=== PATIENT | female | born 1960 | race Caucasian/White ===

== ENCOUNTER 2018-03-21 19:49 | Emergency (ER) | payer MEDICAID ==
--- NOTE | 2018-03-21 20:24 | ER Document Report ---
ED Medical Screen (RME) - General Chief Complaint: Closed Head Injury Stated Complaint: HEAD INJURY Notes: Patient is a 57-year-old female who presents to the emergency department after being accidentally struck by a door yesterday at 1500. She states she has been a little "off" and has not been able to do ordinary things properly, such as fold laundry, cook, and other ADLs. She has complaints of photophobia and phonophobia. She states she has left-sided facial numbness. TRAVEL OUTSIDE OF THE [place] IN LAST 30 DAYS: No Review of Systems - Review of Systems Notes: EENT: Photophobia and phonophobia NEUROLOGICAL: Positive for weakness and dizziness. Denies altered mental status or loss of consciousness. Physical Exam - Vital signs Vitals: Temp Pulse Resp BP Pulse Ox 98.5 F 99 20 121/65 98 03/21/18 19:59 03/21/18 19:59 03/21/18 19:59 03/21/18 19:59 03/21/18 19:59 - Neurological Orientation: AAOx4 Bess Coma Scale Eye Opening: Spontaneous Bess Coma Scale Verbal: Oriented [place] Coma Scale Motor: Obeys Commands [place] Coma Scale Total: 15 Speech: Normal Course - Vital Signs Vital signs: Temp Pulse Resp BP Pulse Ox 98.5 F 99 20 121/65 98 03/21/18 19:59 03/21/18 19:59 03/21/18 19:59 03/21/18 19:59 03/21/18 19:59
[2018-03-21] MEDS ORDERED: ACETAMINOPHEN 325 MG TABLET PO ONE (20:27)
--- NOTE | 2018-03-21 21:52 | RADIOLOGY REPORT (SQ) ---
CT HEAD WITHOUT IV CONTRAST HISTORY: Head trauma. COMPARISON: None. TECHNIQUE: CT scan of the brain without contrast. This exam was performed according to our departmental dose-optimization program, which includes automated exposure control, adjustment of the mA and/or kV according to patient size and/or use of iterative reconstruction technique. FINDINGS: 3.9 x 3.9 x 3.0 cm well-circumscribed hypodense mass centered within the right parietal region near the aguilar-white junction, with surrounding hypodensity which may represent vasogenic edema. There is mass effect on the surrounding parenchyma with 9 mm right to left midline shift. There is also uncal herniation. There is a small focus of hyperdensity abutting the posterior aspect of the mass (axial image 18/34). No air-fluid levels in the paranasal sinuses. Calvarium is intact. IMPRESSION: 3.9 cm parenchymal mass centered at the right parietal region with surrounding edema. Findings may represent primary or secondary malignancy versus abscess. Contrast-enhanced MRI is recommended for complete evaluation. 9 mm right to left midline shift and right-sided uncal herniation is also present. Small focus of hyperdensity abutting the posterior aspect of the mass. Differential includes tiny focus of hemorrhage, calcification, or soft tissue.
[2018-03-21] MEDS ORDERED: DEXAMETHASONE SOD PHOS INJ 10 MG/1 ML VIAL IV ONE (22:07)
--- NOTE | 2018-03-21 22:34 | ER Document Report ---
ED General - General Chief Complaint: Closed Head Injury Stated Complaint: HEAD INJURY Time Seen by Provider: 03/21/18 20:47 Notes: Patient is a 57-year-old female with a past medical history of COPD, hypertension, hyperlipidemia, coronary artery disease, who presents with head trauma that occurred yesterday. She states that a door hit her head approximately 24 hours ago and since that time she has felt somewhat more confused. She does however relate that over the past 1-2 weeks she has noticed that she has a far worse dexterity on her left hand versus her right preventing her from performing activities of daily living such as folding closed. She also reports that the left side of her face is numb. States that she does feel somewhat weak on her left side. This is been ongoing and progressively worsening over the last 1 week. She denies a history of similar symptoms in the past. Nothing improves or worsens her symptoms. She denies associated chest pain or shortness of breath. No fever or constitutional symptoms. She does note that she intimately has a dull, throbbing, global headache. Nothing improves or worsens the headache. She has not seen her general doctor regarding these concerns. TRAVEL OUTSIDE OF THE [place] IN LAST 30 DAYS: No - Related Data Allergies/Adverse Reactions: No Known Allergies Allergy (Unverified 03/21/18 22:39) Past Medical History - General Information source: Patient - Social History Smoking Status: Current Every Day Smoker Chew tobacco use (# tins/day): No Frequency of alcohol use: None Drug Abuse: None Lives with: Spouse/Significant other Family History: Reviewed & Not Pertinent Patient has suicidal ideation: No Patient has homicidal ideation: No - Past Medical History Cardiac Medical History: Reports: Hx Hypertension Pulmonary Medical History: Reports: Hx Asthma, Hx COPD Endocrine Medical History: Reports: Hx Diabetes Mellitus Type 2 Renal/ Medical History: Denies: Hx Peritoneal Dialysis Musculoskeletal Medical History: Reports Hx Arthritis Past Surgical History: Reports: Hx Cardiac Catheterization - 7 stents, Hx Cholecystectomy, Hx Orthopedic Surgery Review of Systems - Review of Systems Notes: Constitutional: Negative for fever. HENT: Negative for sore throat. Eyes: Negative for visual changes. Cardiovascular: Negative for chest pain. Respiratory: Negative for shortness of breath. Gastrointestinal: Negative for abdominal pain, vomiting or diarrhea. Genitourinary: Negative for dysuria. Musculoskeletal: Negative for back pain. Skin: Negative for rash. Neurological: Positive for headache, left facial numbness, left-sided dexterity loss 10 point ROS negative except as marked above and in HPI. Physical Exam - Vital signs Vitals: Temp Pulse Resp BP Pulse Ox 98.5 F 99 20 121/65 98 03/21/18 19:59 03/21/18 19:59 03/21/18 19:59 03/21/18 19:59 03/21/18 19:59 Notes: PHYSICAL EXAMINATION: GENERAL: Well-appearing, well-nourished and in no acute distress. HEAD: Atraumatic, normocephalic. EYES: Pupils equal round and reactive to light, extraocular movements intact, sclera anicteric, conjunctiva are normal. ENT: nares patent, oropharynx clear without exudates. Moist mucous membranes. NECK: Normal range of motion, supple without lymphadenopathy LUNGS: Breath sounds clear to auscultation bilaterally and equal. No wheezes rales or rhonchi. HEART: Regular rate and rhythm without murmurs ABDOMEN: Soft, nontender, normoactive bowel sounds. No guarding, no rebound. No masses appreciated. EXTREMITIES: Normal range of motion, no pitting or edema. No cyanosis. NEUROLOGICAL: Face symmetric. Tongue protrudes midline. Extraocular motions intact. Pupils are 2 mm and equally reactive. Facial sensation diminished on the left. Normal speech, normal gait. Moderate dysdiadochokinesia on the right hand. 4+ out of 5 strength in the biceps and triceps on left as well as 4 + out of 5 on the distal and proximal strength on the left. 5 out of 5 biceps and triceps right upper extremity and right lower extremity PSYCH: Normal mood, normal affect. SKIN: Warm, Dry, normal turgor, no rashes or lesions noted. Course - Re-evaluation Re-evalutation: 03/21/18 22:28 Patient presents with complaints of 1 week of left facial numbness, lack of dexterity of the left hand and was apparently struck in the head by door yesterday. The head trauma component itself is not worrisome and I do not suspect that there is any effect of her nerve symptoms related to the head trauma yesterday. Particularly the patient reports that the lack of activity in the left hand as well as left-sided numbness has been ongoing for at least 1 week. For this reason a CT scan of the head was obtained and unfortunately does show a 4 cm mass in the right parietal lobe with a 9 mm leftward shift with associated vasogenic edema and uncal herniation on the right side. Patient was given 10 mg of dexamethasone IV. She looks remarkably well given her CT report. I did discuss with neurosurgery on-call at [facility] Dr. Dhillon who has accepted the patient in transfer. 03/22/18 02:04 Patient remains well in appearance, no change in neurologic assessment or exam. Continues to be alert and talking with family. Awaiting transport to [facility]. - Vital Signs Vital signs: Temp Pulse Resp BP Pulse Ox 98.5 F 99 20 121/65 98 03/21/18 19:59 03/21/18 19:59 03/21/18 19:59 03/21/18 19:59 03/21/18 19:59 - Laboratory Result Diagrams: 03/21/18 22:35 03/21/18 22:35 Laboratory results interpreted by me: 03/21/18 03/21/18 22:35 22:35 MCH 33.5 H Plt Count 139 L Glucose 166 H - Diagnostic Test Radiology reviewed: Image reviewed, Reports reviewed Radiology results interpreted by me: 03/22/18 02:04 CT head: Large mass in the right parietal lobe Discharge - Discharge Clinical Impression: Right parietal lobe mass, Uncal herniation Condition: Fair Disposition: [place]
[2018-03-21] MEDS ORDERED: NICOTINE 21 MG/24 HR PATCH.TD24 TD ONE (22:38)
[2018-03-21 22:51] LABS: ABSOLUTE BASOPHILS # (AUTO) 0.1 10^3/uL (0.0-0.2); ABSOLUTE LYMPHOCYTES (AUTO) 2.7 10^3/uL (0.5-4.7); ABSOLUTE MONOCYTES (AUTO) 0.6 10^3/uL (0.1-1.4); ABSOLUTE NEUT (AUTO) 3.1 10^3/uL (1.7-8.2); BASOPHILS % (AUTO) 0.9 % (0-2); EOSINOPHILS % (AUTO) 0.7 % (0-6); HEMATOCRIT 39.9 % (36.0-47.0); HEMOGLOBIN 14.1 g/dL (12.0-15.5); MEAN CORPUSCULAR HEMOGLOBIN 33.5 pg (27.0-33.4); MEAN CORPUSCULAR HGB CONC 35.3 g/dL (32.0-36.0); MEAN CORPUSCULAR VOLUME 95 fl (80-97); MONOCYTES % (AUTO) 9.4 % (3-13); PLATELET COUNT 139 10^3/uL (150-450); TOTAL CELLS COUNTED % (AUTO) 100 %; WHITE BLOOD COUNT 6.5 10^3/uL (4.0-10.5)
[2018-03-21 23:11] LABS: ALANINE AMINOTRANSFERASE 33 U/L (9-52); ALBUMIN 4.1 g/dL (3.5-5.0); ALKALINE PHOSPHATASE 92 U/L (38-126); ANION GAP 13 (5-19); ASPARTATE AMINO TRANSFERASE 29 U/L (14-36); BILIRUBIN,DIRECT 0.2 mg/dL (0.0-0.4); BILIRUBIN,TOTAL 0.5 mg/dL (0.2-1.3); BLOOD UREA NITROGEN 12 mg/dL (7-20); CALCIUM 9.5 mg/dL (8.4-10.2); CARBON DIOXIDE 27 mmol/L (22-30); CHLORIDE 103 mmol/L (98-107); GLUCOSE 166 mg/dL (75-110); POTASSIUM 4.5 mmol/L (3.6-5.0); SODIUM 143.3 mmol/L (137-145)
[2018-03-22] MEDS ORDERED: ALBUTEROL SULFATE 0.083% NEB 2.5 MG/3 ML AMPUL NEB SCH (06:00)
[2018-03-22 07:47] VITALS: BP 113/65
--- NOTE | 2018-03-22 07:47 | ER Document Report ---
Doctor's Note Notes: 03/22/18 07:46 Transport is here to take the patient to [place]. Vital signs are stable. Patient appears comfortable. Patient is stable for transport.
== END 2018-03-22 08:00 | disposition short-term general hospital (02) ==
LOC: ER 19:49
DX: G93.89 Other specified disorders of brain (principal); G93.5 Compression of brain; G93.6 Cerebral edema; R41.0 Disorientation, unspecified; R20.0 Anesthesia of skin; R27.8 Other lack of coordination; S09.90XA Unspecified injury of head, initial encounter; W22.8XXA Striking against or struck by other objects, initial encounter; R51 Headache; J44.9 Chronic obstructive pulmonary disease, unspecified; I10 Essential (primary) hypertension; I25.10 Atherosclerotic heart disease of native coronary artery without angina pectoris; F17.200 Nicotine dependence, unspecified, uncomplicated; E11.9 Type 2 diabetes mellitus without complications; Z95.5 Presence of coronary angioplasty implant and graft
CPT/HCPCS: 94640; 99285; 96374; 36415; 85025; 80053; 70450; J1100

== ENCOUNTER 2018-06-30 20:31 | Emergency (ER) | payer MEDICAID, OTHER ==
[2018-06-30] MEDS ORDERED: NORMAL SALINE 1000 ML 1,000 ML IV ONE (22:30)
[2018-06-30] MEDS ORDERED: MAG HYDROX/AL HYDROX/SIMETH SUSP 30 ML UDCUP PO ONE (22:32)
[2018-06-30] MEDS ORDERED: ONDANSETRON HCL INJ/PF 4 MG/2 ML SDV IV ONE (22:32)
[2018-06-30] MEDS ORDERED: LIDOCAINE 2% VISCOUS SOLN 20 ML UDCUP PO ONE (22:32)
[2018-06-30] MEDS ORDERED: METOCLOPRAMIDE HCL ORAL SOLN 10 MG/10 ML UDCUP PO ONE (22:32)
--- NOTE | 2018-06-30 22:36 | ER Document Report ---
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 Patient states that she is currently on chemo. This is her third cycle. She gets that for 3 days every 18. Her last chemo was 6 days ago. She is following up with Dr. Hester, oncology in [place]. Patient's not undergoing any radiation. She states that her last radiation treatment was in March and that was for the metastasis to the brain. Patient denies any fever, chills, shortness of breath. Patient does have a history of hypertension, hyperlipidemia, diabetes, coronary artery disease. TRAVEL OUTSIDE OF THE [place] IN LAST 30 DAYS: No - HPI Onset: Other - 2 days Quality of pain: Throbbing Severity: Moderate Associated symptoms: Diarrhea, Nausea, Vomiting Exacerbated by: Movement, Coughing, Deep breathing Relieved by: Denies Similar symptoms previously: No Recently seen / treated by doctor: Yes - Related Data Allergies/Adverse Reactions: No Known Allergies Allergy (Unverified 03/21/18 22:39) Past Medical History - General Information source: Patient - Social History Smoking Status: Current Some Day Smoker Frequency of alcohol use: None Drug Abuse: None Family History: Reviewed & Not Pertinent Patient has suicidal ideation: No Patient has homicidal ideation: No - Past Medical History Cardiac Medical History: Reports: Hx Hypertension Pulmonary Medical History: Reports: Hx Asthma, Hx COPD Endocrine Medical History: Reports: Hx Diabetes Mellitus Type 2 Renal/ Medical History: Denies: Hx Peritoneal Dialysis Musculoskeletal Medical History: Reports Hx Arthritis Past Surgical History: Reports: Hx Cardiac Catheterization - 7 stents, Hx Cholecystectomy, Hx Neurologic Surgery - brain tumor removed 02/2018, Hx Orthopedic Surgery Review of Systems - Review of Systems Constitutional: No symptoms reported EENT: No symptoms reported Cardiovascular: No symptoms reported Respiratory: No symptoms reported Gastrointestinal: Diarrhea, Nausea, Vomiting Genitourinary: No symptoms reported Female Genitourinary: No symptoms reported Musculoskeletal: See HPI Skin: No symptoms reported Hematologic/Lymphatic: No symptoms reported Neurological/Psychological: No symptoms reported -: Yes All other systems reviewed and negative Physical Exam - Vital signs Vitals: Temp Pulse Resp BP Pulse Ox 98.8 F 114 H 16 120/68 100 06/30/18 20:42 06/30/18 20:42 06/30/18 20:42 06/30/18 20:42 06/30/18 20:42 - Notes Notes: PHYSICAL EXAMINATION: GENERAL: Well-appearing, well-nourished and in no acute distress. HEAD: Atraumatic, normocephalic. EYES: Pupils equal round and reactive to light, extraocular movements intact, conjunctiva are normal. ENT: Nares patent, oropharynx clear without exudates. Moist mucous membranes. NECK: Normal range of motion, supple without lymphadenopathy LUNGS: Breath sounds clear to auscultation bilaterally and equal. No wheezes rales or rhonchi. HEART: Regular rate and rhythm without murmurs. Sternal tenderness to palpation. ABDOMEN: Soft, nontender, nondistended abdomen. No guarding, no rebound. No masses appreciated. Female : deferred Musculoskeletal: Normal range of motion, no pitting or edema. No cyanosis. NEUROLOGICAL: Cranial nerves grossly intact. Normal speech, normal gait. Normal sensory, motor exams PSYCH: Normal mood, normal affect. SKIN: Warm, Dry, normal turgor, no rashes or lesions noted. Course - Re-evaluation Re-evalutation: 06/30/18 23:06 EKG: Ventricular rate 99, MO interval 132, QRS duration 82, QTc 468, normal sinus rhythm, no ST segment elevation. 07/01/18 01:23 Pancytopenia appreciated on lab work. Patient denies any hematemesis, melena, hematochezia. Patient's magnesium is low. Magnesium sulfate ordered. Patient given a liter of fluids. Patient was given fentanyl, GI cocktail. Patient st ates that the GI cocktail helped minimally with her symptoms. She states that the fentanyl did improve the sternal pain. Chest x-ray did not show an acute process. Sternal x-ray does not show any fracture. Patient continues to have pain with palpation. Troponin is within normal limits. EKG did not show an ST segment elevation. I contacted [facility] for transfer. Transfer was accepted. Patient currently stable. - Vital Signs Vital signs: Temp Pulse Resp BP Pulse Ox 98.8 F 114 H 16 120/68 100 06/30/18 20:42 06/30/18 20:42 06/30/18 20:42 06/30/18 20:42 06/30/18 20:42 - Laboratory Result Diagrams: 06/30/18 23:23 06/30/18 23:23 Laboratory results interpreted by me: 06/30/18 06/30/18 06/30/18 22:55 23:23 23:23 WBC 0.5 L* RBC 2.12 L Hgb 7.3 L Hct 20.3 L MCH 34.5 H Plt Count 68 L Sodium 133.9 L Creatinine 0.48 L Glucose 200 H Magnesium 1.5 L AST 12 L Total Protein 5.5 L Albumin 3.3 L Urine Protein 30 H Urine Glucose (UA) 50 H Urine Ketones TRACE H Urine Blood SMALL H Urine Urobilinogen 2.0 H Discharge - Discharge Clinical Impression: Pancytopenia due to chemotherapy, Hypomagnesemia, Dehydration Nausea & vomiting Qualifiers: Vomiting type: unspecified Vomiting Intractability: non-intractable Qualified Code(s): R11.2 - Nausea with vomiting, unspecified Condition: Stable Disposition: [facility]
--- NOTE | 2018-06-30 23:03 | RADIOLOGY REPORT (SQ) ---
EXAM DESCRIPTION: XR CHEST 2 VIEWS COMPLETED DATE/TME: 06/30/2018 22:31 CLINICAL HISTORY: 57 years, Female, sternal pain COMPARISON: None. NUMBER OF VIEWS: 2 TECHNIQUE: Frontal and lateral views of the chest LIMITATIONS: None. FINDINGS: Heart size is normal. [id number] catheter in place. Lungs are clear. No pneumothorax IMPRESSION: No acute cardiopulmonary process copyright 2010 [employer]- All Rights Reserved
--- NOTE | 2018-06-30 23:05 | RADIOLOGY REPORT (SQ) ---
EXAM DESCRIPTION: XR STERNUM 2 OR MORE VIEWS COMPLETED DATE/TME: 06/30/2018 00:00 CLINICAL HISTORY: 57 years, Female, STERNAL PAIN COMPARISON: None. NUMBER OF VIEWS: 2 TECHNIQUE: 2 views of the sternum LIMITATIONS: None. FINDINGS: Overlying [id number] catheter. Chronic changes to the sternum with no radiographic evidence for sternal fracture or cortical disruption. IMPRESSION: No acute osseous abnormality copyright 2010 [employer]- All Rights Reserved
[2018-06-30 23:16] LABS: AMORPHOUS SEDIMENT,URINE TRACE /HPF; APPEARANCE,URINE SLIGHTLY-CLOUDY; BILIRUBIN,URINE NEGATIVE (NEGATIVE); GLUCOSE, URINE 50 mg/dL (NEGATIVE); KETONES,URINE TRACE mg/dL (NEGATIVE); LEUKOCYTE ESTERASE,URINE NEGATIVE (NEGATIVE); NITRITE,URINE NEGATIVE (NEGATIVE); PROTEIN,URINE 30 mg/dL (NEGATIVE); URINE SPECIFIC GRAVITY 1.017
[2018-06-30 23:17] LABS: COLOR,URINE YELLOW
[2018-06-30] MEDS ORDERED: FENTANYL CITRATE INJ/PF 100 MCG/2 ML AMPUL IV ONE (23:40)
[2018-06-30 23:52] LABS: HEMATOCRIT 20.3 % (36.0-47.0); MEAN CORPUSCULAR HEMOGLOBIN 34.5 pg (27.0-33.4); MEAN CORPUSCULAR VOLUME 96 fl (80-97); RED BLOOD COUNT 2.12 10^6/uL (3.72-5.28); RED CELL DISTRIBUTION WIDTH 13.1 % (11.5-14.0)
[2018-06-30 23:54] LABS: ALANINE AMINOTRANSFERASE 32 U/L (9-52); ALBUMIN 3.3 g/dL (3.5-5.0); ALKALINE PHOSPHATASE 72 U/L (38-126); ANION GAP 8 (5-19); ASPARTATE AMINO TRANSFERASE 12 U/L (14-36); BILIRUBIN,DIRECT 0.1 mg/dL (0.0-0.4); BILIRUBIN,TOTAL 0.9 mg/dL (0.2-1.3); BLOOD UREA NITROGEN 14 mg/dL (7-20); CALCIUM 8.5 mg/dL (8.4-10.2); CARBON DIOXIDE 24 mmol/L (22-30); CHLORIDE 102 mmol/L (98-107); GLUCOSE 200 mg/dL (75-110); POTASSIUM 3.6 mmol/L (3.6-5.0); SODIUM 133.9 mmol/L (137-145); TOTAL PROTEIN 5.5 g/dL (6.3-8.2)
[2018-07-01 00:18] LABS: PLATELET COMMENT DECREASED; TOXIC GRANULATION SLIGHT
[2018-07-01 00:19] LABS: PLATELET COUNT 68 10^3/uL (150-450)
[2018-07-01 00:24] LABS: HEMOGLOBIN 7.3 g/dL (12.0-15.5); WHITE BLOOD COUNT 0.5 10^3/uL (4.0-10.5)
[2018-07-01] MEDS: MAGNESIUM SULFATE/D5W 1 GM/100 ML RTUPB IV SCH ×2 (01:23→02:33)
[2018-07-01 02:05] VITALS: BP 99/56
[2018-07-01 12:52] LABS: PATH REVIEW PATHOLOGIST REVIEWED
--- NOTE | 2018-07-01 21:11 | EKG REPORT ---
SEVERITY:- ABNORMAL ECG - SINUS RHYTHM CONSIDER POSTERIOR INFARCT BORDERLINE T WAVE ABNORMALITIES : Confirmed by: Rachel Dennis 01-Jul-2018 21:10:43
== END 2018-07-01 03:03 | disposition short-term general hospital (02) ==
LOC: ER 20:31
DX: D61.810 Antineoplastic chemotherapy induced pancytopenia (principal); T45.1X5A Adverse effect of antineoplastic and immunosuppressive drugs, initial encounter; C34.90 Malignant neoplasm of unspecified part of unspecified bronchus or lung; C79.31 Secondary malignant neoplasm of brain; R11.2 Nausea with vomiting, unspecified; R19.7 Diarrhea, unspecified; E83.42 Hypomagnesemia; E86.0 Dehydration; M89.8X8 Other specified disorders of bone, other site; Z92.3 Personal history of irradiation; I10 Essential (primary) hypertension; I25.10 Atherosclerotic heart disease of native coronary artery without angina pectoris; E11.9 Type 2 diabetes mellitus without complications; F17.200 Nicotine dependence, unspecified, uncomplicated; Z95.5 Presence of coronary angioplasty implant and graft; J44.9 Chronic obstructive pulmonary disease, unspecified
CPT/HCPCS: 93005; 99284; 96361; 96375; 96365; 96366; 36415; 87086; 83735; 85025; 80053; 81001; 84484; 71046; 71120; 93010; J3010; J3490 ×3; J3475; J2405; J7030

== ENCOUNTER 2018-08-09 05:07 | Inpatient (IN) | payer MEDICAID ==
--- NOTE | 2018-08-09 05:20 | ER Document Report ---
ED Medical Screen (RME) - General Stated Complaint: FALL/HEAD INJURY Time Seen by Provider: 08/09/18 05:17 Notes: 57-year-old female who comes by EMS after a fall, it is unclear whether patient had a syncopal episode or seizure, she does have a history of seizures and has 1 about once a month she reports. EMS reports seeing her stop responding briefly and rolled her eyes back into her head, however this resolved after a few seconds. Patient cannot tell me what happened before the fall and does not remember falling. Past medical history includes brain cancer, status post brain surgery, she is on Effient as well. She cannot tell me where she follows neurosurgery or oncology. She is currently on chemotherapy. TRAVEL OUTSIDE OF THE [place] IN LAST 30 DAYS: No - Related Data Allergies/Adverse Reactions: No Known Allergies Allergy (Unverified 03/21/18 22:39) Past Medical History - Past Medical History Cardiac Medical History: Reports: Hx Hypertension Pulmonary Medical History: Reports: Hx Asthma, Hx COPD Endocrine Medical History: Reports: Hx Diabetes Mellitus Type 2 Renal/ Medical History: Denies: Hx Peritoneal Dialysis Musculoskeltal Medical History: Reports Hx Arthritis Past Surgical History: Reports: Hx Cardiac Catheterization - 7 stents, Hx Cholecystectomy, Hx Neurologic Surgery - brain tumor removed 02/2018, Hx Orthopedic Surgery Physical Exam - Neurological Orientation: Disoriented to place, Disoriented to time, Disoriented to events Bess Coma Scale Eye Opening: Spontaneous [place] Coma Scale Verbal: Confused Bess Coma Scale Motor: Obeys Commands [place] Coma Scale Total: 14 Course - Re-evaluation Re-evalutation: Patient is confused to events but she is cooperative and follows all directions without difficulty. She is slightly sluggish, possibly postictal. Workup pending. I have greeted and performed a rapid initial assessment of this patient. A comprehensive ED assessment and evaluation of the patient, analysis of test resu lts and completion of the medical decision making process will be conducted by additional ED providers.
[2018-08-09] MEDS ORDERED: NORMAL SALINE 1000 ML 1,000 ML IV ONE ×2 (05:37→06:54)
[2018-08-09 05:51] LABS: HEMATOCRIT 31.8 % (36.0-47.0); HEMOGLOBIN 11.1 g/dL (12.0-15.5); MEAN CORPUSCULAR HEMOGLOBIN 32.5 pg (27.0-33.4); MEAN CORPUSCULAR HGB CONC 34.9 g/dL (32.0-36.0); MEAN CORPUSCULAR VOLUME 93 fl (80-97); PLATELET COUNT 133 10^3/uL (150-450); RED BLOOD COUNT 3.41 10^6/uL (3.72-5.28); RED CELL DISTRIBUTION WIDTH 17.6 % (11.5-14.0); WHITE BLOOD COUNT 29.8 10^3/uL (4.0-10.5)
[2018-08-09 06:02] LABS: ALANINE AMINOTRANSFERASE 49 U/L (9-52); ALBUMIN 3.3 g/dL (3.5-5.0); ALKALINE PHOSPHATASE 97 U/L (38-126); ANION GAP 7 (5-19); ASPARTATE AMINO TRANSFERASE 39 U/L (14-36); BILIRUBIN,DIRECT 0.1 mg/dL (0.0-0.4); BILIRUBIN,TOTAL 0.7 mg/dL (0.2-1.3); BLOOD UREA NITROGEN 20 mg/dL (7-20); CALCIUM 8.6 mg/dL (8.4-10.2); CARBON DIOXIDE 21 mmol/L (22-30); CHLORIDE 111 mmol/L (98-107); GLUCOSE 109 mg/dL (75-110); POTASSIUM 3.4 mmol/L (3.6-5.0); SODIUM 138.7 mmol/L (137-145); TOTAL PROTEIN 5.7 g/dL (6.3-8.2)
[2018-08-09 06:03] LABS: ALCOHOL < 10 mg/dL (NONE DETECTED)
[2018-08-09 06:17] LABS: ABSOLUTE LYMPHOCYTES# (MANUAL) 0.9 10^3/uL (0.5-4.7); ABSOLUTE MONOCYTES # (MANUAL) 0.3 10^3/uL (0.1-1.4); ABSOLUTE NEUTROPHILS# (MANUAL) 28.6 10^3/uL (1.7-8.2); BASOPHILS % (MANUAL) 0 % (0-2); EOSINOPHILS % (MANUAL) 0 % (0-6); LYMPHOCYTES % (MANUAL) 3 % (13-45); MONOCYTES % (MANUAL) 1 % (3-13); SEGMENTED NEUTROPHILS % (MAN) 96 % (42-78); TOTAL CELLS COUNTED 100
[2018-08-09 06:19] LABS: TOXIC GRANULATION 1+; TOXIC VACUOLATION PRESENT
[2018-08-09 06:20] LABS: ANISOCYTOSIS 1+; HELMET CELLS SLIGHT; OVALOCYTES SLIGHT; PLATELET COMMENT ADEQUATE; POIKILOCYTOSIS 1+; TEAR DROP CELLS 1+
--- NOTE | 2018-08-09 06:36 | RADIOLOGY REPORT (SQ) ---
EXAM DESCRIPTION: CT HEAD WITHOUT IV CONTRAST COMPLETED DATE/TME: 08/09/2018 05:17 CLINICAL HISTORY: 57 years Female, head injury, on effient COMPARISON: 03/21/18 TECHNIQUE: No contrast. Coronal and sagittal reformat. This exam was performed according to our departmental dose-optimization program, which includes automated exposure control, adjustment of the mA and/or kV according to patient size and/or use of iterative reconstruction technique. FINDINGS: Encephalomalacia/gliosis and small high attenuation surgical material of the right parietal lobe with overlying craniotomy site. No hemorrhage. No mass, mass effect, or midline shift. Atherosclerosis. Brain and extra-axial structures appear otherwise intact. IMPRESSION: No acute findings.
--- NOTE | 2018-08-09 06:38 | RADIOLOGY REPORT (SQ) ---
EXAM DESCRIPTION: CT CERVICAL SPINE WITHOUT IV CONTRAST COMPLETED DATE/TME: 08/09/2018 05:17 CLINICAL HISTORY: 57 years Female, head injury, neck pain Comparison: None. Technique: No contrast. Coronal and sagittal reformat. This exam was performed according to our departmental dose-optimization program, which includes automated exposure control, adjustment of the mA and/or kV according to patient size and/or use of iterative reconstruction technique.[facility]: Dose Right [facility]: CareDose [facility]: Dose Right [facility]: Teradose 4D [facility]: [email or web address] LIMITATIONS: None Findings: Normal alignment. Normal curvature. No fracture. Mild spondylosis left more than right. Normal vertebral heights. Partially imaged nuchal soft tissues, inferior cranium, and upper thorax appear otherwise grossly intact. Adequate appearing right jugular central line, partially obscured. IMPRESSION: No acute findings.
--- NOTE | 2018-08-09 06:40 | RADIOLOGY REPORT (SQ) ---
EXAM DESCRIPTION: XR CHEST 1 VIEW COMPLETED DATE/TME: 08/09/2018 05:17 CLINICAL HISTORY: 57 years Female, altered mental status COMPARISON: None. NUMBER OF VIEWS/TECHNIQUE: 1/AP FINDINGS: Adequate lung volume, clear parenchyma, normal cardiac silhouette, and intact bony thorax. Adequate appearing right jugular central line. IMPRESSION: No acute cardiopulmonary findings.
--- NOTE | 2018-08-09 06:44 | RADIOLOGY REPORT (SQ) ---
EXAM DESCRIPTION: XR HIP BILATERAL COMPLETED DATE/TME: 08/09/2018 05:17 CLINICAL HISTORY: 57 years Female, fall, pain COMPARISON: None. Findings: Bones, joints, and soft tissues of the BILATERAL XR HIP 3 VIEW BILATERAL appear intact. IMPRESSION: No acute findings.
[2018-08-09] MEDS ORDERED: MAGNESIUM SULFATE/D5W 1 GM/100 ML RTUPB IV ONE (06:54)
[2018-08-09] MEDS ORDERED: POTASSIUM CHLORIDE 20 MEQ/15 ML UDCUP PO ONE (06:54)
--- NOTE | 2018-08-09 07:13 | ER Document Report ---
ED General - General Chief Complaint: Fainting Stated Complaint: FALL/HEAD INJURY Time Seen by Provider: 08/09/18 05:17 TRAVEL OUTSIDE OF THE [place] IN LAST 30 DAYS: No - HPI Notes: Patient is a 57-year-old female presents the emergency department for evaluation. Evidently she got up to go to the bathroom. She experienced either a syncopal episode or seizure. Her heard her fall. She has no memory of the event. She did wake up on the floor. She is complaining of pain to me in bilateral shoulders. Patient has had craniotomy for a right parietal mass. This was resected and she is currently on chemotherapy. Per the her chemotherapeutic agent was changed on Friday. She has had some nausea but only one episode of emesis so far this morning since her treatment. She also notes that she has had some dysuria, but is unsure as to when this started. - Related Data Allergies/Adverse Reactions: No Known Allergies Allergy (Unverified 03/21/18 22:39) Past Medical History - General Information source: Patient - Social History Smoking Status: Former Smoker Drug Abuse: None Family History: Reviewed & Not Pertinent - Past Medical History Cardiac Medical History: Reports: Hx Hypertension Pulmonary Medical History: Reports: Hx Asthma, Hx COPD Endocrine Medical History: Reports: Hx Diabetes Mellitus Type 2 Renal/ Medical History: Denies: Hx Peritoneal Dialysis Malignancy Medical History: Reports: Hx Lung Cancer - Small cell, stage IV leandro wongy Musculoskeletal Medical History: Reports Hx Arthritis Past Surgical History: Reports: Hx Cardiac Catheterization - 7 stents, Hx Cholecystectomy, Hx Neurologic Surgery - brain tumor removed 02/2018, Hx Orthopedic Surgery Review of Systems - Review of Systems Constitutional: Malaise, Weakness EENT: No symptoms reported Cardiovascular: Syncope Respiratory: No symptoms reported Gastrointestinal: See HPI Genitourinary: See HPI Musculoskeletal: See HPI Skin: No symptoms reported Neurological/Psychological: See HPI Physical Exam - Vital signs Vitals: Temp Pulse Resp BP Pulse Ox 97.3 F 67 16 99/61 L 100 08/09/18 05:07 08/09/18 05:07 08/09/18 05:07 08/09/18 05:07 08/09/18 05:07 Notes: Afebrile. Blood pressure in the 90s and 100 systolic. Respiratory 16 and unlabored. SPO2 100% on room air. - Notes Notes: Frail-appearing 57-year-old female, appears older than her stated age in no acute distress. Is normocephalic and appears atraumatic. No tenderness. C- collar in place. Oral mucous is moist. Heart is regular rate and rhythm, lungs are clear to auscultation bilaterally. Full active and passive range of motion of bilateral shoulders, neurovascularly intact in bilateral upper extremities. Chest wall is nontender. Abdomen soft, nontender, normoactive bowel sounds. Mild tenderness to palpation over the greater trochanter on the right. No significant tenderness with passive range of motion of the hips. Neurovascularly intact. Patient is awake and alert, oriented x3. No focal neurological deficits. Course - Re-evaluation Re-evalutation: 08/09/18 07:15 Patient presents emergency department for evaluation. Initial orders were placed by proceeding provider. I did go and evaluate the patient. At the time of my evaluation blood pressures are in the 80s. IV fluids placed on a pump. My suspicion is that this patient did become orthostatic. Imaging failed to reveal any acute abnormality. She did have mildly low magnesium and potassium, this was replaced. Because of her immunocompromised state, I did order blood cultures. Urinalysis is pending at this time. We will continue to follow. 08/09/18 11:23 Patient had 2 L of fluid, as well as magnesium and potassium. Despite these interventions, her blood pressure dropped into the 60s with standing. Urinalysis did reveal large leukocyte esterase, given her symptoms we will treat. Her white blood cell count is markedly high but I suspect is secondary to Neupogen treatment. Patient resting comfortably, current blood pressure 109/62. I spoke with Dr. Kasper, patient will be admitted to [facility]. - Vital Signs Vital signs: Temp Pulse Resp BP Pulse Ox 98.2 F 69 20 130/67 H 100 08/12/18 11:15 08/12/18 11:15 08/12/18 11:05 08/12/18 11:15 08/12/18 11:15 - Laboratory Result Diagrams: 08/12/18 05:00 08/12/18 05:00 Laboratory results interpreted by me: 08/09/18 08/09/18 08/09/18 05:34 05:34 08:20 WBC 29.8 H RBC 3.41 L Hgb 11.1 L Hct 31.8 L RDW 17.6 H Plt Count 133 L Seg Neuts % (Manual) 96 H Lymphocytes % (Manual) 3 L Monocytes % (Manual) 1 L Abs Neuts (Manual) 28.6 H Potassium 3.4 L Chloride 111 H Carbon Dioxide 21 L Magnesium 1.5 L AST 39 H Total Protein 5.7 L Albumin 3.3 L Urine Blood SMALL H Ur Leukocyte Esterase MODERATE H - Diagnostic Test Radiology reviewed: Reports reviewed - EKG Interpretation by Me Additional EKG results interpreted by me: 08/09/18 11:23 Normal sinus mechanism with a rate of 71 bpm. First-degree AV block. Nonspecific ST changes, no acute changes concerning for ischemia or infarction. Discharge - Discharge Clinical Impression: Orthostatic hypotension, Hypokalemia, Hypomagnesemia UTI (urinary tract infection) Qualifiers: Urinary tract infection type: acute cystitis Hematuria presence: without hematuria Qualified Code(s): N30.00 - Acute cystitis without hematuria Condition: Stable Disposition: ADMITTED INPATIENT Admitting Provider: Jhony Walter Unit Admitted: [facility]
--- NOTE | 2018-08-09 08:30 | EKG REPORT ---
SEVERITY:- DEFECTIVE ECG - SINUS RHYTHM NONSPECIFIC T ABNORMALITIES, INFERIOR LEADS PRECORDIAL LEAD PLACEMENT ERROR!! : Confirmed by: Adriel Johnson MD 09-Aug-2018 08:29:55
[2018-08-09 08:54] LABS: APPEARANCE,URINE CLOUDY; BILIRUBIN,URINE NEGATIVE (NEGATIVE); COLOR,URINE YELLOW; GLUCOSE, URINE NEGATIVE (NEGATIVE); KETONES,URINE NEGATIVE (NEGATIVE); LEUKOCYTE ESTERASE,URINE MODERATE (NEGATIVE); NITRITE,URINE NEGATIVE (NEGATIVE); PROTEIN,URINE NEGATIVE (NEGATIVE); URINE SPECIFIC GRAVITY 1.011; UROBILINOGEN,URINE NEGATIVE mg/dL (<2.0)
[2018-08-09] MEDS ORDERED: CEFTRIAXONE 1 GM/D5W RTU 1 GM/50 ML RTUPB IV ONE (09:18)
[2018-08-09] MEDS ORDERED: IPRATROPIUM/ALBUTEROL 0.5-2.5 MG/3 ML AMPUL NEB PRN (11:46)
[2018-08-09] MEDS ORDERED: VANCOMYCIN HCL 1,000 MG in DEXTROSE 5%-WATER 250 ML IV ONE (13:00)
[2018-08-09] MEDS: ENOXAPARIN SODIUM INJ 40 MG/0.4 ML DISP.SYRIN SUBCUT SCH (13:40)
[2018-08-09] MEDS: NORMAL SALINE 1000 ML 1,000 ML IV PRN ×2 (15:10→22:10)
[2018-08-09] MEDS ORDERED: ACETAMINOPHEN 325 MG TABLET ONE (16:05)
[2018-08-09] MEDS: ACETAMINOPHEN 325 MG TABLET PO PRN (16:11)
[2018-08-09] MEDS ORDERED: DEXTROSE 50%-WATER SYRINGE 12.5 GM/25 ML DOSE IV PRN (16:30)
[2018-08-09] MEDS ORDERED: DEXTROSE 50%-WATER SYRINGE 25 GM/50 ML DOSE IV PRN (16:30)
[2018-08-09] MEDS ORDERED: DEXTROSE 40% GEL 15 GM TUBE X 2 PO PRN (16:30)
[2018-08-09] MEDS ORDERED: GLUCAGON,HUMAN RECOMB 1 MG INJ IM PRN (16:30)
[2018-08-09] MEDS ORDERED: DEXTROSE 40% GEL 15 GM TUBE PO PRN (16:30)
--- NOTE | 2018-08-09 19:58 | HISTORY AND PHYSICAL E ---
History and Physical NAME: DIEUDONNE FONSECA : 1960 AGE: 57Y ADMITTED: 08/09/2018 ROOM: 305 CHIEF COMPLAINT: Fall. HISTORY OF THE PRESENT ILLNESS: The patient is a 57-year-old female who has a past medical history of hypertension and arthritis, coronary artery disease status post stent placement. The patient was diagnosed, last year, with lung cancer metastatic to the brain. She had a craniotomy. The patient also had a seizure, she is antiseizure. She was brought to the emergency room because she was falling at home and in the emergency room was found to be dehydrated, hypotensive. She denied any fever or chills. The patient was orthostatic also. She received 2 liters of normal saline and she is feeling better. When I saw her blood pressure is 110/58. Denies any nausea, vomiting, or diarrhea. No fever, no chills. She has a mild cough. No night sweats or chills. The patient had recent chemotherapy last week. She has a poor appetite but she denies any nausea, vomiting, or diarrhea. REVIEW OF SYSTEMS: GENERAL: There is no fever or chills. She had generalized fatigue. HEAD: No headache, but she had lightheadedness. EYES: No diplopia. EARS: No discharge from the ears. NECK: No pain. CARDIOVASCULAR: No chest pain or paroxysmal nocturnal dyspnea or orthopnea. RESPIRATORY: Diagnosed with a lung cancer recently. GASTROINTESTINAL: No nausea, vomiting, or diarrhea but has decreased appetite. ENDOCRINE: No polyuria, polyphagia, or polydipsia. HEMATOLOGIC/LYMPHOCYTIC: No anemia, no easy bruising. SKIN: No rash. PAST MEDICAL HISTORY: 1. Lung cancer, diagnosed recently, which is metastatic to the brain. 2. Coronary artery disease, which is post cardiac cath and 7 stent placements. 3. Hypertension, controlled. 4. Arthritis. PAST SURGICAL HISTORY: 1. Coronary artery disease, stent placement. 2. Cholecystectomy. 3. Craniotomy for metastatic brain tumor. FAMILY HISTORY: Unremarkable. SOCIAL HISTORY: , lives with her . She used to smoke in the past, since she was 15. CURRENT MEDICATIONS: 1. Albuterol. 2. Cefepime. 3. Vancomycin. PHYSICAL EXAMINATION: GENERAL: The patient is lying in bed comfortable, not in distress. VITAL SIGNS: Blood pressure 110/50, heart rate 82, saturation 100% on room air. HEENT: Head is normocephalic, atraumatic. Pupils are round and reactive to light and accommodation bilaterally. Extraocular movements are intact. Ears: Tympanic membranes are intact bilaterally. No discharge from the ears. No discharge from the nose. NECK: Supple. No increased JVD, no thyromegaly, and no lymphadenopathy. CARDIOVASCULAR: Normal S1, S2. Regular rate and rhythm. No murmur and no gallop. RESPIRATORY: Bilateral crackles. ABDOMEN: Soft and nontender. MUSCULOSKELETAL: No edema. NEUROLOGIC: Awake, alert. SKIN: No rash. LABORATORY DATA: White blood count is 29, hemoglobin is 11. Sodium is 138, potassium is 3.1. IMAGING STUDIES: Chest x-ray; no acute pulmonary process. ASSESSMENT: 1. SYNCOPE, PROBABLY SECONDARY TO DEHYDRATION, DECREASED APPETITE. 2. SEPSIS, SEPTIC SHOCK. Improved with IV fluids. 3. LUNG CANCER. 4. DEHYDRATION. 5. MILD HYPOKALEMIA PLAN: 1. Admit the patient to MICU. 2. IV fluids, aggressive hydration with normal saline. She received 2 liters. We will put her on NS 150 mL/hr. 3. We will start her on antibiotics, cefepime and vancomycin. 4. Blood cultures. 5. Urine culture. 6. DVT prophylaxis. 7. GI prophylaxis. CODE STATUS: Full code. DICTATING PHYSICIAN: NED MAYO M.D. [id number] PHY#: [id number] ID: [id number] JOB#: [id number] ACCT: [id number] cc:CHRIS SAHA M.D. >
[2018-08-09] MEDS: INSULIN LISPRO 100 UNIT/ML 3 ML VIAL SUBCUT SCH (21:39)
[2018-08-09] MEDS ORDERED: CEFEPIME HCL 2 GM in DEXTROSE 5%-WATER 50 ML IV SCH (22:00)
[2018-08-09] MEDS ORDERED: CEFEPIME 2 GM/D5W RTU 2 GM/50 ML RTUPB IV ONE (22:03)
[2018-08-09] MEDS: CEFEPIME 2 GM/D5W RTU 2 GM/50 ML RTUPB IV SCH (22:10)
[2018-08-10 04:58] LABS: HEMATOCRIT 24.9 % (36.0-47.0); MEAN CORPUSCULAR HEMOGLOBIN 32.2 pg (27.0-33.4); MEAN CORPUSCULAR HGB CONC 35.1 g/dL (32.0-36.0); MEAN CORPUSCULAR VOLUME 92 fl (80-97); RED BLOOD COUNT 2.71 10^6/uL (3.72-5.28); RED CELL DISTRIBUTION WIDTH 16.2 % (11.5-14.0); WHITE BLOOD COUNT 18.9 10^3/uL (4.0-10.5)
[2018-08-10 05:09] LABS: HEMOGLOBIN 8.7 g/dL (12.0-15.5); PLATELET COUNT 87 10^3/uL (150-450)
[2018-08-10 05:11] LABS: ANION GAP 9 (5-19); BLOOD UREA NITROGEN 14 mg/dL (7-20); CALCIUM 8.1 mg/dL (8.4-10.2); CARBON DIOXIDE 18 mmol/L (22-30); CHLORIDE 113 mmol/L (98-107); GLUCOSE 159 mg/dL (75-110); POTASSIUM 3.2 mmol/L (3.6-5.0); SODIUM 139.7 mmol/L (137-145)
[2018-08-10 05:23] LABS: ABSOLUTE LYMPHOCYTES# (MANUAL) 0.8 10^3/uL (0.5-4.7); ABSOLUTE NEUTROPHILS# (MANUAL) 18.1 10^3/uL (1.7-8.2); BAND NEUTROPHILS % (MANUAL) 1 % (3-5); BASOPHILS % (MANUAL) 0 % (0-2); EOSINOPHILS % (MANUAL) 0 % (0-6); LYMPHOCYTES % (MANUAL) 4 % (13-45); MONOCYTES % (MANUAL) 0 % (3-13); SEGMENTED NEUTROPHILS % (MAN) 95 % (42-78); TOTAL CELLS COUNTED 100
[2018-08-10 05:24] LABS: ANISOCYTOSIS 1+; PLATELET COMMENT DECREASED; TEAR DROP CELLS 1+; TOXIC VACUOLATION PRESENT
[2018-08-10] MEDS: NORMAL SALINE 1000 ML 1,000 ML IV PRN ×3 (07:30→23:18)
[2018-08-10] MEDS: INSULIN LISPRO 100 UNIT/ML 3 ML VIAL SUBCUT SCH ×6 (08:01→23:19)
[2018-08-10] MEDS: ACETAMINOPHEN 325 MG TABLET PO PRN (09:00)
[2018-08-10] MEDS: ENOXAPARIN SODIUM INJ 40 MG/0.4 ML DISP.SYRIN SUBCUT SCH (09:01)
[2018-08-10] MEDS: CEFEPIME 2 GM/D5W RTU 2 GM/50 ML RTUPB IV SCH ×2 (10:12→23:20)
[2018-08-10] MEDS ORDERED: MELATONIN 3 MG TABLET PO PRN (10:45)
[2018-08-10] MEDS ORDERED: APREPITANT IV SCH (10:45)
[2018-08-10] MEDS ORDERED: CALCIUM CARBONATE 500 MG TAB.CHEW PO PRN (10:45)
[2018-08-10] MEDS ORDERED: PROCHLORPERAZINE MALEATE 10 MG TABLET PO PRN (10:45)
--- NOTE | 2018-08-10 11:10 | PDOC PROGRESS REPORT ---
Subjective Progress Note for:: 08/10/18 Subjective:: 57-year-old female with history of lung cancer on chemotherapy last dose is on Friday she has also history of craniotomy for metastatic brain disease came in after history of fall CT head was negative for acute changes complaining of headaches she said Tylenol is not working I am going to put her on Percocet 2 tablets every 4 as needed for pain. Denies any other complaints. No acute events in the last [address] Orr was requested. Reason For Visit: SERIOUS HYPOTENSION,SYNCOPE Physical Exam Vital Signs: Temp Pulse Resp BP Pulse Ox 97.6 F 86 13 125/64 100 08/10/18 07:51 08/10/18 07:51 08/10/18 07:51 08/10/18 07:51 08/10/18 07:51 Intake & Output 08/09/18 08/10/18 08/11/18 06:59 06:59 06:59 Intake Total 3500 1000 Output Total 300 Balance 3200 1000 Weight 78.9 kg 77.9 kg General appearance: PRESENT: no acute distress Head exam: PRESENT: atraumatic Eye exam: PRESENT: PERRLA Neck exam: ABSENT: carotid bruit, JVD, lymphadenopathy, thyromegaly Respiratory exam: PRESENT: clear to auscultation lorna. ABSENT: rales, rhonchi, wheezes Cardiovascular exam: PRESENT: RRR. ABSENT: diastolic murmur, rubs, systolic murmur GI/Abdominal exam: PRESENT: normal bowel sounds, soft. ABSENT: distended, guarding, mass, organolmegaly, rebound, tenderness Extremities exam: PRESENT: full ROM. ABSENT: calf tenderness, clubbing, pedal edema Neurological exam: PRESENT: alert, awake, oriented to person, oriented to place, oriented to time, oriented to situation, CN II-XII grossly intact. ABSENT: motor sensory deficit Psychiatric exam: PRESENT: appropriate affect, normal mood. ABSENT: homicidal ideation, suicidal ideation Results Laboratory Results: 08/10/18 04:05 08/10/18 04:05 08/10/18 08/10/18 04:05 04:05 WBC 18.9 H RBC 2.71 L Hgb 8.7 L D Hct 24.9 L MCV 92 MCH 32.2 MCHC 35.1 RDW 16.2 H Plt Count 87 L Seg Neutrophils % Not Reportable Lymphocytes % Not Reportable Monocytes % Not Reportable Eosinophils % Not Reportable Basophils % Not Reportable Absolute Neutrophils Not Reportable Absolute Lymphocytes Not Reportable Absolute Monocytes Not Reportable Absolute Eosinophils Not Reportable Absolute Basophils Not Reportable Sodium 139.7 Potassium 3.2 L Chloride 113 H Carbon Dioxide 18 L Anion Gap 9 BUN 14 Creatinine 0.58 Est GFR ( Amer) > 60 Est GFR (Non-Af Amer) > 60 Glucose 159 H Calcium 8.1 L 08/09/18 05:34 Troponin I < 0.012 Impressions: Cervical Spine CT 08/09/18 05:17 IMPRESSION: No acute findings. Chest X-Ray 08/09/18 05:17 IMPRESSION: No acute cardiopulmonary findings. Head CT 08/09/18 05:17 IMPRESSION: No acute findings. Hip X-Ray 08/09/18 05:17 IMPRESSION: No acute findings. Assessment & Plan - Diagnosis (1) Syncope Is this a current diagnosis for this admission?: Yes Plan: 08/10/2018 patient was admitted with syncope most likely secondary to severe hypotension. CT head was negative for acute changes. Fall precautions are requested. Physical therapy consult was requested. Pressure is improved to 125/64. Presently she is an IV normal saline at 75 cc/h. (2) UTI (urinary tract infection) Is this a current diagnosis for this admission?: Yes Plan: 08/10/2018 urine culture came back positive for gram-negative rods patient is presently on IV vancomycin and cefepime. Plan is to continue the present management. Sepsis may be secondary to urinary tract infection. (3) Septic shock Is this a current diagnosis for this admission?: Yes Plan: 08/10/2018 patient came in with UTI and severe hypotension hypotension is improved with IV fluids. Lactic acid level was requested today. Urine culture is positive for gram-negative rods presently on IV cefepime and IV vancomycin will continue the present management. (4) Hypokalemia Is this a current diagnosis for this admission?: Yes Plan: 08/10/2018 patient potassium level is 3.2 started on potassium 20 mg p.o. twice daily. Plan is to continue the present management check the labs tomorrow. (5) Lung cancer Is this a current diagnosis for this admission?: Yes Plan: 08/10/2018-patient has history of lung cancer with metastasis to the brain she has craniotomy done CT head was negative for metastasis and patient received chemotherapy last Friday. Consultation with Dr. Orr was requested. - Time Time Spent with patient: 15-24 minutes Medications reviewed and adjusted accordingly: Yes Anticipated discharge: Home
[2018-08-10] MEDS: OXYCODONE-ACETAMINOPHEN 5-325 MG TABLET PO PRN (11:52)
[2018-08-10] MEDS: MAGNESIUM SULFATE/D5W 1 GM/100 ML RTUPB IV SCH ×2 (11:53→14:39)
[2018-08-10] MEDS: GABAPENTIN 300 MG CAPSULE PO SCH ×2 (13:14→23:19)
[2018-08-10] MEDS: ONDANSETRON 4 MG TAB.RAPDIS PO PRN (13:14)
[2018-08-10] MEDS ORDERED: (PENDING PHARMACY ID) (Buspirone Hcl [Buspar 5 Mg Tablet] 5 MG) PO SCH (14:00)
[2018-08-10] MEDS ORDERED: DEXAMETHASONE 2 MG PO SCH (22:00)
[2018-08-10] MEDS ORDERED: (PENDING PHARMACY ID) (Levetiracetam [Keppra] 750 MG) PO SCH (22:00)
[2018-08-10] MEDS: BUSPIRONE HCL 10 MG TABLET PO SCH (23:18)
[2018-08-10] MEDS: POTASSIUM CHLORIDE 10 MEQ CAPSULE.ER PO SCH (23:19)
[2018-08-10] MEDS: INSULIN GLARGINE,HUM.REC.ANLOG 300 UNIT/3 ML INSULN.PEN SUBCUT SCH (23:19)
[2018-08-10] MEDS: LEVETIRACETAM ORAL SOLN 500 MG/5 ML UDCUP PO SCH (23:20)
[2018-08-10] MEDS: DEXAMETHASONE 4 MG TABLET PO SCH (23:21)
[2018-08-11] MEDS: BUSPIRONE HCL 10 MG TABLET PO SCH ×3 (05:06→22:34)
[2018-08-11] MEDS: GABAPENTIN 300 MG CAPSULE PO SCH ×3 (05:06→22:35)
[2018-08-11] MEDS: OXYCODONE-ACETAMINOPHEN 5-325 MG TABLET PO PRN ×2 (05:13→20:02)
[2018-08-11 05:28] LABS: HEMATOCRIT 23.6 % (36.0-47.0); HEMOGLOBIN 8.2 g/dL (12.0-15.5); MEAN CORPUSCULAR HEMOGLOBIN 32.3 pg (27.0-33.4); MEAN CORPUSCULAR VOLUME 92 fl (80-97); RED BLOOD COUNT 2.55 10^6/uL (3.72-5.28); RED CELL DISTRIBUTION WIDTH 16.6 % (11.5-14.0); WHITE BLOOD COUNT 7.8 10^3/uL (4.0-10.5)
[2018-08-11 05:32] LABS: PLATELET COUNT 68 10^3/uL (150-450)
[2018-08-11 05:57] LABS: ALANINE AMINOTRANSFERASE 44 U/L (9-52); ALBUMIN 2.8 g/dL (3.5-5.0); ALKALINE PHOSPHATASE 86 U/L (38-126); ANION GAP 5 (5-19); ASPARTATE AMINO TRANSFERASE 21 U/L (14-36); BILIRUBIN,DIRECT 0.1 mg/dL (0.0-0.4); BILIRUBIN,TOTAL 0.4 mg/dL (0.2-1.3); BLOOD UREA NITROGEN 14 mg/dL (7-20); CALCIUM 8.2 mg/dL (8.4-10.2); CARBON DIOXIDE 21 mmol/L (22-30); CHLORIDE 113 mmol/L (98-107); GLUCOSE 272 mg/dL (75-110); POTASSIUM 4.1 mmol/L (3.6-5.0); SODIUM 138.5 mmol/L (137-145); TOTAL PROTEIN 5.1 g/dL (6.3-8.2)
[2018-08-11 06:13] LABS: ABSOLUTE LYMPHOCYTES# (MANUAL) 0.9 10^3/uL (0.5-4.7); ABSOLUTE NEUTROPHILS# (MANUAL) 6.9 10^3/uL (1.7-8.2); BASOPHILS % (MANUAL) 0 % (0-2); EOSINOPHILS % (MANUAL) 0 % (0-6); LYMPHOCYTES % (MANUAL) 10 % (13-45); MONOCYTES % (MANUAL) 0 % (3-13); SEGMENTED NEUTROPHILS % (MAN) 89 % (42-78); TOTAL CELLS COUNTED 100
[2018-08-11 06:18] LABS: TOXIC GRANULATION SLIGHT; TOXIC VACUOLATION PRESENT
[2018-08-11 06:20] LABS: ANISOCYTOSIS 1+; OVALOCYTES 1+; PLATELET COMMENT DECREASED; POIKILOCYTOSIS 2+; TEAR DROP CELLS 1+
[2018-08-11] MEDS: INSULIN LISPRO 100 UNIT/ML 3 ML VIAL SUBCUT SCH ×7 (09:13→22:36)
--- NOTE | 2018-08-11 09:23 | PDOC CONSULTATION ---
Consultation Consult Date: 08/11/18 Consult reason:: Hematology/Oncology consultation was requested for patient with known lung cancer on active chemotherapy. History of Present Illness Admission Date/PCP: 08/09/18 11:32 History of Present Illness: DIEUDONNE FONSECA is a 57 year old female who is followed by Dr. Hester in [place] for small cell lung cancer. She was diagnosed several months ago, when she was found to have brain metastases. She underwent craniotomy as well as whole brain radiation therapy which completed in Apr. She just received her 4th cycle of carboplatin/etoposide beginning 08/05/2018. She also received neulasta following the chemo. According to Dr. Hester, she was having some headaches prior to this cycle. However, recent scans did not show any progression in her brain. Patient states that she got up to use the bathroom and then does not remember anything else. She was brought to the ED after falling and hitting her head. CT without contrast in the ED did not show any new pathology. This morning, patient states that her head hurts and pain meds help some, but she is still very sore. She is feeling a little stronger. She is asking for her breakfast. Past Medical History Cardiac Medical History: Reports: Hypertension Pulmonary Medical History: Reports: Asthma, Chronic Obstructive Pulmonary Disease (COPD) Endocrine Medical History: Reports: Diabetes Mellitus Type 2 Malignancy Medical History: Reports: Brain Cancer, Lung Cancer - Small cell, stage IV likely Musculoskeltal Medical History: Reports: Arthritis Psychiatric Medical History: Reports: Depression Past Surgical History Past Surgical History: Reports: Cardiac Catheterization - 7 stents, Cholecystectomy, Orthopedic Surgery, Other - Craniotomy for brain mets. Social History Lives with: Family Smoking Status: Current Every Day Smoker Cigarettes Packs Per Day: 0.5 Frequency of Alcohol Use: None Hx Recreational Drug Use: No Drugs: None Past Social History Note: She has 3 older children, and a 2 year old adopted child. Family History Parental Family History Reviewed: Yes - Father of liver cirrhosis Children Family History Reviewed: No Sibling(s) Family History Reviewed.: Yes - Brother of pancreatic cancer Medication/Allergy Home Medications: Acetaminophen [Non-Aspirin Pain Relief] 500 mg PO Q4HP PRN 08/09/18 Aprepitant [Cinvanti] 18 ml IV [id number] 08/09/18 Buspirone HCl [Buspar 5 mg Tablet] 5 mg PO Q8 08/09/18 Calcium Carbonate [Tums Chewable 500 mg Tab.chew] 500 mg PO TIDP PRN 08/09/18 Dexamethasone 2 mg PO Q12 08/09/18 Famotidine [Acid Controller] 20 mg PO Q12 08/09/18 Gabapentin [Neurontin 300 mg Capsule] 300 mg PO Q8 08/09/18 Insulin Glargine,Hum.rec.anlog [Lantus Insulin 100 Unit/mL] 38 unit SQ QHS 08/09/18 Insulin Lispro [Humalog Insulin (Lispro) 100 unit/mL] 30 unit SQ AC 08/09/18 Levetiracetam [Keppra] 750 mg PO Q12 08/09/18 Magnesium Oxide [Mag-Ox 400 mg Tablet] 400 mg PO DAILY 08/09/18 Melatonin [Melatonin 3 mg Tablet] 3 mg PO HSP PRN 08/09/18 Metformin HCl 500 mg PO Q12 08/09/18 Ondansetron [Zofran Odt 4 mg Tablet] 8 mg PO Q8HP PRN 08/09/18 Pantoprazole Sodium [Protonix [address] Tablet] 40 mg PO Q12 08/09/18 Paroxetine HCl [Paxil] 40 mg PO DAILY 08/09/18 Polyethylene Glycol 3350 [Miralax Powder 17 gm/Packet] 17 gm PO DAILY 08/09/18 Prasugrel HCl [Effient 10 mg Tablet] 10 mg PO DAILY 08/09/18 Prochlorperazine Maleate [Compazine 10 mg Tablet] 10 mg PO Q6HP PRN 08/09/18 Allergies/Adverse Reactions: No Known Allergies Allergy (Unverified 03/21/18 22:39) Review of Systems Constitutional: PRESENT: headache(s) Eyes: ABSENT: visual disturbances Ears: ABSENT: hearing changes Nose, Mouth, and Throat: ABSENT: sore throat Cardiovascular: ABSENT: chest pain Respiratory: ABSENT: dyspnea Gastrointestinal: PRESENT: constipation Genitourinary: ABSENT: dysuria Integumentary: ABSENT: pruritus Neurological: PRESENT: syncope, weakness Physical Exam Vital Signs: Temp Pulse Resp BP Pulse Ox 98.1 F 73 16 100/52 L 100 08/11/18 03:21 08/11/18 07:00 08/11/18 03:21 08/11/18 03:21 08/11/18 03:21 Intake & Output 08/10/18 08/11/18 08/12/18 06:59 06:59 06:59 Intake Total 3500 2173 Output Total 300 Balance 3200 2173 Weight 77.9 kg 79.6 kg General appearance: PRESENT: well-developed, well-nourished Head exam: PRESENT: normocephalic Mouth exam: PRESENT: tongue midline, other - White tongue. Neck exam: ABSENT: lymphadenopathy, tenderness Respiratory exam: PRESENT: clear to auscultation lorna, unlabored Cardiovascular exam: PRESENT: RRR. ABSENT: systolic murmur GI/Abdominal exam: PRESENT: soft. ABSENT: organolmegaly, tenderness Extremities exam: ABSENT: pedal edema Musculoskeletal exam: PRESENT: normal inspection Neurological exam: PRESENT: alert, awake Psychiatric exam: PRESENT: appropriate affect Focused psych exam: ABSENT: restlessness Skin exam: PRESENT: normal color Results Laboratory Results: 08/11/18 05:00 08/11/18 05:00 08/10/18 08/11/18 08/11/18 14:30 05:00 05:00 WBC 7.8 RBC 2.55 L Hgb 8.2 L Hct 23.6 L MCV 92 MCH 32.3 MCHC 35.0 RDW 16.6 H Plt Count 68 L Seg Neutrophils % Not Reportable Lymphocytes % Not Reportable Monocytes % Not Reportable Eosinophils % Not Reportable Basophils % Not Reportable Absolute Neutrophils Not Reportable Absolute Lymphocytes Not Reportable Absolute Monocytes Not Reportable Absolute Eosinophils Not Reportable Absolute Basophils Not Reportable Sodium 138.5 Potassium 4.1 Chloride 113 H Carbon Dioxide 21 L Anion Gap 5 BUN 14 Creatinine 0.55 Est GFR ( Amer) > 60 Est GFR (Non-Af Amer) > 60 Glucose 272 H Lactic Acid 0.8 Calcium 8.2 L Magnesium 1.8 Total Bilirubin 0.4 AST 21 ALT 44 Alkaline Phosphatase 86 Total Protein 5.1 L Albumin 2.8 L 08/09/18 08:20 Clean Catch Midstream Urine Culture - Final Escherichia Coli 08/09/18 05:34 Troponin I < 0.012 Impressions: Cervical Spine CT 08/09/18 05:17 IMPRESSION: No acute findings. Chest X-Ray 08/09/18 05:17 IMPRESSION: No acute cardiopulmonary findings. Head CT 08/09/18 05:17 IMPRESSION: No acute findings. Hip X-Ray 08/09/18 05:17 IMPRESSION: No acute findings. Status: Image reviewed by me Assessment & Plan - Diagnosis (1) Lung cancer Is this a current diagnosis for this admission?: Yes Plan: Today is Day 6 of cycle #4 Carboplatin/etoposide. No further treatment is planned at present. She will return to Dr. Hester ([place]) for further follow-up and repeat scans after hospitalization. (2) Syncope Is this a current diagnosis for this admission?: Yes Plan: with head trauma. Patient was complaining of some headache prior to the fall. CT scans in ED did not show any new pathology. She is receiving percocet for this. Consider increasing this dose a bit, as she appears to be tolerating it. However, with the falls, this is also a concern. I see no indication to increase her steroids. I would continue Dexamethasone 2 mg BID for now. (3) Leukocytosis Is this a current diagnosis for this admission?: Yes Plan: This is due to the neulasta injection she had after chemo. Her WBC, as expected, are now decreasing after chemo. Will watch closely for evidence of neutropenia. (4) Thrombocytopenia Is this a current diagnosis for this admission?: Yes Plan: Due to chemotherapy. This should resolve within the next 5-7 days. Would hold any anticoagulation if PLT <50, otherwise, just watch for bleeding. - Plan Summary Plan Summary: Patient was discussed with Dr. Hester in [place] ([phone]). Please call me with any questions or concerns.
[2018-08-11] MEDS: DEXAMETHASONE 4 MG TABLET PO SCH ×2 (10:03→22:36)
[2018-08-11] MEDS: POTASSIUM CHLORIDE 10 MEQ CAPSULE.ER PO SCH ×2 (10:04→22:34)
[2018-08-11] MEDS: PAROXETINE HCL 20 MG TABLET PO SCH (10:04)
[2018-08-11] MEDS: LEVETIRACETAM ORAL SOLN 500 MG/5 ML UDCUP PO SCH ×2 (10:05→22:35)
[2018-08-11] MEDS: MAGNESIUM OXIDE 400 MG TABLET PO SCH (10:05)
[2018-08-11] MEDS: ENOXAPARIN SODIUM INJ 40 MG/0.4 ML DISP.SYRIN SUBCUT SCH (10:05)
[2018-08-11] MEDS: CIPROFLOXACIN 400 MG/D5W RTU 400 MG/200 ML RTUPB IV SCH ×2 (10:06→22:36)
[2018-08-11] MEDS: PRASUGREL HCL 10 MG TABLET PO SCH (10:07)
[2018-08-11] MEDS: POLYETHYLENE GLYCOL 3350 POWDER 17 GM/1 PACKET PO SCH (10:07)
[2018-08-11] MEDS: NORMAL SALINE 1000 ML 1,000 ML IV PRN (13:20)
--- NOTE | 2018-08-11 21:24 | PDOC PROGRESS REPORT ---
Subjective Progress Note for:: 08/11/18 Subjective:: 57-year-old female with history of lung cancer, on chemotherapy (last dose Monday 08/07). History of craniotomy for metastatic brain disease. Presented to [facility] after history of falls, CT head was negative for acute changes. Urinalysis (+) positive for UTI. C&S resulted today, urine growing e.coli. Patient was seen this morning on rounds. She is resting comfortably in bed. She has no complaints at this time, denies urinary urgency/frequency. Nursing staff has no concerns. Plan to downgrade antibiotics from cefepime to ciprofloxacin. If patient is able to tolerate, can likely d/c home tomorrow. Reason For Visit: HYPOTENSION,SYNCOPE Physical Exam Vital Signs: Temp Pulse Resp BP Pulse Ox 97.6 F 86 16 120/59 L 100 08/11/18 20:17 08/11/18 20:17 08/11/18 20:17 08/11/18 20:17 08/11/18 20:17 Intake & Output 08/10/18 08/11/18 08/12/18 06:59 06:59 06:59 Intake Total 3500 2173 2225 Output Total 300 Balance 3200 2173 2225 Weight 77.9 kg 79.6 kg General appearance: PRESENT: morbidly obese Eye exam: PRESENT: conjunctiva pink, PERRLA Mouth exam: PRESENT: moist, tongue midline Teeth exam: PRESENT: poor dentation Neck exam: PRESENT: full ROM Respiratory exam: PRESENT: clear to auscultation lorna, symmetrical, unlabored Cardiovascular exam: PRESENT: RRR Pulses: PRESENT: normal radial pulses, normal dorsalis pedis pul Vascular exam: PRESENT: pallor GI/Abdominal exam: PRESENT: soft. ABSENT: distended, tenderness Rectal exam: PRESENT: deferred Extremities exam: PRESENT: full ROM Musculoskeletal exam: PRESENT: ambulatory, full ROM, normal inspection Neurological exam: PRESENT: alert, awake, oriented to person, oriented to place, oriented to time, oriented to situation Psychiatric exam: PRESENT: appropriate affect Skin exam: PRESENT: dry, intact, pallor Results Laboratory Results: 08/11/18 05:00 08/11/18 05:00 08/11/18 08/11/18 05:00 05:00 WBC 7.8 RBC 2.55 L Hgb 8.2 L Hct 23.6 L MCV 92 MCH 32.3 MCHC 35.0 RDW 16.6 H Plt Count 68 L Seg Neutrophils % Not Reportable Lymphocytes % Not Reportable Monocytes % Not Reportable Eosinophils % Not Reportable Basophils % Not Reportable Absolute Neutrophils Not Reportable Absolute Lymphocytes Not Reportable Absolute Monocytes Not Reportable Absolute Eosinophils Not Reportable Absolute Basophils Not Reportable Sodium 138.5 Potassium 4.1 Chloride 113 H Carbon Dioxide 21 L Anion Gap 5 BUN 14 Creatinine 0.55 Est GFR ( Amer) > 60 Est GFR (Non-Af Amer) > 60 Glucose 272 H Calcium 8.2 L Magnesium 1.8 Total Bilirubin 0.4 AST 21 ALT 44 Alkaline Phosphatase 86 Total Protein 5.1 L Albumin 2.8 L 08/09/18 08:20 Clean Catch Midstream Urine Culture - Final Escherichia Coli 08/09/18 05:34 Troponin I < 0.012 Impressions: Cervical Spine CT 08/09/18 05:17 IMPRESSION: No acute findings. Chest X-Ray 08/09/18 05:17 IMPRESSION: No acute cardiopulmonary findings. Head CT 08/09/18 05:17 IMPRESSION: No acute findings. Hip X-Ray 08/09/18 05:17 IMPRESSION: No acute findings. Status: Imported from PACS Assessment and Plan - Diagnosis (1) Septic shock Is this a current diagnosis for this admission?: Yes Plan: Resolved (2) Lung cancer Is this a current diagnosis for this admission?: Yes Plan: Management per Dr. Au (3) Hypokalemia Is this a current diagnosis for this admission?: Yes Plan: Resolved (4) Syncope Is this a current diagnosis for this admission?: Yes Plan: Patient was admitted with syncope most likely secondary to severe hypotension. CT head was negative for acute changes. Fall precautions are requested. PT/OT consult - will likely need home PT and bedside commode dehydration treated with IVF, hypotension has since resolved (5) UTI (urinary tract infection) Is this a current diagnosis for this admission?: Yes Plan: UA (+) for UTI Urine culture (+) e.coli able to downgrade antibiotics today d/c cefepime initiate ciprofloxacin - Time Time Spent with patient: 15-24 minutes Medications reviewed and adjusted accordingly: Yes Anticipated discharge: Home Within: within 24 hours - Inpatient Certification Based on my medical assessment, after consideration of the patient's comorbidities, presenting symptoms, or acuity I expect that the services needed warrant INPATIENT care.: Yes I certify that my determination is in accordance with my understanding of Medicare's requirements for reasonable and necessary INPATIENT services [42 CFR 412.3e].: Yes Medical Necessity: Need for IV Antibiotics
[2018-08-11] MEDS: INSULIN GLARGINE,HUM.REC.ANLOG 300 UNIT/3 ML INSULN.PEN SUBCUT SCH (22:37)
[2018-08-12] MEDS: NORMAL SALINE 1000 ML 1,000 ML IV PRN (05:04)
[2018-08-12] MEDS: GABAPENTIN 300 MG CAPSULE PO SCH ×2 (05:05→15:09)
[2018-08-12] MEDS: BUSPIRONE HCL 10 MG TABLET PO SCH ×2 (05:05→15:10)
[2018-08-12 05:43] LABS: HEMATOCRIT 22.4 % (36.0-47.0); MEAN CORPUSCULAR HEMOGLOBIN 31.9 pg (27.0-33.4); MEAN CORPUSCULAR HGB CONC 34.4 g/dL (32.0-36.0); MEAN CORPUSCULAR VOLUME 93 fl (80-97); RED BLOOD COUNT 2.42 10^6/uL (3.72-5.28); RED CELL DISTRIBUTION WIDTH 17.8 % (11.5-14.0)
[2018-08-12 05:54] LABS: ALANINE AMINOTRANSFERASE 35 U/L (9-52); ALBUMIN 3.2 g/dL (3.5-5.0); ALKALINE PHOSPHATASE 81 U/L (38-126); ANION GAP 7 (5-19); ASPARTATE AMINO TRANSFERASE 18 U/L (14-36); BILIRUBIN,DIRECT 0.2 mg/dL (0.0-0.4); BILIRUBIN,TOTAL 0.6 mg/dL (0.2-1.3); BLOOD UREA NITROGEN 18 mg/dL (7-20); CARBON DIOXIDE 26 mmol/L (22-30); CHLORIDE 106 mmol/L (98-107); GLUCOSE 288 mg/dL (75-110); POTASSIUM 4.2 mmol/L (3.6-5.0); SODIUM 138.8 mmol/L (137-145); TOTAL PROTEIN 5.5 g/dL (6.3-8.2)
[2018-08-12 06:20] LABS: HEMOGLOBIN 7.7 g/dL (12.0-15.5); WHITE BLOOD COUNT 2.4 10^3/uL (4.0-10.5)
[2018-08-12 06:34] LABS: PLATELET COUNT 48 10^3/uL (150-450)
[2018-08-12] MEDS: INSULIN LISPRO 100 UNIT/ML 3 ML VIAL SUBCUT SCH ×6 (08:03→16:43)
--- NOTE | 2018-08-12 08:26 | PDOC PROGRESS REPORT ---
Subjective Progress Note for:: 08/12/18 Subjective:: Patient seems better today Reason For Visit: HYPOTENSION,SYNCOPE Physical Exam Vital Signs: Temp Pulse Resp BP Pulse Ox 97.3 F 80 16 135/82 H 99 08/12/18 03:56 08/12/18 07:00 08/12/18 03:56 08/12/18 03:56 08/12/18 03:56 Intake & Output 08/11/18 08/12/18 08/13/18 06:59 06:59 06:59 Intake Total 2173 3905 Balance 2173 3905 Weight 79.6 kg 79.6 kg General appearance: PRESENT: no acute distress, well-developed, well-nourished Head exam: PRESENT: atraumatic, normocephalic Eye exam: PRESENT: conjunctiva pink, EOMI, PERRLA. ABSENT: scleral icterus Ear exam: PRESENT: normal external ear exam Mouth exam: PRESENT: moist, tongue midline Neck exam: ABSENT: carotid bruit, JVD, lymphadenopathy, thyromegaly Respiratory exam: PRESENT: clear to auscultation lorna. ABSENT: rales, rhonchi, wheezes Cardiovascular exam: PRESENT: RRR. ABSENT: diastolic murmur, rubs, systolic murmur Pulses: PRESENT: normal dorsalis pedis pul Vascular exam: PRESENT: normal capillary refill GI/Abdominal exam: PRESENT: normal bowel sounds, soft. ABSENT: distended, guarding, mass, organolmegaly, rebound, tenderness Rectal exam: PRESENT: deferred Extremities exam: PRESENT: full ROM. ABSENT: calf tenderness, clubbing, pedal edema Neurological exam: PRESENT: alert, awake, oriented to person, oriented to place, oriented to time, oriented to situation, CN II-XII grossly intact. ABSENT: motor sensory deficit Psychiatric exam: PRESENT: appropriate affect, normal mood. ABSENT: homicidal ideation, suicidal ideation Skin exam: PRESENT: dry, intact, warm. ABSENT: cyanosis, rash Results Laboratory Results: 08/12/18 05:00 08/12/18 05:00 08/12/18 08/12/18 08/12/18 05:00 05:00 06:50 WBC 2.4 L D RBC 2.42 L Hgb 7.7 L Hct 22.4 L MCV 93 MCH 31.9 MCHC 34.4 RDW 17.8 H Plt Count 48 L Sodium 138.8 Potassium 4.2 Chloride 106 Carbon Dioxide 26 Anion Gap 7 BUN 18 Creatinine 0.62 Est GFR ( Amer) > 60 Est GFR (Non-Af Amer) > 60 Glucose 288 H Calcium 9.0 Magnesium 1.5 L Total Bilirubin 0.6 AST 18 ALT 35 Alkaline Phosphatase 81 Total Protein 5.5 L Albumin 3.2 L Blood Type A POSITIVE Antibody Screen NEGATIVE 08/09/18 08:20 Clean Catch Midstream Urine Culture - Final Escherichia Coli 08/09/18 05:34 Troponin I < 0.012 Impressions: Cervical Spine CT 08/09/18 05:17 IMPRESSION: No acute findings. Chest X-Ray 08/09/18 05:17 IMPRESSION: No acute cardiopulmonary findings. Head CT 08/09/18 05:17 IMPRESSION: No acute findings. Hip X-Ray 08/09/18 05:17 IMPRESSION: No acute findings. Assessment & Plan - Diagnosis (1) UTI (urinary tract infection) Qualifiers: Urinary tract infection type: acute cystitis Hematuria presence: without hematuria Qualified Code(s): N30.00 - Acute cystitis without hematuria Is this a current diagnosis for this admission?: Yes Plan: E. coli UTI, on appropriate antibiotic, will follow (2) Lung cancer Qualifiers: Laterality: right Lung location: middle lobe of lung Qualified Code(s): C34.2 - Malignant neoplasm of middle lobe, bronchus or lung Is this a current diagnosis for this admission?: Yes Plan: Small cell lung cancer being followed by Dr. Hester in [facility]. We did offer our services here as well. Sounds like she got possibly her fourth cycle of chemotherapy. She probably will have restaging imaging after the cycle through her oncologist. (3) Anemia associated with chemotherapy Is this a current diagnosis for this admission?: Yes Plan: Chemotherapy-induced anemia, agree with transfusion - Time Time Spent with patient: 35 or more minutes - Inpatient Certification Based on my medical assessment, after consideration of the patient's comorbidities, presenting symptoms, or acuity I expect that the services needed warrant INPATIENT care.: Yes I certify that my determination is in accordance with my understanding of Medicare's requirements for reasonable and necessary INPATIENT services [42 CFR 412.3e].: Yes Medical Necessity: Need for IV Antibiotics, Risk of Complication if Not Cared For in Hospital
[2018-08-12] MEDS: ONDANSETRON 4 MG TAB.RAPDIS PO PRN (09:46)
[2018-08-12] MEDS: POTASSIUM CHLORIDE 10 MEQ CAPSULE.ER PO SCH (09:47)
[2018-08-12] MEDS: MAGNESIUM OXIDE 400 MG TABLET PO SCH (09:48)
[2018-08-12] MEDS: PAROXETINE HCL 20 MG TABLET PO SCH (09:48)
[2018-08-12] MEDS: DEXAMETHASONE 4 MG TABLET PO SCH (09:48)
[2018-08-12] MEDS: LEVETIRACETAM ORAL SOLN 500 MG/5 ML UDCUP PO SCH (09:49)
[2018-08-12] MEDS: PRASUGREL HCL 10 MG TABLET PO SCH (09:49)
[2018-08-12] MEDS: ENOXAPARIN SODIUM INJ 40 MG/0.4 ML DISP.SYRIN SUBCUT SCH (09:50)
[2018-08-12] MEDS: POLYETHYLENE GLYCOL 3350 POWDER 17 GM/1 PACKET PO SCH (09:50)
[2018-08-12] MEDS ORDERED: CIPROFLOXACIN 400 MG/D5W RTU 400 MG/200 ML RTUPB IV SCH (12:00)
[2018-08-12 15:23] LABS: HEMATOCRIT 27.3 % (36.0-47.0); HEMOGLOBIN 9.6 g/dL (12.0-15.5); MEAN CORPUSCULAR HEMOGLOBIN 32.2 pg (27.0-33.4); MEAN CORPUSCULAR HGB CONC 35.3 g/dL (32.0-36.0); MEAN CORPUSCULAR VOLUME 91 fl (80-97); RED CELL DISTRIBUTION WIDTH 15.8 % (11.5-14.0)
[2018-08-12 15:33] LABS: ALANINE AMINOTRANSFERASE 30 U/L (9-52); ALBUMIN 2.8 g/dL (3.5-5.0); ALKALINE PHOSPHATASE 65 U/L (38-126); ANION GAP 8 (5-19); ASPARTATE AMINO TRANSFERASE 16 U/L (14-36); BILIRUBIN,DIRECT 0.3 mg/dL (0.0-0.4); BILIRUBIN,TOTAL 1.1 mg/dL (0.2-1.3); BLOOD UREA NITROGEN 15 mg/dL (7-20); CALCIUM 8.1 mg/dL (8.4-10.2); CARBON DIOXIDE 20 mmol/L (22-30); CHLORIDE 111 mmol/L (98-107); GLUCOSE 169 mg/dL (75-110); POTASSIUM 3.9 mmol/L (3.6-5.0); SODIUM 138.6 mmol/L (137-145); TOTAL PROTEIN 5.1 g/dL (6.3-8.2)
[2018-08-12 15:45] LABS: PLATELET COUNT 48 10^3/uL (150-450); WHITE BLOOD COUNT 1.8 10^3/uL (4.0-10.5)
[2018-08-12 15:48] LABS: ABSOLUTE LYMPHOCYTES# (MANUAL) 0.4 10^3/uL (0.5-4.7); ABSOLUTE NEUTROPHILS# (MANUAL) 1.4 10^3/uL (1.7-8.2); BASOPHILS % (MANUAL) 0 % (0-2); EOSINOPHILS % (MANUAL) 0 % (0-6); LYMPHOCYTES % (MANUAL) 20 % (13-45); MONOCYTES % (MANUAL) 0 % (3-13); SEGMENTED NEUTROPHILS % (MAN) 78 % (42-78); TOTAL CELLS COUNTED 50
[2018-08-12 15:50] LABS: ANISOCYTOSIS SLIGHT; BURR CELLS SLIGHT; OVALOCYTES SLIGHT; PLATELET COMMENT DECREASED; POIKILOCYTOSIS SLIGHT
[2018-08-12 17:39] VITALS: BP 145/60
--- NOTE | 2018-08-24 10:03 | PDOC DISCHARGE SUMMARY ---
General - Admit/Disc Date/PCP Admission Date/Primary Care Provider: 08/09/18 11:32 Discharge Date: 08/12/18 - Discharge Diagnosis (1) Septic shock Is this a current diagnosis for this admission?: Yes (2) Lung cancer Is this a current diagnosis for this admission?: Yes (3) Hypokalemia Is this a current diagnosis for this admission?: Yes (4) Syncope Is this a current diagnosis for this admission?: Yes (5) UTI (urinary tract infection) Is this a current diagnosis for this admission?: Yes - Additional Information Discharge Diet: As Tolerated Discharge Activity: Activity As Tolerated Prescriptions: Ciprofloxacin HCl [Cipro 500 mg Tablet] 500 mg PO DAILY #3 tablet Home Medications: Acetaminophen [Non-Aspirin Pain Relief] 500 mg PO Q4HP PRN 08/09/18 Aprepitant [Cinvanti] 18 ml IV [id number] 08/09/18 Buspirone HCl [Buspar 5 mg Tablet] 5 mg PO Q8 08/09/18 Calcium Carbonate [Tums Chewable 500 mg Tab.chew] 500 mg PO TIDP PRN 08/09/18 Dexamethasone 2 mg PO Q12 08/09/18 Famotidine [Acid Controller] 20 mg PO Q12 08/09/18 Gabapentin [Neurontin 300 mg Capsule] 300 mg PO Q8 08/09/18 Insulin Glargine,Hum.rec.anlog [Lantus Insulin 100 Unit/mL] 38 unit SQ QHS 08/09/18 Insulin Lispro [Humalog Insulin (Lispro) 100 unit/mL] 30 unit SQ AC 08/09/18 Levetiracetam [Keppra] 750 mg PO Q12 08/09/18 Magnesium Oxide [Mag-Ox 400 mg Tablet] 400 mg PO DAILY 08/09/18 Melatonin [Melatonin 3 mg Tablet] 3 mg PO HSP PRN 08/09/18 Metformin HCl 500 mg PO Q12 08/09/18 Ondansetron [Zofran Odt 4 mg Tablet] 8 mg PO Q8HP PRN 08/09/18 Pantoprazole Sodium [Protonix [address] Tablet] 40 mg PO Q12 08/09/18 Paroxetine HCl [Paxil] 40 mg PO DAILY 08/09/18 Polyethylene Glycol 3350 [Miralax Powder 17 gm/Packet] 17 gm PO DAILY 08/09/18 Prasugrel HCl [Effient 10 mg Tablet] 10 mg PO DAILY 08/09/18 Prochlorperazine Maleate [Compazine 10 mg Tablet] 10 mg PO Q6HP PRN 08/09/18 Ciprofloxacin HCl [Cipro 500 mg Tablet] 500 mg PO DAILY #3 tablet 08/12/18 History of Present Illness History of Present Illness: See H&P dictation from 08/09/2018 Hospital Course Hospital Course: 57-year-old female with history of lung cancer, on chemotherapy (last dose 08/07). History of craniotomy for metastatic brain disease. Presented to [facility] after history of falls, CT head was negative for acute changes. Syncope most likely secondary to hypotension stemming from dehydration and/or narcotic use. Dehydration was treated with IVF. Urinalysis (+) positive for UTI. The patient was started on cefepime. C&S resulted, urine growing e.coli, sensitive to ciprofloxacin. Antibiotics were downgraded. While inpatient, the patient was seen by PT/OT, who recommended homehealth with PT and a bedside commode. On hospital day #3 the patient was deemed safe for discharge. She was sent home with a prescription for ciprofloxacin to complete antibiotic treatment of her [place] I. Physical Exam Vital Signs: Temp Pulse Resp BP Pulse Ox 97.5 F 72 20 145/60 H 100 08/12/18 16:00 08/12/18 16:00 08/12/18 16:00 08/12/18 16:00 08/12/18 16:00 Results Laboratory Results: 08/12/18 15:00 08/12/18 15:00 08/09/18 05:34 Troponin I < 0.012 Impressions: Cervical Spine CT 08/09/18 05:17 IMPRESSION: No acute findings. Chest X-Ray 08/09/18 05:17 IMPRESSION: No acute cardiopulmonary findings. Head CT 08/09/18 05:17 IMPRESSION: No acute findings. Hip X-Ray 08/09/18 05:17 IMPRESSION: No acute findings. Qualifiers - * PATIENT BEING DISCHARGED WITH ANY OF THE FOLLOWING DIAGNOSIS: No
== END 2018-08-12 17:20 | disposition home health service (06) | DRG 871 ==
LOC: ER 05:07 → EH 11:32 → 3N 13:58
PROVIDERS: ADMIT Internal Medicine; ATTEND Internal Medicine
PROC: 3E0F73Z Introduction of Anti-inflammatory into Respiratory Tract, Via Natural or Artificial Opening (ICD-10-PCS; 2018-08-09)
PROC: 30233N1 Transfusion of Nonautologous Red Blood Cells into Peripheral Vein, Percutaneous Approach (ICD-10-PCS; principal; 2018-08-12)
DX: A41.9 Sepsis, unspecified organism (principal); R65.21 Severe sepsis with septic shock; C79.31 Secondary malignant neoplasm of brain; N30.00 Acute cystitis without hematuria; C34.2 Malignant neoplasm of middle lobe, bronchus or lung; N39.0 Urinary tract infection, site not specified; B96.20 Unspecified Escherichia coli [E. coli] as the cause of diseases classified elsewhere; I10 Essential (primary) hypertension; J44.9 Chronic obstructive pulmonary disease, unspecified; E11.9 Type 2 diabetes mellitus without complications; M19.90 Unspecified osteoarthritis, unspecified site; F32.9 Major depressive disorder, single episode, unspecified; K59.00 Constipation, unspecified; D69.6 Thrombocytopenia, unspecified; I25.10 Atherosclerotic heart disease of native coronary artery without angina pectoris; E86.0 Dehydration; E87.6 Hypokalemia; E66.01 Morbid (severe) obesity due to excess calories; D64.81 Anemia due to antineoplastic chemotherapy; W19.XXXA Unspecified fall, initial encounter; E83.42 Hypomagnesemia; I95.1 Orthostatic hypotension; I44.0 Atrioventricular block, first degree; Z92.3 Personal history of irradiation; Z95.5 Presence of coronary angioplasty implant and graft; Z90.49 Acquired absence of other specified parts of digestive tract; Z79.82 Long term (current) use of aspirin; Z79.4 Long term (current) use of insulin; Z87.891 Personal history of nicotine dependence; Z84.89 Family history of other specified conditions; Z80.0 Family history of malignant neoplasm of digestive organs; Z79.899 Other long term (current) drug therapy
CPT/HCPCS: 36415; 36430; 70450; 71045; 72125; 73522; 80048; 80053; 80307; 81001; 82962; 83605; 83735; 84484; 85025; 85027; 86850; 86900; 86901; 86920; 87040; 87086; 87088; 87186; 93005; 93010; 96361; 96365; 96367; 99285; J0692; J0696; J0744; J1642; J1650; J1815; J3370; J3475; J3490; J7030; J7060; J7620; L0172; P9016; S0119

== ENCOUNTER 2018-08-18 19:28 | Emergency (ER) | payer MEDICAID ==
--- NOTE | 2018-08-18 19:49 | RADIOLOGY REPORT (SQ) ---
EXAM DESCRIPTION: CT HEAD WITHOUT COMPLETED DATE/TIME: 08/18/2018 7:37 pm REASON FOR STUDY: dizziness last normal 1545 COMPARISON: 08/09/2018 TECHNIQUE: Axial images acquired through the brain without intravenous contrast. Images reviewed wi th bone, brain and subdural windows. Additional sagittal and coronal reconstructions were generated. Images stored on PACS. All CT scanners at this facility use dose modulation, iterative reconstruction, and/or weight based d osing when appropriate to reduce radiation dose to as low as reasonably achievable (ALARA). [facility]: Dose Right [facility]: CareDose [facility]: Dose Right [facility]: Teradose 4D [facility]: [employer] RADIATION DOSE: mGy. LIMITATIONS: None. FINDINGS: VENTRICLES: Normal size and contour. CEREBRUM: There is a stable area of encephalomalacia in the right parietal lobe that contains some ma terial of increased echogenicity. Craniotomy changes are present at this point. There is no hemorrh age. There is no midline shift. Normal aguilar/white matter differentiation. No areas of low density in the white matter. CEREBELLUM: No masses. No hemorrhage. No alteration of density. No evidence for acute infarction. EXTRAAXIAL SPACES: No fluid collections. No masses. ORBITS AND GLOBE: No intra- or extraconal masses. Normal contour of globe without masses. CALVARIUM: No fracture. PARANASAL SINUSES: No fluid or mucosal thickening. SOFT TISSUES: No mass or hematoma. OTHER: No other significant finding. IMPRESSION: Stable surgical changes in the right parietal lobe. EVIDENCE OF ACUTE STROKE: NO. COMMENT: Quality ID # [id number]: Final reports with documentation of one or more dose reduction techniques (e.g., Automated exposure control, adjustment of the mA and/or kV according to patient size, use of iterative reconstruction technique) TECHNICAL DOCUMENTATION: JOB ID: [id number] [employer]- All Rights Reserved Reading location - IP/workstation name: [email or web address]
--- NOTE | 2018-08-18 19:59 | RADIOLOGY REPORT (SQ) ---
EXAM DESCRIPTION: CHEST SINGLE VIEW COMPLETED DATE/TIME: 08/18/2018 7:45 pm REASON FOR STUDY: dizziness last normal 1545 COMPARISON: 08/09/2017 and earlier EXAM PARAMETERS: NUMBER OF VIEWS: One view. TECHNIQUE: Single frontal radiographic view of the chest acquired. RADIATION DOSE: NA LIMITATIONS: None. FINDINGS: LUNGS AND PLEURA: No opacities, masses or pneumothorax. No pleural effusion. MEDIASTINUM AND HILAR STRUCTURES: No masses. Contour normal. HEART AND VASCULAR STRUCTURES: Heart normal in size. Normal vasculature. BONES: No acute findings. HARDWARE: Unchanged positioning of the right-sided chest port. OTHER: No other significant finding. IMPRESSION: NO ACUTE RADIOGRAPHIC FINDING IN THE CHEST. TECHNICAL DOCUMENTATION: JOB ID: [id number] [employer]- All Rights Reserved Reading location - IP/workstation name: [email or web address]
[2018-08-18 20:15] LABS: INTERNATIONAL RATION (INR) 1.03; PARTIAL THROMBOPLASTIN TIME 25.1 SEC (23.5-35.8)
[2018-08-18 20:18] LABS: HEMOGLOBIN 8.7 g/dL (12.0-15.5); MEAN CORPUSCULAR HEMOGLOBIN 32.5 pg (27.0-33.4); MEAN CORPUSCULAR HGB CONC 36.3 g/dL (32.0-36.0); MEAN CORPUSCULAR VOLUME 90 fl (80-97); RED BLOOD COUNT 2.69 10^6/uL (3.72-5.28); RED CELL DISTRIBUTION WIDTH 15.9 % (11.5-14.0); WHITE BLOOD COUNT 7.6 10^3/uL (4.0-10.5)
[2018-08-18 20:27] LABS: ALANINE AMINOTRANSFERASE 38 U/L (9-52); ALBUMIN 3.5 g/dL (3.5-5.0); ALKALINE PHOSPHATASE 93 U/L (38-126); ANION GAP 7 (5-19); ASPARTATE AMINO TRANSFERASE 16 U/L (14-36); BILIRUBIN,DIRECT 0.3 mg/dL (0.0-0.4); BILIRUBIN,TOTAL 0.4 mg/dL (0.2-1.3); BLOOD UREA NITROGEN 18 mg/dL (7-20); CALCIUM 9.2 mg/dL (8.4-10.2); CARBON DIOXIDE 27 mmol/L (22-30); CHLORIDE 100 mmol/L (98-107); GLUCOSE 224 mg/dL (75-110); SODIUM 133.8 mmol/L (137-145); TOTAL PROTEIN 5.8 g/dL (6.3-8.2)
[2018-08-18 20:33] LABS: CREATINE KINASE < 20 U/L (30-135)
[2018-08-18 20:41] LABS: CREATINE KINASE MB < 0.22 ng/mL (<4.55); TROPONIN I < 0.012 ng/mL
[2018-08-18 20:45] LABS: PLATELET COUNT 7 10^3/uL (150-450)
[2018-08-18 20:47] LABS: ABSOLUTE LYMPHOCYTES# (MANUAL) 0.8 10^3/uL (0.5-4.7); ABSOLUTE MONOCYTES # (MANUAL) 0.6 10^3/uL (0.1-1.4); ABSOLUTE NEUTROPHILS# (MANUAL) 6.2 10^3/uL (1.7-8.2); ANISOCYTOSIS SLIGHT; BASOPHILS % (MANUAL) 0 % (0-2); EOSINOPHILS % (MANUAL) 0 % (0-6); HYPOCHROMASIA SLIGHT; LYMPHOCYTES % (MANUAL) 10 % (13-45); MONOCYTES % (MANUAL) 8 % (3-13); PLATELET COMMENT DECREASED; POIKILOCYTOSIS SLIGHT; ROULEAUX SLIGHT; SEGMENTED NEUTROPHILS % (MAN) 65 % (42-78); TEAR DROP CELLS 1+; TOTAL CELLS COUNTED 100; TOXIC GRANULATION 2+
[2018-08-18 20:48] LABS: BAND NEUTROPHILS % (MANUAL) 15 % (3-5); METAMYELOCYTES % (MANUAL) 2 % (0)
--- NOTE | 2018-08-18 21:49 | EKG REPORT ---
SEVERITY:- BORDERLINE ECG - SINUS RHYTHM SHORT DE INTERVAL, ACCELERATED AV CONDUCTION TALL R WAVE IN V2, CONSIDER RVH OR PMI : Confirmed by: Zakia Razo MD 18-Aug-2018 21:49:15
[2018-08-18 22:21] LABS: APPEARANCE,URINE CLEAR; BILIRUBIN,URINE NEGATIVE (NEGATIVE); COLOR,URINE YELLOW; GLUCOSE, URINE 50 mg/dL (NEGATIVE); KETONES,URINE NEGATIVE (NEGATIVE); LEUKOCYTE ESTERASE,URINE NEGATIVE (NEGATIVE); NITRITE,URINE NEGATIVE (NEGATIVE); PROTEIN,URINE NEGATIVE (NEGATIVE); URINE SPECIFIC GRAVITY 1.006; UROBILINOGEN,URINE NEGATIVE mg/dL (<2.0)
[2018-08-18] MEDS ORDERED: NORMAL SALINE 250 ML IV PRN (23:14)
[2018-08-18] MEDS ORDERED: ACETAMINOPHEN 325 MG TABLET PO ONE (23:16)
[2018-08-18] MEDS ORDERED: DIPHENHYDRAMINE HCL 50 MG/ML VIAL IV ONE (23:16)
--- NOTE | 2018-08-18 23:32 | ER Document Report ---
ED General - General Chief Complaint: S/S of Possible Stroke Stated Complaint: POSSIBLE STROKE Time Seen by Provider: 08/18/18 19:34 Primary Care Provider: SHAUNA RÍOS NP [Primary Care Provider] - Follow up as needed TRAVEL OUTSIDE OF THE [place] IN LAST 30 DAYS: No - HPI Notes: Patient is a 57-year-old female presents to the emergency department for evaluation. Evidently she was at home. She seemed confused. She told her son she could not remember how to make a salad. She stated she was unsure how to make arrest, she had already made it. According to the son she appeared to have a facial droop. She was sent here for further evaluation. The patient does have known lung adenocarcinoma with metastatic brain lesions. She is status post craniotomy. She is currently receiving chemotherapy with carboplatin and etoposide. She has been known to have thrombocytopenia, platelets were actually for earlier this week. She denies any head injuries. She does have a headache, this is been stable for the last several weeks. - Related Data Allergies/Adverse Reactions: No Known Allergies Allergy (Unverified 03/21/18 22:39) Past Medical History - General Information source: Patient, Relative, Emergency Med Personnel - Social History Smoking Status: Former Smoker Family History: Reviewed & Not Pertinent Patient has suicidal ideation: No Patient has homicidal ideation: No - Past Medical History Cardiac Medical History: Reports: Hx Hypertension Pulmonary Medical History: Reports: Hx Asthma, Hx COPD Endocrine Medical History: Reports: Hx Diabetes Mellitus Type 2 Renal/ Medical History: Denies: Hx Peritoneal Dialysis Malignancy Medical History: Reports: Hx Brain Cancer, Hx Lung Cancer - Small c ell, 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 Review of Systems - Review of Systems Constitutional: Weakness EENT: No symptoms reported Cardiovascular: No symptoms reported Respiratory: No symptoms reported Gastrointestinal: No symptoms reported Genitourinary: No symptoms reported Musculoskeletal: No symptoms reported Skin: No symptoms reported Neurological/Psychological: See HPI Physical Exam - Vital signs Vitals: Pulse Resp BP Pulse Ox 84 23 H 116/58 L 100 08/18/18 19:30 08/18/18 19:30 08/18/18 19:30 08/18/18 19:30 Notes: Temperature 98.0 - Notes Notes: Frail-appearing 57-year-old female, appears her stated age in no acute distress. Right-sided craniotomy scar is well-healing, mild tenderness but no erythema, induration, fluctuance noted. Pupils equal, round, reactive to light. Oral mucosa is moist. Uvula is midline. Heart regular rate and rhythm, lungs are clear to auscultation bilaterally. Abdomen soft, nontender, normoactive bowel sounds. Patient is slow to answer questions but answers them appropriately. She is awake, alert, oriented x3. Cranial nerves II through XII are grossly intact without focal neurological deficits. Drinks is plus 4 out of 5 bilateral upper and lower extremities. Reflexes are symmetrical. Intact [id number], rapid alternating movements, heel to barnett. No pronator drift. Course - Re-evaluation Re-evalutation: 08/18/18 23:33 Patient presents emergency department for evaluation. There is reports of altered mental status and transient left facial droop. She has no facial droop at the time of my evaluation. Repeated neurological exams are stable and unchanged. The patient has no complaints other than a headache which is been stable for some time. Laboratory investigations did reveal marked thrombocytopenia with a platelet count of 7. Patient does have a history of seizures. To me it seems likely that the patient had mild seizure activity, leading to a mild postictal state. She is no focal neurological deficits here. She is stable. Her noncontrast CT scan is unremarkable. I did speak with Dr. Hester, her oncologist at [facility]. He states he had already planned on seeing the patient in follow-up for her low platelet count. She was actually supposed to be seen tomorrow morning first thing. He asked that the patient be transfused with platelets here. He asked that she be medicated with Benadryl and Tylenol, this was done prior to transfusion. The patient was amenable to this plan. She remained stable throughout the course of her stay as far, will continue to follow. 08/18/18 23:58 Patient remained stable, will transfuse the platelets and discharge after transfusion is done. She is to report to Dr. Hester's office tomorrow. - Vital Signs Vital signs: Temp Pulse Resp BP Pulse Ox 98.0 F 76 18 118/64 99 08/18/18 23:33 08/18/18 19:33 08/18/18 20:01 08/18/18 20:01 08/18/18 20:01 - Laboratory Result Diagrams: 08/18/18 20:00 08/18/18 20:00 Laboratory results interpreted by me: 08/18/18 08/18/18 08/18/18 20:00 20:00 22:06 RBC 2.69 L Hgb 8.7 L Hct 24.0 L MCHC 36.3 H RDW 15.9 H Plt Count 7 L* Band Neutrophils % 15 H Lymphocytes % (Manual) 10 L Metamyelocytes % 2 H Sodium 133.8 L Glucose 224 H Creatine Kinase < 20 L Total Protein 5.8 L Urine Glucose (UA) 50 H - Diagnostic Test Radiology reviewed: Reports reviewed - Reports reviewed, no acute process noted on head CT or chest x-ray - EKG Interpretation by Me Additional EKG results interpreted by me: 08/18/18 23:32 Sinus mechanism with a rate of 73 bpm. Short DC interval. No acute ST changes concerning for ischemia or infarction. No significant change compared to prior. Discharge - Discharge Clinical Impression: Altered mental status, Thrombocytopenia Condition: Stable Disposition: HOME, SELF-CARE Instructions: Altered Mental Status ([facility]), Thrombocytopenia ([facility]) Additional Instructions: Report to Dr. Hester's office as previously scheduled tomorrow morning. Return to the emergency department with worsening or new concerning symptoms. Referrals: SHAUNA RÍOS NP [Primary Care Provider] - Follow up as needed
[2018-08-19 02:16] VITALS: BP 124/71
[2018-08-19 11:26] LABS: PATH REVIEW PATHOLOGIST REVIEWED
== END 2018-08-19 02:29 | disposition home or self-care (01) ==
LOC: ER 19:28
DX: D69.6 Thrombocytopenia, unspecified (principal); R41.82 Altered mental status, unspecified; C34.90 Malignant neoplasm of unspecified part of unspecified bronchus or lung; C79.31 Secondary malignant neoplasm of brain; I10 Essential (primary) hypertension; J45.909 Unspecified asthma, uncomplicated; J44.9 Chronic obstructive pulmonary disease, unspecified; E11.9 Type 2 diabetes mellitus without complications; Z90.49 Acquired absence of other specified parts of digestive tract; Z79.899 Other long term (current) drug therapy
CPT/HCPCS: 93005; 36591; 99285; 96374; 86900; 86901; 36415; 82553; 36430; 82962; 82550; 85025; 85610; 85730; 80053; 81001; 84484; 71045; 70450; 93010; P9035; J3490; J1200

== ENCOUNTER 2019-06-13 20:50 | Inpatient (IN) | payer MEDICAID ==
--- NOTE | 2019-06-13 21:43 | RADIOLOGY REPORT (SQ) ---
EXAM DESCRIPTION: XR CHEST 1 VIEW COMPLETED DATE/TME: 06/13/2019 00:00 CLINICAL HISTORY: 58 years, Female, SOB; low O2 COMPARISON: August 18, 2018 NUMBER OF VIEWS: Single portable AP TECHNIQUE: LIMITATIONS: None. FINDINGS: Paramediastinal slight is prominent. Interstitial prominence of peribronchial cuffing. No focal airspace consolidation. Right IJ port catheter tip projects over the superior vena cava. No effusion or pneumothorax IMPRESSION: Interstitial prominence. Peribronchial cuffing. Lungs otherwise grossly clear. No adverse change from prior copyright 2010 [employer]- All Rights Reserved
--- NOTE | 2019-06-13 22:08 | ER Document Report ---
ED Neuro Symptoms/Deficit - General TRAVEL OUTSIDE OF THE [place] IN LAST 30 DAYS: No - Related Data Home Medications: has meds here <THIEN GRIDER - Last Filed: 06/14/19 03:47> <HERI PADILLA JR - Last Filed: 06/14/19 05:09> - General Chief Complaint: Breathing Difficulty Stated Complaint: POSSIBLE SEIZURE Time Seen by Provider: 06/13/19 21:48 Primary Care Provider: SHAUNA RÍOS NP [Primary Care Provider] - Follow up as needed Notes: 58-year-old woman presents to the emergency department with a history of an unwitnessed episode at home where she appeared to be somewhat different and staring off. Apparently, this occurred at approximately 4 PM this afternoon. The patient was transported to the emergency department by EMS noted to be tachycardic and alert and oriented. She has no prior history of CVA. She has a history of hypertension, everyday smoker, COPD/asthma in the past. The patient d oes have known lung adenocarcinoma with metastatic brain lesions. This information was obtained from a previous hospital record. (THIEN GRIDER) - Related Data Allergies/Adverse Reactions: No Known Allergies Allergy (Unverified 03/21/18 22:39) Past Medical History - Social History Smoking Status: Current Every Day Smoker Chew tobacco use (# tins/day): No Frequency of alcohol use: None Drug Abuse: None Family History: Reviewed & Not Pertinent Patient has suicidal ideation: No Patient has homicidal ideation: No - Past Medical History Cardiac Medical History: Reports: Hx Hypertension Pulmonary Medical History: Reports: Hx Asthma, Hx COPD Endocrine Medical History: Reports: Hx Diabetes Mellitus Type 2 Renal/ Medical History: Denies: Hx Peritoneal Dialysis Malignancy Medical History: Reports: Hx Brain Cancer, Hx Lung Cancer - Small cell, 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 <THIEN GRIDER - Last Filed: 06/14/19 03:47> Review of Systems <THIEN GRIDER - Last Filed: 06/14/19 03:47> - Review of Systems Notes: Constitutional: Negative for fever. HENT: Negative for sore throat. Eyes: + Left [place] gaze Cardiovascular: Negative for chest pain. Respiratory: Negative for shortness of breath. Gastrointestinal: Negative for abdominal pain, vomiting or diarrhea. Genitourinary: Negative for dysuria. Musculoskeletal: Negative for back pain. Skin: Negative for rash. Neurological: + Left upper extremity and left lower extremity weakness 10 point ROS negative except as marked above and in HPI. (THIEN GRIDER) Physical Exam <THIEN GRIDER - Last Filed: 06/14/19 03:47> - Vital signs Vitals: Pulse Ox 93 06/13/19 20:57 - Notes Notes: PHYSICAL EXAMINATION: Physical Exam: General: Well-nourished well-developed in no acute distress HEENT: NC/AT, + leftward gaze, MM moist,nares clear, Neck: supple, no adenopathy, no masses. Lungs: clear, no wheezing, no rales no rhonchi CVS: Regular rate and rhythm no murmur gallop or rub Abdomen: Soft active nontender, no masses, no hepatosplenomegaly Ext: No edema clubbing or cyanosis. Neuro: Alert and responsive, 2/5 weakness in the left upper extremity, 5/5 on the right side. Skin: Intact no open lesions, no rash PSYCH: Normal mood, normal affect. (THIEN GRIDER) Course - Laboratory Result Diagrams: 06/13/19 22:35 06/13/19 22:35 <THIEN GRIDER - Last Filed: 06/14/19 03:47> - Laboratory Result Diagrams: 06/13/19 22:35 06/13/19 22:35 <HERI PADILLA JR - Last Filed: 06/14/19 05:09> - Re-evaluation Re-evalutation: 06/13/19 22:25 patient appears to have focal neurologic findings with weakness on the left side and leftward gaze. May represent post seizure episode however given the lack of information and her risk factors acute CT scan and CTA of the head and neck were performed to rule out large vessel occlusion in the brain. Upon returning from CT scan patient was then noted to have tonic-clonic seizure activity involving the left side greater than right. She was given Lorazepam 1 mg IV. Labs were collected as well as close monitoring in the postictal phase. 06/14/19 03:28 Patient noted to be sleeping and a ABG revealed a pH of 7.23, PCO2 47, PO2 of 65 with a bicarb of 19 and a CO2 20. Patient has adenocarcinoma of the lung as well as a component of COPD and smokes daily. She uses oxygen at night according to her . . 06/14/19 03:40 Patient was awakened and was able to answer questions and follow directions. 06/14/19 03:49 I have given her bicarb, insulin for an elevated blood sugar, and nebulizer treatment. I had explained to the family that once she has returned to close to baseline we would be able to discharge her back to the home. They are in agreement with that plan. 06/14/19 03:51 06/14/19 03:58 I discussed the patient with Dr. Padilla, patient has improved significantly, may be called later today for disposition home when she returns to normal. (THIEN GRIDER) 06/14/19 05:06 I discussed this case with Dr. James hospitalist and he advises talking with the patient's [place] at [phone] and he advised that the patient has been on Keppra for 1 year and before that was on Dilantin. Patient has not run out of her medicines. I also spoke with Dr. Orr oncology and she advises observation for post ictal state and hyperglycemia. Dr. James was again called at 0 504 admission and he advises IMCU and also the advises the patient is a DO NOT RESUSCITATE but there is no paperwork and we did sign a DNR order on this date. He received insulin 4 units per nursing staff. Also Rocephin and Zithromax IV because of a lesion seen on the neck CTA left upper lobe. (HERI PADILLA JR) - Vital Signs Vital signs: Temp Pulse Resp BP Pulse Ox 97.9 F 111 H 19 114/62 93 06/14/19 04:21 06/14/19 04:26 06/14/19 04:26 06/14/19 04:26 06/14/19 04:26 - Laboratory Laboratory results interpreted by me: 06/13/19 06/13/19 06/13/19 22:35 22:35 22:35 WBC 12.0 H RBC 3.44 L MCV 105 H MCH 35.2 H RDW 14.2 H Lymph % (Auto) 11.2 L Absolute Neuts (auto) 10.0 H Seg Neutrophils % 83.0 H Carbonic Acid ABG pH ABG pCO2 ABG pO2 ABG HCO3 ABG Total CO2 ABG O2 Saturation VBG pH VBG pCO2 Sodium 134.5 L Carbon Dioxide 21 L Glucose 326 H POC Glucose Magnesium 1.4 L Urine Glucose (UA) >=500 H 06/13/19 06/13/19 06/14/19 22:36 23:10 02:46 WBC RBC MCV MCH RDW Lymph % (Auto) Absolute Neuts (auto) Seg Neutrophils % Carbonic Acid 1.42 H ABG pH 7.23 L ABG pCO2 47.3 H ABG pO2 65.0 L ABG HCO3 19.2 L ABG Total CO2 20.7 L ABG O2 Saturation 88.7 L VBG pH 7.12 L* VBG pCO2 73.7 H* Sodium Carbon Dioxide Glucose POC Glucose 363 H Magnesium Urine Glucose (UA) 06/14/19 06/14/19 03:41 04:33 WBC RBC MCV MCH RDW Lymph % (Auto) Absolute Neuts (auto) Seg Neutrophils % Carbonic Acid ABG pH ABG pCO2 ABG pO2 ABG HCO3 ABG Total CO2 ABG O2 Saturation VBG pH VBG pCO2 Sodium Carbon Dioxide Glucose POC Glucose 408 H* 366 H Magnesium Urine Glucose (UA) Discharge <THIEN GRIDER - Last Filed: 06/14/19 03:47> - Discharge Admitting Provider: Jacob (Hospitalist) <HERI PADILLA JR - Last Filed: 06/14/19 05:09> - Discharge Clinical Impression: Seizure, Post-ictal state, Poorly controlled diabetes mellitus, On home O2, Adenocarcinoma of left lung, Hypomagnesemia Disposition: ADMITTED OBSERVATION Referrals: SHAUNA RÍOS NP [Primary Care Provider] - Follow up as needed
[2019-06-13] MEDS ORDERED: NORMAL SALINE 1000 ML 500 ML IV ONE (22:25)
[2019-06-13] MEDS ORDERED: LORAZEPAM INJ 2 MG/1 ML VIAL IV ONE (22:27)
[2019-06-13 22:57] LABS: ABSOLUTE LYMPHOCYTES (AUTO) 1.3 10^3/uL (0.5-4.7); ABSOLUTE MONOCYTES (AUTO) 0.6 10^3/uL (0.1-1.4); BASOPHILS % (AUTO) 0.3 % (0-2); EOSINOPHILS % (AUTO) 0.2 % (0-6); HEMATOCRIT 36.1 % (36.0-47.0); HEMOGLOBIN 12.1 g/dL (12.0-15.5); LYMPHOCYTES % (AUTO) 11.2 % (13-45); MEAN CORPUSCULAR HEMOGLOBIN 35.2 pg (27.0-33.4); MEAN CORPUSCULAR HGB CONC 33.6 g/dL (32.0-36.0); MEAN CORPUSCULAR VOLUME 105 fl (80-97); MONOCYTES % (AUTO) 5.3 % (3-13); PLATELET COUNT 156 10^3/uL (150-450); RED BLOOD COUNT 3.44 10^6/uL (3.72-5.28); RED CELL DISTRIBUTION WIDTH 14.2 % (11.5-14.0); TOTAL CELLS COUNTED % (AUTO) 100 %
[2019-06-13 22:59] LABS: INTERNATIONAL RATION (INR) 1.09; PROTHROMBIN TIME 14.1 SEC (11.4-15.4)
[2019-06-13 23:00] LABS: PARTIAL THROMBOPLASTIN TIME 34.2 SEC (23.5-35.8)
[2019-06-13 23:01] LABS: APPEARANCE,URINE CLEAR; BILIRUBIN,URINE NEGATIVE (NEGATIVE); COLOR,URINE YELLOW; GLUCOSE, URINE >=500 mg/dL (NEGATIVE); KETONES,URINE NEGATIVE (NEGATIVE); LEUKOCYTE ESTERASE,URINE NEGATIVE (NEGATIVE); NITRITE,URINE NEGATIVE (NEGATIVE); PROTEIN,URINE NEGATIVE (NEGATIVE); URINE SPECIFIC GRAVITY 1.008; UROBILINOGEN,URINE NEGATIVE mg/dL (<2.0)
--- NOTE | 2019-06-13 23:08 | RADIOLOGY REPORT (SQ) ---
EXAM DESCRIPTION: [facility]Lex: CT HEAD WITHOUT IV CONTRAST CLINICAL HISTORY: 58 years Female; STROKE SYMPTOMS; TECHNIQUE: Noncontrast CT head. All CT scans at this facility use dose modulation, iterative reconstruction, and/or weight based dosing when appropriate to reduce radiation dose to as low as reasonably achievable. COMPARISON: CT 08/18/2018 FINDINGS: Changes of previous right parietal craniotomy are again noted. There are hypodense changes in the right parietal lobe deep to the craniotomy site. No acute hemorrhage. Ventricles and cisterns are preserved. Visualized portions of paranasal sinuses and mastoids are clear. Visualized portions of the calvarium are within normal limits. IMPRESSION: 1. No acute hemorrhage or mass effect 2. Previous right parietal craniotomy with underlying right parietal changes. Please correlate with clinical history; cannot exclude recurrent/residual tumor on this exam.
[2019-06-13 23:10] LABS: ALBUMIN 3.9 g/dL (3.5-5.0); ALKALINE PHOSPHATASE 100 U/L (38-126); ANION GAP 14 (5-19); ASPARTATE AMINO TRANSFERASE 21 U/L (14-36); BILIRUBIN,TOTAL 0.3 mg/dL (0.2-1.3); BLOOD UREA NITROGEN 9 mg/dL (7-20); CALCIUM 9.3 mg/dL (8.4-10.2); CARBON DIOXIDE 21 mmol/L (22-30); CHLORIDE 100 mmol/L (98-107); CREATINE KINASE 32 U/L (30-135); GLUCOSE 326 mg/dL (75-110); POTASSIUM 3.6 mmol/L (3.6-5.0); TOTAL PROTEIN 6.8 g/dL (6.3-8.2)
--- NOTE | 2019-06-13 23:10 | RADIOLOGY REPORT (SQ) ---
EXAM DESCRIPTION: CT HEAD ANGIOGRAPHY WITHOUT THEN WITH IV CONTRAST, CT NECK ANGIOGRAPHY WITHOUT THEN WITH IV CONTRAST COMPLETED DATE/TME: 06/13/2019 22:05 CLINICAL HISTORY: 58 years, Female, Stroke symptoms COMPARISON: Prior CT head from earlier the same day as well as 08/18/2018 TECHNIQUE: Contrast enhanced CTA of the head and neck were acquired after the uneventful administration of 70 mL of Omnipaque 350 intravenous contrast. Images stored on PACS. MIPS were created. All CT scanners at this facility use dose modulation, iterative reconstruction, and/or weight based dosing when appropriate to reduce radiation dose to as low as reasonably achievable (ALARA). [facility]: Dose Right [facility]: CareDose [facility]: Dose Right [facility]: Teradose 4D [facility]: [employer] LIMITATIONS: None. FINDINGS: Limited evaluation of the chest reveals bands of opacity about the superior segments of both lower lobes, indicating areas of atelectasis and/or scar. In addition, there is patchy ground glass opacity located within the left upper lobe anterior segment with a few well-circumscribed nodules located within the right upper lobe. For example, there is a 0.5 cm solid nodule within the right upper lobe posterior segment on image 23 of series 4. An additional 0.5 cm solid nodule is noted within the right upper lobe on image 48 of series 4. An additional 0.4 cm solid nodule is noted within the right upper lobe anterior segment on the same image. An additional irregular shaped nodular opacity is noted within the left upper lobe measuring 1.0 x 1.1 cm in size in image 48 of series 4. A few additional subcentimeter nodules are noted elsewhere. Thyroid gland appears enhance symmetrically. The hypopharynx, oropharynx, and nasopharynx show no suspicious abnormality. Bilateral parotid and submandibular glands appear normal. No suspicious deep cervical lymphadenopathy is appreciated. Globes and orbits show no suspicious finding. Paranasal sinuses and mastoid air cells are overall clear. Additional intraparenchymal findings are reported separately. Calcifications are evident about the coronary vessels. The thoracic aortic arch appears opacify with contrast normally. Only mild peripheral calcifications are noted about the origins of the great vessels. Right side: Right common and internal carotid arteries opacify with contrast normally. There is medial deviation of the mid internal carotid artery. Intracranial portions of the right ICA demonstrate mild peripheral calcified atherosclerotic plaque about the carotid cavernous segment. The right MCA and NAVARRO appear to opacify with contrast normally. Left side: The left common carotid artery opacifies with contrast normally, as does the left ICA. The left ICA does demonstrate a medially deviated course about its midportion. The intracranial portions of the left ICA demonstrates mild peripheral calcified atherosclerotic plaque about the cavernous segment. The left MCA and NAVARRO opacify with contrast normally. Posterior circulation: Bilateral vertebral arteries appear to opacify with contrast normally. The basilar artery and both posterior cerebral arteries also appear to opacify with contrast normally. Major dural venous sinuses opacify with contrast normally as well. Limited imaging of the cervical spine reveals mild multilevel cervical spondylosis. IMPRESSION: No evidence of flow significant stenosis/major arterial vessel occlusion, aneurysm, or dissection within the head or neck. Multiple pulmonary nodules. Most severe: 10.5 mm solid suspicious pulmonary nodule within the upper lobe detected on incomplete chest CT. Recommend immediate non-contrast Chest CT for further evaluation. These guidelines do not apply to immunocompromised patients and patients with cancer. Follow up in patients with significant comorbidities as clinically warranted. For lung cancer screening, adhere to Lung-RADS guidelines. Reference: Radiology. 2017; 284(1):228-43. Patchy groundglass opacity within the left upper lobe anterior segment, presumably infectious/inflammatory in etiology. TECHNICAL DOCUMENTATION: Quality ID # 436: Final reports with documentation of one or more dose reduction techniques (e.g., Automated exposure control, adjustment of the mA and/or kV according to patient size, use of iterative reconstruction technique) copyright 2011 [employer]- All Rights Reserved
[2019-06-13 23:11] LABS: ALCOHOL < 10 mg/dL (NONE DETECTED)
[2019-06-13 23:16] LABS: URINE AMPHETAMINES SCREEN NEGATIVE; URINE BARBITURATES SCREEN NEGATIVE; URINE BENZODIAZEPINES SCREEN NEGATIVE; URINE COCAINE SCREEN NEGATIVE; URINE MARIJUANA (THC) SCREEN NEGATIVE; URINE METHADONE SCREEN NEGATIVE; URINE PHENCYCLIDINE SCREEN NEGATIVE
[2019-06-13 23:25] LABS: CREATINE KINASE MB 0.34 ng/mL (<4.55); TROPONIN I < 0.012 ng/mL
[2019-06-13] MEDS ORDERED: LEVETIRACETAM 1000 MG/NACL-ISO 1,000 MG/100 ML RTUPB IV ONE (23:37)
--- NOTE | 2019-06-14 00:53 | EKG REPORT ---
SEVERITY:- ABNORMAL ECG - SINUS TACHYCARDIA REPOL ABNRM SUGGESTS ISCHEMIA, DIFFUSE LEADS : Confirmed by: Zakia Razo MD 14-Jun-2019 00:52:44
[2019-06-14 01:24] LABS: VENOUS BLOOD BASE EXCESS -7.6 mmol/L; VENOUS BLOOD HCO3 23.2 mmol/L (20-32)
[2019-06-14 01:28] LABS: VENOUS BLOOD PCO2 73.7 mmHg (35-63); VENOUS BLOOD PH 7.12 (7.30-7.42)
[2019-06-14 03:26] LABS: ARTERIAL BLOOD H2CO3 1.42 mmol/L (1.05-1.35); ARTERIAL BLOOD HCO3 19.2 mmol/L (20-24); ARTERIAL BLOOD O2 SATURATION 88.7 % (94-98); ARTERIAL BLOOD PCO2 47.3 mmHg (35-45); ARTERIAL BLOOD PH 7.23 (7.35-7.45); ARTERIAL BLOOD TOTAL CO2 20.7 mmol/L (21-25)
[2019-06-14 03:30] LABS: ARTERIAL BLOOD FIO2 3L
[2019-06-14] MEDS ORDERED: SODIUM BICARBONATE 8.4% INJ 50 MEQ/50 ML DISP.SYRIN IV ONE (03:33)
[2019-06-14] MEDS ORDERED: INSULIN REG, HUMAN 100 UNIT/ML 3 ML VIAL (PYX) IV ONE ×2 (03:34→04:59)
[2019-06-14] MEDS ORDERED: IPRATROPIUM/ALBUTEROL 0.5-2.5 MG/3 ML AMPUL NEB ONE (03:35)
[2019-06-14] MEDS ORDERED: AZITHROMYCIN 250 MG TABLET PO ONE (04:41)
[2019-06-14] MEDS ORDERED: CEFTRIAXONE INJ 1000 MG VIAL IV ONE (04:41)
[2019-06-14] MEDS ORDERED: AZITHROMYCIN INJ 500 MG VIAL IV ONE (04:42)
[2019-06-14] MEDS ORDERED: DEXTROSE 50%-WATER 25 GM/50 ML DISP.SYRIN IV PRN ×2 (05:22)
[2019-06-14] MEDS ORDERED: GLUCAGON,HUMAN RECOMB 1 MG INJ IM PRN (05:22)
[2019-06-14] MEDS ORDERED: MAG HYDROX/AL HYDROX/SIMETH SUSP 30 ML UDCUP PO PRN (05:22)
[2019-06-14] MEDS ORDERED: DEXTROSE 40% GEL 15 GM TUBE PO PRN ×2 (05:22)
[2019-06-14] MEDS ORDERED: MAGNESIUM HYDROXIDE SUSP 30 ML UDCUP PO PRN (05:22)
[2019-06-14] MEDS ORDERED: IPRATROPIUM/ALBUTEROL 0.5-2.5 MG/3 ML AMPUL NEB PRN ×2 (05:22→12:30)
[2019-06-14] MEDS ORDERED: ACETAMINOPHEN 325 MG TABLET PO PRN (05:22)
--- NOTE | 2019-06-14 05:37 | PDOC H&P ---
History of Present Illness Admission Date/PCP: 06/14/19 05:23 SHAUNA RÍOS NP Patient complains of: Seizure History of Present Illness: DIEUDONNE FONSECA is a 58 year old female with a past medical history of coronary artery disease, diabetes, small cell lung cancer with mets to brain and subsequent seizures. She presents from home after a witnessed episode of staring off and unresponsiveness. In the emergency department she has a grand mal seizure, found to have metabolic acidosis and hyperglycemia. She is a poor historian but from records is under the treatment of Dr. Hester in [place]. CODE STATUS is verified by emergency room provider to be DNR. Patient is arousable by voice and able to state her name but otherwise confused. She is not thought to have a recent change in medications, imaging is unremarkable. She received Keppra loading dose and Keppra level is pending. She is referred to the hospitalist for observation Past Medical History Cardiac Medical History: Reports: Hypertension Pulmonary Medical History: Reports: Asthma, Chronic Obstructive Pulmonary Disease (COPD) Endocrine Medical History: Reports: Diabetes Mellitus Type 2 Malignancy Medical History: Reports: Brain Cancer, Lung Cancer - Small cell, stage IV likely Musculoskeltal Medical History: Reports: Arthritis Psychiatric Medical History: Reports: Depression Past Surgical History Past Surgical History: Reports: Cardiac Catheterization - 7 stents, Cholecystect arnoldo, Orthopedic Surgery, Other - Craniotomy for brain mets. Social History Information Source: Patient Smoking Status: Current Every Day Smoker Electronic Cigarette use?: No Frequency of Alcohol Use: None Hx Recreational Drug Use: No Drugs: None - Advance Directive Resuscitation Status: Full Code Family History Family History: Other - Unobtainable Parental Family History Reviewed: No - Unobtainable Children Family History Reviewed: No - Unobtainable Sibling(s) Family History Reviewed.: No - Unobtainable Medication/Allergy Home Medications: Acetaminophen [Non-Aspirin Pain Relief] 500 mg PO Q4HP PRN 08/09/18 Aprepitant [Cinvanti] 18 ml IV [id number] 08/09/18 Buspirone HCl [Buspar 5 mg Tablet] 5 mg PO Q8 08/09/18 Calcium Carbonate [Tums Chewable 500 mg Tab.chew] 500 mg PO TIDP PRN 08/09/18 Dexamethasone 2 mg PO Q12 08/09/18 Famotidine [Acid Controller] 20 mg PO Q12 08/09/18 Gabapentin [Neurontin 300 mg Capsule] 300 mg PO Q8 08/09/18 Insulin Glargine,Hum.rec.anlog [Lantus Insulin 100 Unit/mL Insulin Pen] 38 unit SQ QHS 08/09/18 Insulin Lispro [Humalog Insulin (Lispro) 100 unit/mL] 30 unit SQ AC 08/09/18 Levetiracetam [Keppra] 750 mg PO Q12 08/09/18 Magnesium Oxide [Mag-Ox 400 mg Tablet] 400 mg PO DAILY 08/09/18 Melatonin [Melatonin 3 mg Tablet] 3 mg PO HSP PRN 08/09/18 Metformin HCl 500 mg PO Q12 08/09/18 Ondansetron [Zofran Odt 4 mg Tablet] 8 mg PO Q8HP PRN 08/09/18 Pantoprazole Sodium [Protonix [address] Tablet] 40 mg PO Q12 08/09/18 Paroxetine HCl [Paxil] 40 mg PO DAILY 08/09/18 Polyethylene Glycol 3350 [Miralax Powder 17 gm/Packet] 17 gm PO DAILY 08/09/18 Prasugrel HCl [Effient 10 mg Tablet] 10 mg PO DAILY 08/09/18 Prochlorperazine Maleate [Compazine 10 mg Tablet] 10 mg PO Q6HP PRN 08/09/18 Ciprofloxacin HCl [Cipro 500 mg Tablet] 500 mg PO DAILY #3 tablet 08/12/18 Allergies/Adverse Reactions: No Known Allergies Allergy (Unverified 03/21/18 22:39) Review of Systems ROS unobtainable: Due to mental status Physical Exam Vital Signs: Temp Pulse Resp BP Pulse Ox 97.9 F 111 H 19 114/62 93 06/14/19 04:21 06/14/19 04:26 06/14/19 04:26 06/14/19 04:26 06/14/19 04:26 Intake & Output 06/12/19 06/13/19 06/14/19 11:59 11:59 11:59 Intake Total 100 Balance 100 Weight 79 kg General appearance: PRESENT: cooperative, mild distress, obese, well-developed, well-nourished, other - Pale, chronically ill-appearing with temporal wasting Head exam: PRESENT: atraumatic, normocephalic Eye exam: PRESENT: conjunctiva pink, EOMI, PERRLA. ABSENT: scleral icterus Ear exam: PRESENT: normal external ear exam Mouth exam: PRESENT: moist, tongue midline Neck exam: ABSENT: carotid bruit, JVD, lymphadenopathy, thyromegaly Respiratory exam: PRESENT: clear to auscultation lorna. ABSENT: rales, rhonchi, wheezes Cardiovascular exam: PRESENT: RRR. ABSENT: diastolic murmur, rubs, systolic murmur Pulses: PRESENT: normal dorsalis pedis pul Vascular exam: PRESENT: normal capillary refill GI/Abdominal exam: PRESENT: normal bowel sounds, soft. ABSENT: distended, guarding, mass, organolmegaly, rebound, tenderness Rectal exam: PRESENT: deferred Extremities exam: PRESENT: full ROM. ABSENT: calf tenderness, clubbing, pedal edema Neurological exam: PRESENT: altered, oriented to person, CN II-XII grossly intact. ABSENT: motor sensory deficit Psychiatric exam: PRESENT: flat affect, unusual affect Skin exam: PRESENT: dry, intact, warm. ABSENT: cyanosis, rash Results Laboratory Results: 06/13/19 22:35 06/13/19 22:35 06/13/19 06/13/19 06/13/19 22:35 22:35 22:35 WBC 12.0 H RBC 3.44 L Hgb 12.1 Hct 36.1 MCV 105 H MCH 35.2 H MCHC 33.6 RDW 14.2 H Plt Count 156 Seg Neutrophils % 83.0 H Carbonic Acid HCO3/H2CO3 Ratio ABG pH ABG pCO2 ABG pO2 ABG HCO3 ABG O2 Saturation ABG Base Excess VBG pH VBG pCO2 VBG HCO3 VBG Base Excess FiO2 Sodium 134.5 L Potassium 3.6 Chloride 100 Carbon Dioxide 21 L Anion Gap 14 BUN 9 Creatinine 0.61 Est GFR ( Amer) > 60 Glucose 326 H Lactic Acid Calcium 9.3 Magnesium 1.4 L Total Bilirubin 0.3 AST 21 Alkaline Phosphatase 100 Total Protein 6.8 Albumin 3.9 Urine Color YELLOW Urine Appearance CLEAR Urine pH 7.0 Ur Specific Ceres 1.008 Urine Protein NEGATIVE Urine Glucose (UA) >=500 H Urine Ketones NEGATIVE Urine Blood NEGATIVE Urine Nitrite NEGATIVE Ur Leukocyte Esterase NEGATIVE Urine WBC (Auto) 1 Urine RBC (Auto) 3 06/13/19 06/13/19 06/14/19 23:10 23:10 02:46 WBC RBC Hgb Hct MCV MCH MCHC RDW Plt Count Seg Neutrophils % Carbonic Acid 1.42 H HCO3/H2CO3 Ratio 13:1 ABG pH 7.23 L ABG pCO2 47.3 H ABG pO2 65.0 L ABG HCO3 19.2 L ABG O2 Saturation 88.7 L ABG Base Excess -8.0 VBG pH 7.12 L* VBG pCO2 73.7 H* VBG HCO3 23.2 VBG Base Excess -7.6 FiO2 3L Sodium Potassium Chloride Carbon Dioxide Anion Gap BUN Creatinine Est GFR ( Amer) Glucose Lactic Acid 1.7 Calcium Magnesium Total Bilirubin AST Alkaline Phosphatase Total Protein Albumin Urine Color Urine Appearance Urine pH Ur Specific Ceres Urine Protein Urine Glucose (UA) Urine Ketones Urine Blood Urine Nitrite Ur Leukocyte Esterase Urine WBC (Auto) Urine RBC (Auto) 06/13/19 06/13/19 22:35 22:35 Creatine Kinase 32 CK-MB (CK-2) 0.34 Troponin I < 0.012 Impressions: Chest X-Ray 06/13/19 00:00 IMPRESSION: Interstitial prominence. Peribronchial cuffing. Lungs otherwise grossly clear. No adverse change from prior copyright 2010 [employer]- All Rights Reserved Head CT 06/13/19 00:00 IMPRESSION: 1. No acute hemorrhage or mass effect 2. Previous right parietal craniotomy with underlying right parietal changes. Please correlate with clinical history; cannot exclude recurrent/residual tumor on this exam. Head CTA 06/13/19 22:05 IMPRESSION: No evidence of flow significant stenosis/major arterial vessel occlusion, aneurysm, or dissection within the head or neck. Multiple pulmonary nodules. Most severe: 10.5 mm solid suspicious pulmonary nodule within the upper lobe detected on incomplete chest CT. Recommend immediate non-contrast Chest CT for further evaluation. These guidelines do not apply to immunocompromised patients and patients with cancer. Follow up in patients with significant comorbidities as clinically warranted. For lung cancer screening, adhere to Lung-RADS guidelines. Reference: Radiology. 2017; 284(1):228-43. Patchy groundglass opacity within the left upper lobe anterior segment, presumably infectious/inflammatory in etiology. TECHNICAL DOCUMENTATION: Quality ID # 436: Final reports with documentation of one or more dose reduction techniques (e.g., Automated exposure control, adjustment of the mA and/or kV according to patient size, use of iterative reconstruction technique) copyright 2010 [employer]- All Rights Reserved Neck CTA 06/13/19 22:05 IMPRESSION: No evidence of flow significant stenosis/major arterial vessel occlusion, aneurysm, or dissection within the head or neck. Multiple pulmonary nodules. Most severe: 10.5 mm solid suspicious pulmonary nodule within the upper lobe detected on incomplete chest CT. Recommend immediate non-contrast Chest CT for further evaluation. These guidelines do not apply to immunocompromised patients and patients with cancer. Follow up in patients with significant comorbidities as clinically warranted. For lung cancer screening, adhere to Lung-RADS guidelines. Reference: Radiology. 2017; 284(1):228-43. Patchy groundglass opacity within the left upper lobe anterior segment, presumably infectious/inflammatory in etiology. TECHNICAL DOCUMENTATION: Quality ID # 436: Final reports with documentation of one or more dose reduction techniques (e.g., Automated exposure control, adjustment of the mA and/or kV according to patient size, use of iterative reconstruction technique) copyright 2010 [employer]- All Rights Reserved Assessment and Plan - Diagnosis (1) Metabolic acidosis Is this a current diagnosis for this admission?: Yes Plan: Likely secondary to seizure, IV fluid challenge, IV Keppra loaded. Follow-up chemistry and Keppra level (2) Adenocarcinoma of left lung Is this a current diagnosis for this admission?: Yes Plan: Supportive care, DNR, oncology with Dr. Hester at [facility]. (3) Post-ictal state Is this a current diagnosis for this admission?: Yes Plan: Supportive care (4) Seizure Is this a current diagnosis for this admission?: Yes Plan: Possible metabolic derangement but likely subtherapeutic Keppra (5) Anemia associated with chemotherapy Is this a current diagnosis for this admission?: Yes Plan: Follow-up anemia labs for macrocytosis. - Time Time Spent with patient: 25-34 minutes - Inpatient Certification Medical Necessity: Need Close Monitoring Due to Risk of Patient Decompensation
[2019-06-14 06:07] LABS: ABSOLUTE RETICS # 0.087 10^6/uL (0.028-0.122); RETICULOCYTE COUNT (AUTO) 2.55 % (0.66-2.85)
[2019-06-14] MEDS: HEPARIN SOD (PORCINE) 5,000 UNIT/ML 1 ML VIAL SUBCUT SCH ×3 (06:56→21:11)
[2019-06-14 07:32] LABS: IRON(TIBC) 19.2 ug/dL (37-170)
[2019-06-14] MEDS: INSULIN LISPRO 100 UNIT/ML 3 ML VIAL SUBCUT SCH ×3 (08:29→17:35)
[2019-06-14] MEDS: NORMAL SALINE 1000 ML 1,000 ML IV PRN ×2 (08:36→12:49)
[2019-06-14 10:45] LABS: FOLATE > 20.00 ng/mL (>2.76)
[2019-06-14] MEDS ORDERED: ALBUTEROL SULFATE HFA (90 MCG/PUFF) 8 GM MDI (1 MDI/ER DISP) IH PRN (12:26)
[2019-06-14] MEDS ORDERED: ONDANSETRON HCL 8 MG TABLET PO PRN (12:26)
[2019-06-14] MEDS ORDERED: NITROGLYCERIN 0.4 MG/TAB 25 TAB/BOTTLE SL PRN (12:26)
[2019-06-14] MEDS ORDERED: MAGNESIUM OXIDE 400 MG TABLET PO ONE (13:00)
[2019-06-14] MEDS: METFORMIN HCL 500 MG TABLET PO SCH ×2 (13:49→21:12)
[2019-06-14] MEDS: LEVETIRACETAM 1000 MG/NACL-ISO 1,000 MG/100 ML RTUPB IV SCH ×2 (13:50→21:12)
[2019-06-14] MEDS ORDERED: ALBUTEROL SULFATE 0.083% NEB 2.5 MG/3 ML AMPUL NEB SCH (14:00)
[2019-06-14] MEDS: MECLIZINE HCL 25 MG TABLET PO PRN (15:16)
[2019-06-14] MEDS: RANOLAZINE 500 MG TAB.SR.12H PO SCH (21:11)
[2019-06-14] MEDS: PROCHLORPERAZINE MALEATE 10 MG TABLET PO PRN (22:04)
[2019-06-15] MEDS: INSULIN LISPRO 100 UNIT/ML 3 ML VIAL SUBCUT SCH ×4 (06:12→17:34)
[2019-06-15] MEDS: HEPARIN SOD (PORCINE) 5,000 UNIT/ML 1 ML VIAL SUBCUT SCH ×3 (06:13→21:29)
[2019-06-15 07:22] LABS: BLOOD UREA NITROGEN 6 mg/dL (7-20); CALCIUM 8.4 mg/dL (8.4-10.2); GLUCOSE 189 mg/dL (75-110); POTASSIUM 3.9 mmol/L (3.6-5.0)
[2019-06-15 07:25] LABS: ABSOLUTE LYMPHOCYTES (AUTO) 0.6 10^3/uL (0.5-4.7); ABSOLUTE MONOCYTES (AUTO) 0.5 10^3/uL (0.1-1.4); ABSOLUTE NEUT (AUTO) 4.6 10^3/uL (1.7-8.2); BASOPHILS % (AUTO) 0.5 % (0-2); EOSINOPHILS % (AUTO) 0.1 % (0-6); HEMATOCRIT 27.6 % (36.0-47.0); LYMPHOCYTES % (AUTO) 10.2 % (13-45); MEAN CORPUSCULAR HEMOGLOBIN 36.1 pg (27.0-33.4); MEAN CORPUSCULAR HGB CONC 35.7 g/dL (32.0-36.0); PLATELET COUNT 109 10^3/uL (150-450); RED BLOOD COUNT 2.72 10^6/uL (3.72-5.28); RED CELL DISTRIBUTION WIDTH 13.6 % (11.5-14.0); SEGMENTED NEUTROPHILS % (AUTO) 80.2 % (42-78); TOTAL CELLS COUNTED % (AUTO) 100 %; WHITE BLOOD COUNT 5.8 10^3/uL (4.0-10.5)
[2019-06-15 07:28] LABS: CARBON DIOXIDE 29 mmol/L (22-30); CHLORIDE 100 mmol/L (98-107)
[2019-06-15 07:29] LABS: ANION GAP 4 (5-19)
[2019-06-15 07:31] LABS: HEMOGLOBIN 9.8 g/dL (12.0-15.5); MEAN CORPUSCULAR VOLUME 101 fl (80-97)
[2019-06-15] MEDS: LORATADINE 10 MG TABLET PO SCH (10:02)
[2019-06-15] MEDS: METFORMIN HCL 500 MG TABLET PO SCH ×2 (10:02→21:29)
[2019-06-15] MEDS: MAGNESIUM OXIDE 400 MG TABLET PO SCH (10:02)
[2019-06-15] MEDS: LEVETIRACETAM 1000 MG/NACL-ISO 1,000 MG/100 ML RTUPB IV SCH (10:03)
[2019-06-15] MEDS: PRASUGREL HCL 10 MG TABLET PO SCH (10:03)
[2019-06-15] MEDS: RANOLAZINE 500 MG TAB.SR.12H PO SCH ×2 (10:04→21:28)
[2019-06-15] MEDS: PAROXETINE HCL 20 MG TABLET PO SCH (15:35)
--- NOTE | 2019-06-15 18:04 | PDOC PROGRESS REPORT ---
Subjective Progress Note for:: 06/15/19 Subjective:: Patient more awake today. Patient states that her last seizure was about 6 months ago. Patient notes that she is scheduled to follow-up with her oncologist Dr. Davin Hester at [facility] for repeat evaluation of metastatic lung cancer to the brain. I spoke with bookkeeper receptionist at [employer] office who will send records and states that patient is scheduled to follow-up next week. She also states that patient has not had a head MRI since December 2018. Reason For Visit: SEIZURE LUNG CA W BRAIN METS Physical Exam Vital Signs: Temp Pulse Resp BP Pulse Ox 98.2 F 92 18 104/75 98 06/15/19 15:31 06/15/19 15:31 06/15/19 15:31 06/15/19 15:31 06/15/19 15:31 Intake & Output 06/14/19 06/15/19 06/16/19 06:59 06:59 06:59 Intake Total 600 2318 576 Output Total 1000 2150 1100 Balance -400 168 -524 Weight 79 kg 81.8 kg General appearance: PRESENT: no acute distress, cooperative Neck exam: ABSENT: JVD Respiratory exam: PRESENT: clear to auscultation lorna, symmetrical, unlabored. ABSENT: tachypnea, wheezes Cardiovascular exam: PRESENT: RRR, +S1, +S2. ABSENT: tachycardia GI/Abdominal exam: PRESENT: normal bowel sounds, soft. ABSENT: rebound, rigid, tenderness Neurological exam: PRESENT: alert, awake, oriented to person, oriented to place, oriented to time, oriented to situation, other - Appears fatigued Results Laboratory Results: 06/15/19 06:50 06/15/19 06:50 06/15/19 06/15/19 06:50 06:50 WBC 5.8 RBC 2.72 L Hgb 9.8 L D Hct 27.6 L MCV 101 H D MCH 36.1 H MCHC 35.7 RDW 13.6 Plt Count 109 L Seg Neutrophils % 80.2 H Sodium 132.7 L Potassium 3.9 Chloride 100 Carbon Dioxide 29 Anion Gap 4 L BUN 6 L Creatinine 0.56 Est GFR ( Amer) > 60 Glucose 189 H Calcium 8.4 06/13/19 06/13/19 22:35 22:35 Creatine Kinase 32 CK-MB (CK-2) 0.34 Troponin I < 0.012 Impressions: Chest X-Ray 06/13/19 00:00 IMPRESSION: Interstitial prominence. Peribronchial cuffing. Lungs otherwise grossly clear. No adverse change from prior copyright 2010 [employer] All Rights Reserved Head CT 06/13/19 00:00 IMPRESSION: 1. No acute hemorrhage or mass effect 2. Previous right parietal craniotomy with underlying right parietal changes. Please correlate with clinical history; cannot exclude recurrent/residual tumor on this exam. Head CTA 06/13/19 22:05 IMPRESSION: No evidence of flow significant stenosis/major arterial vessel occlusion, aneurysm, or dissection within the head or neck. Multiple pulmonary nodules. Most severe: 10.5 mm solid suspicious pulmonary nodule within the upper lobe detected on incomplete chest CT. Recommend immediate non-contrast Chest CT for further evaluation. These guidelines do not apply to immunocompromised patients and patients with cancer. Follow up in patients with significant comorbidities as clinically warranted. For lung cancer screening, adhere to Lung-RADS guidelines. Reference: Radiology. 2017; 284(1):228-43. Patchy groundglass opacity within the left upper lobe anterior segment, presumably infectious/inflammatory in etiology. TECHNICAL DOCUMENTATION: Quality ID # 436: Final reports with documentation of one or more dose reduction techniques (e.g., Automated exposure control, adjustment of the mA and/or kV according to patient size, use of iterative reconstruction technique) copyright 2010 [employer] All Rights Reserved Neck CTA 06/13/19 22:05 IMPRESSION: No evidence of flow significant stenosis/major arterial vessel occlusion, aneurysm, or dissection within the head or neck. Multiple pulmonary nodules. Most severe: 10.5 mm solid suspicious pulmonary nodule within the upper lobe detected on incomplete chest CT. Recommend immediate non-contrast Chest CT for further evaluation. These guidelines do not apply to immunocompromised patients and patients with cancer. Follow up in patients with significant comorbidities as clinically warranted. For lung cancer screening, adhere to Lung-RADS guidelines. Reference: Radiology. 2017; 284(1):228-43. Patchy groundglass opacity within the left upper lobe anterior segment, presumably infectious/inflammatory in etiology. 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 Primary manager generation is Dr. Davin Hester [facility]. I have called office and spoke to bookkeeper receptionist who states that patient is scheduled for follow-up next week. Last brain MRI according to bookkeeper receptionist was December 2018. I have requested records to be sent over. Consult placed for oncology Obtain MRI of the brain (3) Metabolic acidosis Is this a current diagnosis for this admission?: Yes Plan: Likely secondary to seizure but currently resolved (4) Anemia associated with chemotherapy Is this a current diagnosis for this admission?: Yes Plan: Iron studies showing elevated ferritin suggesting anemia of chronic disease but also does have underlying iron deficiency given low iron saturation of 8 Start on ferrous sulfate (5) Leukocytosis Qualifiers: Leukocytosis type: unspecified Qualified Code(s): D72.829 - Elevated white blood cell count, unspecified Is this a current diagnosis for this admission?: Yes Plan: Likely reactive secondary to seizure. Received antibiotics in the ER but no need to continue at this time as no evidence of pneumonia. Patient is still at risk of aspiration complications from seizure episode. We will monitor off antibiotics for now. - Time Time Spent with patient: 15-24 minutes
--- NOTE | 2019-06-15 20:37 | RADIOLOGY REPORT (SQ) ---
MRI of the brain with and without intravenous contrast: 06/15/2019 7:32 PM DENTURE PROCESSOR INDICATION: 58-year-old patient with seizures, concern for metastatic disease COMPARISON: CT the head from 06/13/2019 TECHNIQUE: Sagittal T1; axial diffusion, ADC, T2, FLAIR, gradient echo images through the brain were obtained without intravenous contrast administered. Postcontrast imaging was also obtained. FINDINGS: Evaluation is mildly limited by some motion artifact. There is moderate prominence of the cerebral sulci and ventricles, suggestive of cerebral atrophy. Moderate nonspecific periventricular hyperintense signal is also seen, which may reflect chronic microvascular ischemia. There is restricted diffusion seen at the right hippocampus. The cervicomedullary junction is unremarkable. The visualized orbits also appear unremarkable. No extra-axial fluid collection is seen. No midline shift or mass effect is seen. The visualized vascular flow voids appear normal. The cerebellopontine angles appear normal. No abnormal signal is seen to suggest acute hemorrhage. The aguilar-white matter differentiation is normal no abnormal enhancement is readily apparent though evaluation is significantly limited by motion artifact. There are changes of prior right parietal craniotomy noted. There is mild mucoperiosteal thickening of the ethmoid sinuses. IMPRESSION: 1. There is abnormal restricted diffusion seen at the right hippocampus. 2. Moderate cerebral atrophy and periventricular white matter changes are seen. 3. Postcontrast imaging is limited by significant motion artifact.
[2019-06-15] MEDS: LEVETIRACETAM 500 MG TABLET PO SCH (21:29)
[2019-06-15] MEDS: PROCHLORPERAZINE MALEATE 10 MG TABLET PO PRN (21:34)
[2019-06-16] MEDS: INSULIN LISPRO 100 UNIT/ML 3 ML VIAL SUBCUT SCH ×4 (04:56→19:21)
[2019-06-16] MEDS: HEPARIN SOD (PORCINE) 5,000 UNIT/ML 1 ML VIAL SUBCUT SCH ×3 (07:38→22:23)
--- NOTE | 2019-06-16 08:18 | PDOC CONSULTATION ---
Consultation Consult Date: 06/16/19 Provider Consulted: LEONEL BATISTA Consult reason:: Hematology/Oncology consultation was requested for patient with known lung cancer with brain mets. History of Present Illness Admission Date/PCP: 06/14/19 06:05 SHAUNA RÍOS NP History of Present Illness: DIEUDONNE FONSECA is a 58 year old female who follows with Drs. Hester and Jose in [place] for cancer treatments. She states that she was diagnosed about 15 months ago. She underwent brain surgery followed by radiation about 14 months ago. She states that she has had seizures in the past and can usually tell when they are coming on. She is on Keppra at home and tells me that she was on Dexamethasone at home as well. She has been "feeling bad" for about a week, but cannot describe how, other than feeling tired. She presented to the ED and had a tonic clonic seizure in the ED. MRI of the brain was limited, but does not mention any increased edema or obvious new tumor. Her Keppra dose has been increased, but she is not currently on any steroids. She states that she is planning to start chemo and radiation for her lung soon, but cannot tell me any details. Her is at bedside this morning, but does not provide any additional information. Past Medical History Cardiac Medical History: Reports: Myocardial Infarction, Hypertension Pulmonary Medical History: Reports: Asthma, Chronic Obstructive Pulmonary Diseas e (COPD) Endocrine Medical History: Reports: Diabetes Mellitus Type 2 Malignancy Medical History: Reports: Lung Cancer - Small cell, stage IV with bra in mets. Musculoskeltal Medical History: Reports: Arthritis Psychiatric Medical History: Reports: Depression Hematology: Reports: Anemia Past Surgical History Past Surgical History: Reports: Cardiac Catheterization - 7 stents, Cholecystectomy, Orthopedic Surgery, Other - Craniotomy for brain mets. Social History Information Source: Patient Smoking Status: Current Every Day Smoker Electronic Cigarette use?: No Frequency of Alcohol Use: None Hx Recreational Drug Use: No Drugs: None Past Social History Note: with 2 children. - Advance Directive Resuscitation Status: Do Not Resuscitate Family History Parental Family History Reviewed: Yes - Father of heart issues. Mother still living. Children Family History Reviewed: No Sibling(s) Family History Reviewed.: Yes - Brother with lung cancer Medication/Allergy Home Medications: Levetiracetam [Keppra] 750 mg PO Q12 08/09/18 Magnesium Oxide [Mag-Ox 400 mg Tablet] 400 mg PO DAILY 08/09/18 Metformin HCl 500 mg PO Q12 08/09/18 Paroxetine HCl [Paxil] 40 mg PO DAILY 08/09/18 Prasugrel HCl [Effient 10 mg Tablet] 10 mg PO DAILY 08/09/18 Prochlorperazine Maleate [Compazine 10 mg Tablet] 10 mg PO Q6HP PRN 08/09/18 Albuterol Sulfate [Ventolin 0.083% Neb 2.5 mg/3 ml Ampul] 1 vial NEB Q4 06/14/19 Albuterol Sulfate [Ventolin Hfa 8 gm Mdi (1 Mdi/ER Disp)] 2 puff IH Q4HP PRN 06/14/19 Loratadine [Allergy Relief] 10 mg PO DAILY 06/14/19 Meclizine HCl 25 mg PO TIDP PRN 06/14/19 Nitroglycerin [Nitrostat 0.4 mg (1/150 Gr) Tabs 25/Bottle] 1 tab SL Q5MP PRN 06/14/19 Ondansetron HCl [Zofran 8 mg Tablet] 8 mg PO Q8HP PRN 06/14/19 Ranolazine [Ranolazine ER] 500 mg PO Q12 06/14/19 Allergies/Adverse Reactions: No Known Allergies Allergy (Verified 06/14/19 19:06) Review of Systems Constitutional: PRESENT: headache(s). ABSENT: fever(s) Eyes: ABSENT: visual disturbances Ears: ABSENT: hearing changes Nose, Mouth, and Throat: PRESENT: headache(s) Cardiovascular: ABSENT: chest pain Respiratory: ABSENT: dyspnea Gastrointestinal: PRESENT: constipation Genitourinary: ABSENT: dysuria Integumentary: ABSENT: rash Neurological: PRESENT: as per HPI Hematologic/Lymphatic: ABSENT: easy bleeding Physical Exam Vital Signs: Temp Pulse Resp BP Pulse Ox 97.9 F 96 16 130/54 H 94 06/15/19 23:00 06/16/19 02:00 06/15/19 23:00 06/15/19 23:00 06/15/19 23:00 Intake & Output 06/15/19 06/16/19 06/17/19 06:59 06:59 06:59 Intake Total 2318 1038 Output Total 0774 1737 Balance 168 -637 Weight 81.8 kg 79.3 kg General appearance: PRESENT: no acute distress, well-developed, well-nourished Exam: 58 year old female. Able to converse and answer most questions. Head exam: PRESENT: atraumatic, normocephalic Eye exam: PRESENT: EOMI Mouth exam: PRESENT: other - Tongue deviates to the right. Neck exam: ABSENT: lymphadenopathy, tenderness Respiratory exam: PRESENT: wheezes Cardiovascular exam: PRESENT: RRR GI/Abdominal exam: PRESENT: soft. ABSENT: tenderness Extremities exam: ABSENT: pedal edema Neurological exam: PRESENT: alert, awake, other - Not fully oriented, not a good historian, but able to answer most questions Psychiatric exam: PRESENT: appropriate affect Skin exam: PRESENT: normal color Results Laboratory Results: 06/15/19 06:50 06/15/19 06:50 06/13/19 06/13/19 22:35 22:35 Creatine Kinase 32 CK-MB (CK-2) 0.34 Troponin I < 0.012 Impressions: Chest X-Ray 06/13/19 00:00 IMPRESSION: Interstitial prominence. Peribronchial cuffing. Lungs otherwise grossly clear. No adverse change from prior copyright 2010 [employer]- All Rights Reserved Head CT 06/13/19 00:00 IMPRESSION: 1. No acute hemorrhage or mass effect 2. Previous right parietal craniotomy with underlying right parietal changes. Please correlate with clinical history; cannot exclude recurrent/residual tumor on this exam. Head CTA 06/13/19 22:05 IMPRESSION: No evidence of flow significant stenosis/major arterial vessel occlusion, aneurysm, or dissection within the head or neck. Multiple pulmonary nodules. Most severe: 10.5 mm solid suspicious pulmonary nodule within the upper lobe detected on incomplete chest CT. Recommend immediate non-contrast Chest CT for further evaluation. These guidelines do not apply to immunocompromised patients and patients with cancer. Follow up in patients with significant comorbidities as clinically warranted. For lung cancer screening, adhere to Lung-RADS guidelines. Reference: Radiology. 2017; 284(1):228-43. Patchy groundglass opacity within the left upper lobe anterior segment, presumably infectious/inflammatory in etiology. TECHNICAL DOCUMENTATION: Quality ID # 436: Final reports with documentation of one or more dose reduction techniques (e.g., Automated exposure control, adjustment of the mA and/or kV according to patient size, use of iterative reconstruction technique) copyright 2010 [employer]- All Rights Reserved Neck CTA 06/13/19 22:05 IMPRESSION: No evidence of flow significant stenosis/major arterial vessel occlusion, aneurysm, or dissection within the head or neck. Multiple pulmonary nodules. Most severe: 10.5 mm solid suspicious pulmonary nodule within the upper lobe detected on incomplete chest CT. Recommend immediate non-contrast Chest CT for further evaluation. These guidelines do not apply to immunocompromised patients and patients with cancer. Follow up in patients with significant comorbidities as clinically warranted. For lung cancer screening, adhere to Lung-RADS guidelines. Reference: Radiology. 2017; 284(1):228-43. Patchy groundglass opacity within the left upper lobe anterior segment, presumably infectious/inflammatory in etiology. TECHNICAL DOCUMENTATION: Quality ID # 436: Final reports with documentation of one or more dose reduction techniques (e.g., Automated exposure control, adjustment of the mA and/or kV according to patient size, use of iterative reconstruction technique) copyright 2010 [employer]- All Rights Reserved Head MRI 06/15/19 00:00 IMPRESSION: 1. There is abnormal restricted diffusion seen at the right hippocampus. 2. Moderate cerebral atrophy and periventricular white matter changes are seen. 3. Postcontrast imaging is limited by significant motion artifact. Status: Image reviewed by me Assessment & Plan - Diagnosis (1) Adenocarcinoma of left lung Is this a current diagnosis for this admission?: Yes Plan: No treatment currently. She will discuss with Dr. Hetser after discharge. 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 Not sure if any further radiation is possible. She follows with Dr. Garcia in [place] for this. (3) Seizure Is this a current diagnosis for this admission?: Yes Plan: Her Keppra dose has been increased. I would add Dexamethasone 4 mg po BID. This may also help her appetite. This was discussed with Dr. Govea. - Plan Summary Plan Summary: Steroids may also help the wheezing in the chest and the poor appetite. She has Duonebs ordered. Her O2 sats appear stable.
[2019-06-16 09:20] LABS: ABSOLUTE LYMPHOCYTES (AUTO) 0.5 10^3/uL (0.5-4.7); ABSOLUTE MONOCYTES (AUTO) 0.7 10^3/uL (0.1-1.4); ABSOLUTE NEUT (AUTO) 5.9 10^3/uL (1.7-8.2); BASOPHILS % (AUTO) 0.1 % (0-2); HEMATOCRIT 30.2 % (36.0-47.0); LYMPHOCYTES % (AUTO) 7.3 % (13-45); MEAN CORPUSCULAR HEMOGLOBIN 35.8 pg (27.0-33.4); MEAN CORPUSCULAR HGB CONC 36.3 g/dL (32.0-36.0); MEAN CORPUSCULAR VOLUME 99 fl (80-97); MONOCYTES % (AUTO) 9.3 % (3-13); PLATELET COUNT 127 10^3/uL (150-450); RED BLOOD COUNT 3.06 10^6/uL (3.72-5.28); RED CELL DISTRIBUTION WIDTH 13.3 % (11.5-14.0); SEGMENTED NEUTROPHILS % (AUTO) 83.3 % (42-78); TOTAL CELLS COUNTED % (AUTO) 100 %; WHITE BLOOD COUNT 7.1 10^3/uL (4.0-10.5)
[2019-06-16 09:30] LABS: ANION GAP 10 (5-19); BLOOD UREA NITROGEN 10 mg/dL (7-20); CALCIUM 8.5 mg/dL (8.4-10.2); CARBON DIOXIDE 26 mmol/L (22-30); CHLORIDE 87 mmol/L (98-107); GLUCOSE 162 mg/dL (75-110); POTASSIUM 3.2 mmol/L (3.6-5.0)
[2019-06-16] MEDS: LORATADINE 10 MG TABLET PO SCH (09:57)
[2019-06-16] MEDS: LEVETIRACETAM 500 MG TABLET PO SCH ×2 (09:57→22:20)
[2019-06-16] MEDS: RANOLAZINE 500 MG TAB.SR.12H PO SCH ×2 (09:57→22:19)
[2019-06-16] MEDS: MAGNESIUM OXIDE 400 MG TABLET PO SCH (09:57)
[2019-06-16] MEDS: PAROXETINE HCL 20 MG TABLET PO SCH (09:57)
[2019-06-16] MEDS: METFORMIN HCL 500 MG TABLET PO SCH ×2 (09:57→22:18)
[2019-06-16] MEDS: PRASUGREL HCL 10 MG TABLET PO SCH (09:57)
[2019-06-16] MEDS ORDERED: FERROUS SULFATE 325 MG TABLET PO SCH (10:00)
[2019-06-16] MEDS: DEXAMETHASONE 4 MG TABLET PO SCH ×2 (10:47→22:19)
--- NOTE | 2019-06-16 13:30 | PDOC PROGRESS REPORT ---
Subjective Progress Note for:: 06/16/19 Subjective:: She was seen and examined. She is stable. She is awake and alert. She is tolerating diet. Sodium is lower today. MRI positive for stroke. Attempted to contact the daughter but went to voicemail. Reason For Visit: SEIZURE LUNG CA W BRAIN METS Physical Exam Vital Signs: Temp Pulse Resp BP Pulse Ox 99.3 F 83 18 149/59 H 95 06/16/19 11:34 06/16/19 11:34 06/16/19 11:34 06/16/19 11:34 06/16/19 11:34 Intake & Output 06/15/19 06/16/19 06/17/19 06:59 06:59 06:59 Intake Total 2318 1038 260 Output Total 2158 5365 1000 Balance 930 -977 -220 Weight 180 lb 5.41 oz 174 lb 13.225 oz Exam: Patient is no acute distress Alert oriented to time place person No anxiety or depression Head: atraumatic normocephalic Pupils: are equal reactive Neck: is supple and trachea is central no lymphadenopathy No pharyngeal erythema or exudates Heart: Regular rate and rhythm, no peripheral edema Lungs: clear to auscul, no respiratory distress Abdomen: nontender nondistended Neurological exam: unremarkable Musculoskeletal: No joint swelling or effusion chronic lower back pain and tenderness No suicidal or homicidal ideation Results Laboratory Results: 06/16/19 08:20 06/16/19 08:20 06/16/19 06/16/19 08:20 08:20 WBC 7.1 RBC 3.06 L Hgb 11.0 L Hct 30.2 L MCV 99 H MCH 35.8 H MCHC 36.3 H RDW 13.3 Plt Count 127 L Seg Neutrophils % 83.3 H Sodium 123.3 L Potassium 3.2 L Chloride 87 L Carbon Dioxide 26 Anion Gap 10 BUN 10 Creatinine 0.49 L Est GFR ( Amer) > 60 Glucose 162 H Calcium 8.5 06/13/19 06/13/19 22:35 22:35 Creatine Kinase 32 CK-MB (CK-2) 0.34 Troponin I < 0.012 Impressions: Chest X-Ray 06/13/19 00:00 IMPRESSION: Interstitial prominence. Peribronchial cuffing. Lungs otherwise grossly clear. No adverse change from prior copyright 2011 [employer]- All Rights Reserved Head CT 06/13/19 00:00 IMPRESSION: 1. No acute hemorrhage or mass effect 2. Previous right parietal craniotomy with underlying right parietal changes. Please correlate with clinical history; cannot exclude recurrent/residual tumor on this exam. Head CTA 06/13/19 22:05 IMPRESSION: No evidence of flow significant stenosis/major arterial vessel occlusion, aneurysm, or dissection within the head or neck. Multiple pulmonary nodules. Most severe: 10.5 mm solid suspicious pulmonary nodule within the upper lobe detected on incomplete chest CT. Recommend immediate non-contrast Chest CT for further evaluation. These guidelines do not apply to immunocompromised patients and patients with cancer. Follow up in patients with significant comorbidities as clinically warranted. For lung cancer screening, adhere to Lung-RADS guidelines. Reference: Radiology. 2017; 284(1):228-43. Patchy groundglass opacity within the left upper lobe anterior segment, presumably infectious/inflammatory in etiology. TECHNICAL DOCUMENTATION: Quality ID # 436: Final reports with documentation of one or more dose reduction techniques (e.g., Automated exposure control, adjustment of the mA and/or kV according to patient size, use of iterative reconstruction technique) copyright 2010 [employer]- All Rights Reserved Neck CTA 06/13/19 22:05 IMPRESSION: No evidence of flow significant stenosis/major arterial vessel occlusion, aneurysm, or dissection within the head or neck. Multiple pulmonary nodules. Most severe: 10.5 mm solid suspicious pulmonary nodule within the upper lobe detected on incomplete chest CT. Recommend immediate non-contrast Chest CT for further evaluation. These guidelines do not apply to immunocompromised patients and patients with cancer. Follow up in patients with significant comorbidities as clinically warranted. For lung cancer screening, adhere to Lung-RADS guidelines. Reference: Radiology. 2017; 284(1):228-43. Patchy groundglass opacity within the left upper lobe anterior segment, presumably infectious/inflammatory in etiology. TECHNICAL DOCUMENTATION: Quality ID # 436: Final reports with documentation of one or more dose reduction techniques (e.g., Automated exposure control, adjustment of the mA and/or kV according to patient size, use of iterative reconstruction technique) copyright 2010 [employer]- All Rights Reserved Head MRI 06/15/19 00:00 IMPRESSION: 1. There is abnormal restricted diffusion seen at the right hippocampus. 2. Moderate cerebral atrophy and periventricular white matter changes are seen. 3. Postcontrast imaging is limited by significant motion artifact. Assessment and Plan - Diagnosis (1) Stroke Is this a current diagnosis for this admission?: Yes Plan: MRI was positive for restricted diffusion to the right hippocampus most likely watershed stroke. CT angiogram of the head and neck unremarkable. Echocardiogram pending. Patient in sinus rhythm. She is on Effient. Will not start aspirin due to increased risk of bleeding. 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 Primary performance tester is Dr. Davin Hester [facility]. Dr. Carlson have called office and spoke to emblem maker who states that patient is scheduled for follow-up next week. L ast brain MRI according to emblem maker was December 2018. Oncology was consulted and started steroids. (3) Seizure Is this a current diagnosis for this admission?: Yes Plan: Likely secondary to known metastatic lung malignancy to the brain Keppra dose to increased from 750 to 1000 mg twice daily Patient is more awake today and postictal state has resolved (4) Metabolic acidosis Is this a current diagnosis for this admission?: Yes Plan: Likely secondary to seizure but currently resolved (5) Anemia associated with chemotherapy Is this a current diagnosis for this admission?: Yes Plan: Iron studies showing elevated ferritin 739. Stop ferrous sulfate (6) Leukocytosis Qualifiers: Leukocytosis type: unspecified Qualified Code(s): D72.829 - Elevated white blood cell count, unspecified Is this a current diagnosis for this admission?: Yes Plan: Likely reactive secondary to seizure. Received antibiotics in the ER but no need to continue at this time as no evidence of pneumonia. Patient is still at risk of aspiration complications from seizure episode. Continue to monitor off antibiotics for now. (7) Hyponatremia Is this a current diagnosis for this admission?: Yes Plan: Unclear etiology. Start IV normal saline. Check urine and plasma osmolality and urine sodium. Free water restriction. 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 Primary performance tester is Dr. Davin Hester [facility]. I have called office and spoke to emblem maker who states that patient is scheduled for follow-up next week. Last brain MRI according to emblem maker was December 2018. I have requested records to be sent over. Consult placed for oncology Obtain MRI of the brain (3) Metabolic acidosis Is this a current diagnosis for this admission?: Yes Plan: Likely secondary to seizure but currently resolved (4) Anemia associated with chemotherapy Is this a current diagnosis for this admission?: Yes Plan: Iron studies showing elevated ferritin suggesting anemia of chronic disease but also does have underlying iron deficiency given low iron saturation of 8 Start on ferrous sulfate (5) Leukocytosis Qualifiers: Leukocytosis type: unspecified Qualified Code(s): D72.829 - Elevated white blood cell count, unspecified Is this a current diagnosis for this admission?: Yes Plan: Likely reactive secondary to seizure. Received antibiotics in the ER but no need to continue at this time as no evidence of pneumonia. Patient is still at risk of aspiration complications from seizure episode. We will monitor off antibiotics for now. - Time Time Spent with patient: 15-24 minutes
[2019-06-16] MEDS ORDERED: POTASSIUM CHLORIDE 10 MEQ TABLET.ER PO ONE (14:00)
[2019-06-16] MEDS ORDERED: FAMOTIDINE 20 MG TABLET PO ONE (14:00)
[2019-06-16 16:06] LABS: ANION GAP 12 (5-19); BLOOD UREA NITROGEN 11 mg/dL (7-20); CALCIUM 8.6 mg/dL (8.4-10.2); CARBON DIOXIDE 24 mmol/L (22-30); CHLORIDE 86 mmol/L (98-107); GLUCOSE 171 mg/dL (75-110); POTASSIUM 3.1 mmol/L (3.6-5.0)
[2019-06-16] MEDS: NORMAL SALINE 1000 ML 1,000 ML IV PRN (17:27)
[2019-06-16] MEDS ORDERED: (PENDING PHARMACY ID) (Levetiracetam [Keppra] 750 MG) PO SCH (22:00)
[2019-06-16] MEDS: ATORVASTATIN CALCIUM 40 MG TABLET PO SCH (22:19)
[2019-06-17] MEDS: INSULIN LISPRO 100 UNIT/ML 3 ML VIAL SUBCUT SCH ×4 (00:50→17:30)
[2019-06-17] MEDS: NORMAL SALINE 1000 ML 1,000 ML IV PRN ×2 (03:41→14:58)
[2019-06-17 05:03] LABS: HEMATOCRIT 31.5 % (36.0-47.0); HEMOGLOBIN 11.3 g/dL (12.0-15.5); MEAN CORPUSCULAR HEMOGLOBIN 35.7 pg (27.0-33.4); MEAN CORPUSCULAR HGB CONC 36.1 g/dL (32.0-36.0); MEAN CORPUSCULAR VOLUME 99 fl (80-97); PLATELET COUNT 137 10^3/uL (150-450); RED BLOOD COUNT 3.18 10^6/uL (3.72-5.28); RED CELL DISTRIBUTION WIDTH 13.7 % (11.5-14.0); WHITE BLOOD COUNT 4.8 10^3/uL (4.0-10.5)
[2019-06-17 05:17] LABS: CHOLESTEROL 183.52 mg/dL (0-200); TRIGLYCERIDES 216 mg/dL (<150)
[2019-06-17 05:28] LABS: DIRECT LDL 132 mg/dL (<100)
[2019-06-17 05:37] LABS: VLDL CHOLESTEROL 43.2 mg/dL (10-31)
[2019-06-17] MEDS: HEPARIN SOD (PORCINE) 5,000 UNIT/ML 1 ML VIAL SUBCUT SCH ×3 (06:26→22:44)
--- NOTE | 2019-06-17 07:24 | PDOC PROGRESS REPORT ---
Subjective Progress Note for:: 06/17/19 Subjective:: Patient states that she is feeling better. is at bedside and states that she continues to have left sided weakness, but overall, has improved. Nurses report that she is swallowing without difficulty, but unable to stand or walk. Able to sit up on her own. ROS: No nausea. No dyspnea. Reason For Visit: ACUTE CVA Physical Exam Vital Signs: Temp Pulse Resp BP Pulse Ox 97.7 F 87 19 136/72 H 95 06/17/19 03:12 06/17/19 04:00 06/17/19 04:00 06/17/19 04:00 06/17/19 04:00 Intake & Output 06/16/19 06/17/19 06/18/19 06:59 06:59 06:59 Intake Total 1038 1496 Output Total 1675 1675 Balance -637 -179 Weight 79.3 kg 79.5 kg General appearance: PRESENT: no acute distress Head exam: PRESENT: normocephalic Respiratory exam: PRESENT: unlabored Neurological exam: PRESENT: alert, awake, other - Still confused at times. Not able to answer all questons. Psychiatric exam: PRESENT: appropriate affect Skin exam: PRESENT: normal color Results Laboratory Results: 06/17/19 04:48 06/16/19 14:51 06/16/19 06/16/19 06/16/19 08:20 08:20 14:51 WBC 7.1 RBC 3.06 L Hgb 11.0 L Hct 30.2 L MCV 99 H MCH 35.8 H MCHC 36.3 H RDW 13.3 Plt Count 127 L Seg Neutrophils % 83.3 H Sodium 123.3 L 121.5 L Potassium 3.2 L 3.1 L Chloride 87 L 86 L Carbon Dioxide 26 24 Anion Gap 10 12 BUN 10 11 Creatinine 0.49 L 0.47 L Est GFR ( Amer) > 60 > 60 Glucose 162 H 171 H Serum Osmolality Calcium 8.5 8.6 Triglycerides Cholesterol LDL Cholesterol Direct VLDL Cholesterol HDL Cholesterol Urine Osmolality 06/16/19 06/17/19 06/17/19 14:51 00:27 04:48 WBC RBC Hgb Hct MCV MCH MCHC RDW Plt Count Seg Neutrophils % Sodium Potassium Chloride Carbon Dioxide Anion Gap BUN Creatinine Est GFR ( Amer) Glucose Serum Osmolality 252 L Calcium Triglycerides 216 H Cholesterol 183.52 LDL Cholesterol Direct 132 H VLDL Cholesterol 43.2 H HDL Cholesterol 46 Urine Osmolality 820 06/17/19 04:48 WBC 4.8 RBC 3.18 L Hgb 11.3 L Hct 31.5 L MCV 99 H MCH 35.7 H MCHC 36.1 H RDW 13.7 Plt Count 137 L Seg Neutrophils % Sodium Potassium Chloride Carbon Dioxide Anion Gap BUN Creatinine Est GFR ( Amer) Glucose Serum Osmolality Calcium Triglycerides Cholesterol LDL Cholesterol Direct VLDL Cholesterol HDL Cholesterol Urine Osmolality 06/13/19 06/13/19 22:35 22:35 Creatine Kinase 32 CK-MB (CK-2) 0.34 Troponin I < 0.012 Impressions: Chest X-Ray 06/13/19 00:00 IMPRESSION: Interstitial prominence. Peribronchial cuffing. Lungs otherwise grossly clear. No adverse change from prior copyright 2010 [employer]- All Rights Reserved Head CT 06/13/19 00:00 IMPRESSION: 1. No acute hemorrhage or mass effect 2. Previous right parietal craniotomy with underlying right parietal changes. Please correlate with clinical history; cannot exclude recurrent/residual tumor on this exam. Head CTA 06/13/19 22:05 IMPRESSION: No evidence of flow significant stenosis/major arterial vessel occlusion, aneurysm, or dissection within the head or neck. Multiple pulmonary nodules. Most severe: 10.5 mm solid suspicious pulmonary nodule within the upper lobe detected on incomplete chest CT. Recommend immediate non-contrast Chest CT for further evaluation. These guidelines do not apply to immunocompromised patients and patients with cancer. Follow up in patients with significant comorbidities as clinically warranted. For lung cancer screening, adhere to Lung-RADS guidelines. Reference: Radiology. 2017; 284(1):228-43. Patchy groundglass opacity within the left upper lobe anterior segment, presumably infectious/inflammatory in etiology. TECHNICAL DOCUMENTATION: Quality ID # 436: Final reports with documentation of one or more dose reduction techniques (e.g., Automated exposure control, adjustment of the mA and/or kV according to patient size, use of iterative reconstruction technique) copyright 2010 [employer]- All Rights Reserved Neck CTA 06/13/19 22:05 IMPRESSION: No evidence of flow significant stenosis/major arterial vessel occlusion, aneurysm, or dissection within the head or neck. Multiple pulmonary nodules. Most severe: 10.5 mm solid suspicious pulmonary nodule within the upper lobe detected on incomplete chest CT. Recommend immediate non-contrast Chest CT for further evaluation. These guidelines do not apply to immunocompromised patients and patients with cancer. Follow up in patients with significant comorbidities as clinically warranted. For lung cancer screening, adhere to Lung-RADS guidelines. Reference: Radiology. 2017; 284(1):228-43. Patchy groundglass opacity within the left upper lobe anterior segment, presumably infectious/inflammatory in etiology. TECHNICAL DOCUMENTATION: Quality ID # 436: Final reports with documentation of one or more dose reduction techniques (e.g., Automated exposure control, adjustment of the mA and/or kV according to patient size, use of iterative reconstruction technique) copyright 2011 [employer]- All Rights Reserved Head MRI 06/15/19 00:00 IMPRESSION: 1. There is abnormal restricted diffusion seen at the right hippocampus. 2. Moderate cerebral atrophy and periventricular white matter changes are seen. 3. Postcontrast imaging is limited by significant motion artifact. Assessment & Plan - Diagnosis (1) Adenocarcinoma of left lung Is this a current diagnosis for this admission?: Yes Plan: Small Cell, treated about a year ago. May follow-up with primary oncologist as previously scheduled next week. 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 Symptoms and scans all indicate new CVA. (3) Seizure Is this a current diagnosis for this admission?: Yes Plan: On DEX and KEPPRA. Continue for now. - Time Time Spent with patient: 15-24 minutes - Plan Summary Plan Summary: Patient is scheduled to follow with primary oncologist next week. I will sign off. Please call again if needed.
[2019-06-17] MEDS: LEVETIRACETAM 500 MG TABLET PO SCH ×2 (10:30→22:43)
[2019-06-17] MEDS: RANOLAZINE 500 MG TAB.SR.12H PO SCH ×2 (10:30→22:43)
[2019-06-17] MEDS: MAGNESIUM OXIDE 400 MG TABLET PO SCH (10:30)
[2019-06-17] MEDS: METFORMIN HCL 500 MG TABLET PO SCH ×2 (10:30→22:43)
[2019-06-17] MEDS: PAROXETINE HCL 20 MG TABLET PO SCH (10:30)
[2019-06-17] MEDS: LORATADINE 10 MG TABLET PO SCH (10:31)
[2019-06-17] MEDS: DEXAMETHASONE 4 MG TABLET PO SCH (10:31)
[2019-06-17] MEDS: PRASUGREL HCL 10 MG TABLET PO SCH (10:34)
--- NOTE | 2019-06-17 14:47 | PDOC PROGRESS REPORT ---
Subjective Subjective:: She was seen and examined. She is stable. She is awake and alert. She is tolerating diet. Sodium is pending for today. Echocardiogram is pending. Reason For Visit: ACUTE CVA Physical Exam Vital Signs: Temp Pulse Resp BP Pulse Ox 98.4 F 95 18 138/72 H 96 06/17/19 11:37 06/17/19 14:00 06/17/19 12:55 06/17/19 12:55 06/17/19 12:55 Intake & Output 06/16/19 06/17/19 06/18/19 06:59 06:59 06:59 Intake Total 1038 1496 120 Output Total 1675 1675 400 Balance -212 -179 -062 Weight 174 lb 13.225 oz 175 lb 4.28 oz Exam: Patient is no acute distress Alert oriented to time place person No anxiety or depression Head: atraumatic normocephalic Pupils: are equal reactive Neck: is supple and trachea is central no lymphadenopathy No pharyngeal erythema or exudates Heart: Regular rate and rhythm, no peripheral edema Lungs: clear to auscul, no respiratory distress Abdomen: nontender nondistended Neurological exam: unremarkable Musculoskeletal: No joint swelling or effusion chronic lower back pain and tenderness No suicidal or homicidal ideation Results Laboratory Results: 06/17/19 04:48 06/16/19 14:51 06/16/19 06/16/19 06/17/19 14:51 14:51 00:27 WBC RBC Hgb Hct MCV MCH MCHC RDW Plt Count Sodium 121.5 L Potassium 3.1 L Chloride 86 L Carbon Dioxide 24 Anion Gap 12 BUN 11 Creatinine 0.47 L Est GFR ( Amer) > 60 Glucose 171 H Serum Osmolality 252 L Calcium 8.6 Triglycerides Cholesterol LDL Cholesterol Direct VLDL Cholesterol HDL Cholesterol Urine Osmolality 820 06/17/19 06/17/19 04:48 04:48 WBC 4.8 RBC 3.18 L Hgb 11.3 L Hct 31.5 L MCV 99 H MCH 35.7 H MCHC 36.1 H RDW 13.7 Plt Count 137 L Sodium Potassium Chloride Carbon Dioxide Anion Gap BUN Creatinine Est GFR ( Amer) Glucose Serum Osmolality Calcium Triglycerides 216 H Cholesterol 183.52 LDL Cholesterol Direct 132 H VLDL Cholesterol 43.2 H HDL Cholesterol 46 Urine Osmolality 06/13/19 06/13/19 22:35 22:35 Creatine Kinase 32 CK-MB (CK-2) 0.34 Troponin I < 0.012 Impressions: Chest X-Ray 06/13/19 00:00 IMPRESSION: Interstitial prominence. Peribronchial cuffing. Lungs otherwise grossly clear. No adverse change from prior copyright 2010 [employer]- All Rights Reserved Head CT 06/13/19 00:00 IMPRESSION: 1. No acute hemorrhage or mass effect 2. Previous right parietal craniotomy with underlying right parietal changes. Please correlate with clinical history; cannot exclude recurrent/residual tumor on this exam. Head CTA 06/13/19 22:05 IMPRESSION: No evidence of flow significant stenosis/major arterial vessel occlusion, aneurysm, or dissection within the head or neck. Multiple pulmonary nodules. Most severe: 10.5 mm solid suspicious pulmonary nodule within the upper lobe detected on incomplete chest CT. Recommend immediate non-contrast Chest CT for further evaluation. These guidelines do not apply to immunocompromised patients and patients with cancer. Follow up in patients with significant comorbidities as clinically warranted. For lung cancer screening, adhere to Lung-RADS guidelines. Reference: Radiology. 2017; 284(1):228-43. Patchy groundglass opacity within the left upper lobe anterior segment, presumably infectious/inflammatory in etiology. TECHNICAL DOCUMENTATION: Quality ID # 436: Final reports with documentation of one or more dose reduction techniques (e.g., Automated exposure control, adjustment of the mA and/or kV according to patient size, use of iterative reconstruction technique) copyright 2010 [employer]- All Rights Reserved Neck CTA 06/13/19 22:05 IMPRESSION: No evidence of flow significant stenosis/major arterial vessel occlusion, aneurysm, or dissection within the head or neck. Multiple pulmonary nodules. Most severe: 10.5 mm solid suspicious pulmonary nodule within the upper lobe detected on incomplete chest CT. Recommend immediate non-contrast Chest CT for further evaluation. These guidelines do not apply to immunocompromised patients and patients with cancer. Follow up in patients with significant comorbidities as clinically warranted. For lung cancer screening, adhere to Lung-RADS guidelines. Reference: Radiology. 2017; 284(1):228-43. Patchy groundglass opacity within the left upper lobe anterior segment, presumably infectious/inflammatory in etiology. TECHNICAL DOCUMENTATION: Quality ID # 436: Final reports with documentation of one or more dose reduction techniques (e.g., Automated exposure control, adjustment of the mA and/or kV according to patient size, use of iterative reconstruction technique) copyright 2010 [employer]- All Rights Reserved Head MRI 06/15/19 00:00 IMPRESSION: 1. There is abnormal restricted diffusion seen at the right hippocampus. 2. Moderate cerebral atrophy and periventricular white matter changes are seen. 3. Postcontrast imaging is limited by significant motion artifact. Assessment and Plan - Diagnosis (1) Stroke Is this a current diagnosis for this admission?: Yes Plan: MRI was positive for restricted diffusion to the right hippocampus most likely watershed stroke. CT angiogram of the head and neck unremarkable. Echocardiogram still pending. Patient in sinus rhythm. She is on Effient. We did not start aspirin due to increased risk of bleeding. 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 Primary environmental scientists is Dr. Davin Hester [facility]. Dr. Carlson have called office and spoke to coin wrapping machine operator who states that patient is scheduled for follow-up next week. L ast brain MRI according to coin wrapping machine operator was December 2018. Oncology was consulted and started steroids. (3) Seizure Is this a current diagnosis for this admission?: Yes Plan: Likely secondary to known metastatic lung malignancy to the brain Keppra dose to increased from 750 to 1000 mg twice daily Patient is more awake today and postictal state has resolved (4) Metabolic acidosis Is this a current diagnosis for this admission?: Yes Plan: Likely secondary to seizure but currently resolved (5) Anemia associated with chemotherapy Is this a current diagnosis for this admission?: Yes Plan: Iron studies showing elevated ferritin 739. Stopped ferrous sulfate (6) Leukocytosis Qualifiers: Leukocytosis type: unspecified Qualified Code(s): D72.829 - Elevated white blood cell count, unspecified Is this a current diagnosis for this admission?: Yes Plan: Likely reactive secondary to seizure. Received antibiotics in the ER but no need to continue at this time as no evidence of pneumonia. Patient is still at risk of aspiration complications from seizure episode. Currently resolved. (7) Hyponatremia Is this a current diagnosis for this admission?: Yes Plan: Unclear etiology. Continue IV normal saline. urine osmolality is 820 and landen sma osmolality 252 and urine sodium 125 indicating probably SIADH. Free water restriction. Monitor sodium levels. 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 Primary environmental scientists is Dr. Davin Hester [facility]. I have called office and spoke to coin wrapping machine operator who states that patient is scheduled for follow-up next week. Last brain MRI according to coin wrapping machine operator was December 2018. I have requested records to be sent over. Consult placed for oncology Obtain MRI of the brain (3) Metabolic acidosis Is this a current diagnosis for this admission?: Yes Plan: Likely secondary to seizure but currently resolved (4) Anemia associated with chemotherapy Is this a current diagnosis for this admission?: Yes Plan: Iron studies showing elevated ferritin suggesting anemia of chronic disease but also does have underlying iron deficiency given low iron saturation of 8 Start on ferrous sulfate (5) Leukocytosis Qualifiers: Leukocytosis type: unspecified Qualified Code(s): D72.829 - Elevated white blood cell count, unspecified Is this a current diagnosis for this admission?: Yes Plan: Likely reactive secondary to seizure. Received antibiotics in the ER but no need to continue at this time as no evidence of pneumonia. Patient is still at risk of aspiration complications from seizure episode. We will monitor off antibiotics for now. - Time Time Spent with patient: 15-24 minutes
[2019-06-17 15:53] LABS: ANION GAP 10 (5-19); BLOOD UREA NITROGEN 17 mg/dL (7-20); CALCIUM 8.4 mg/dL (8.4-10.2); CARBON DIOXIDE 21 mmol/L (22-30); CHLORIDE 90 mmol/L (98-107); GLUCOSE 188 mg/dL (75-110); POTASSIUM 3.7 mmol/L (3.6-5.0)
[2019-06-17] MEDS: ATORVASTATIN CALCIUM 40 MG TABLET PO SCH (22:43)
[2019-06-18] MEDS: INSULIN LISPRO 100 UNIT/ML 3 ML VIAL SUBCUT SCH ×4 (00:47→17:34)
[2019-06-18] MEDS: NORMAL SALINE 1000 ML 1,000 ML IV PRN (01:54)
[2019-06-18] MEDS: HEPARIN SOD (PORCINE) 5,000 UNIT/ML 1 ML VIAL SUBCUT SCH ×3 (05:10→22:05)
[2019-06-18 05:44] LABS: HEMATOCRIT 30.1 % (36.0-47.0); HEMOGLOBIN 10.9 g/dL (12.0-15.5); MEAN CORPUSCULAR HEMOGLOBIN 35.9 pg (27.0-33.4); MEAN CORPUSCULAR HGB CONC 36.3 g/dL (32.0-36.0); MEAN CORPUSCULAR VOLUME 99 fl (80-97); PLATELET COUNT 149 10^3/uL (150-450); RED BLOOD COUNT 3.04 10^6/uL (3.72-5.28); RED CELL DISTRIBUTION WIDTH 13.6 % (11.5-14.0); WHITE BLOOD COUNT 6.5 10^3/uL (4.0-10.5)
[2019-06-18] MEDS: PAROXETINE HCL 20 MG TABLET PO SCH (10:07)
[2019-06-18] MEDS: LEVETIRACETAM 500 MG TABLET PO SCH ×2 (10:08→22:03)
[2019-06-18] MEDS: MAGNESIUM OXIDE 400 MG TABLET PO SCH (10:09)
[2019-06-18] MEDS: METFORMIN HCL 500 MG TABLET PO SCH ×2 (10:09→22:04)
[2019-06-18] MEDS: DEXAMETHASONE 4 MG TABLET PO SCH (10:09)
[2019-06-18] MEDS: RANOLAZINE 500 MG TAB.SR.12H PO SCH ×2 (10:09→22:04)
[2019-06-18] MEDS: LORATADINE 10 MG TABLET PO SCH (10:09)
[2019-06-18] MEDS: PRASUGREL HCL 10 MG TABLET PO SCH (10:10)
[2019-06-18] MEDS: SODIUM CHLORIDE 1 GM TABLET PO SCH ×2 (10:22→17:50)
[2019-06-18 11:03] LABS: ANION GAP 11 (5-19); BLOOD UREA NITROGEN 18 mg/dL (7-20); CALCIUM 7.8 mg/dL (8.4-10.2); CARBON DIOXIDE 18 mmol/L (22-30); CHLORIDE 93 mmol/L (98-107); GLUCOSE 149 mg/dL (75-110); POTASSIUM 3.6 mmol/L (3.6-5.0)
--- NOTE | 2019-06-18 14:40 | PDOC PROGRESS REPORT ---
Subjective Progress Note for:: 06/18/19 Subjective:: 06/17/2019: She was seen and examined. She is stable. She is awake and alert. She is tolerating diet. Sodium is pending for today. Echocardiogram is pending. 06/18/2019: Patient was seen and examined. Continues to be stable clinically. Awake and alert. Mental status slightly better. Tolerating diet. Sodium is still low at 121. Echocardiogram still pending. Reason For Visit: ACUTE CVA Physical Exam Vital Signs: Temp Pulse Resp BP Pulse Ox 98.0 F 79 16 102/38 L 98 06/18/19 12:36 06/18/19 12:36 06/18/19 12:36 06/18/19 12:36 06/18/19 12:36 Intake & Output 06/17/19 06/18/19 06/19/19 06:59 06:59 06:59 Intake Total 1496 2360 118 Output Total 1675 1725 150 Balance -179 635 -32 Weight 175 lb 4.28 oz 179 lb 10.828 oz Exam: Patient is no acute distress Alert oriented to time place person No anxiety or depression Head: atraumatic normocephalic Pupils: are equal reactive Neck: is supple and trachea is central no lymphadenopathy No pharyngeal erythema or exudates Heart: Regular rate and rhythm, no peripheral edema Lungs: clear to auscul, no respiratory distress Abdomen: nontender nondistended Neurological exam: unremarkable Musculoskeletal: No joint swelling or effusion chronic lower back pain and tenderness No suicidal or homicidal ideation Results Laboratory Results: 06/18/19 04:45 06/18/19 08:50 06/17/19 06/18/19 06/18/19 15:17 04:45 08:50 WBC 6.5 RBC 3.04 L Hgb 10.9 L Hct 30.1 L MCV 99 H MCH 35.9 H MCHC 36.3 H RDW 13.6 Plt Count 149 L Sodium 121.1 L 121.5 L Potassium 3.7 3.6 Chloride 90 L 93 L Carbon Dioxide 21 L 18 L Anion Gap 10 11 BUN 17 18 Creatinine 0.63 0.52 Est GFR ( Amer) > 60 > 60 Glucose 188 H 149 H Calcium 8.4 7.8 L 06/13/19 06/13/19 22:35 22:35 Creatine Kinase 32 CK-MB (CK-2) 0.34 Troponin I < 0.012 Impressions: Chest X-Ray 06/13/19 00:00 IMPRESSION: Interstitial prominence. Peribronchial cuffing. Lungs otherwise grossly clear. No adverse change from prior copyright 2010 [employer]- All Rights Reserved Head CT 06/13/19 00:00 IMPRESSION: 1. No acute hemorrhage or mass effect 2. Previous right parietal craniotomy with underlying right parietal changes. Please correlate with clinical history; cannot exclude recurrent/residual tumor on this exam. Head CTA 06/13/19 22:05 IMPRESSION: No evidence of flow significant stenosis/major arterial vessel occlusion, aneurysm, or dissection within the head or neck. Multiple pulmonary nodules. Most severe: 10.5 mm solid suspicious pulmonary nodule within the upper lobe detected on incomplete chest CT. Recommend immediate non-contrast Chest CT for further evaluation. These guidelines do not apply to immunocompromised patients and patients with cancer. Follow up in patients with significant comorbidities as clinically warranted. For lung cancer screening, adhere to Lung-RADS guidelines. Reference: Radiology. 2017; 284(1):228-43. Patchy groundglass opacity within the left upper lobe anterior segment, presumably infectious/inflammatory in etiology. TECHNICAL DOCUMENTATION: Quality ID # 436: Final reports with documentation of one or more dose reduction techniques (e.g., Automated exposure control, adjustment of the mA and/or kV according to patient size, use of iterative reconstruction technique) copyright 2010 [employer]- All Rights Reserved Neck CTA 06/13/19 22:05 IMPRESSION: No evidence of flow significant stenosis/major arterial vessel occlusion, aneurysm, or dissection within the head or neck. Multiple pulmonary nodules. Most severe: 10.5 mm solid suspicious pulmonary nodule within the upper lobe detected on incomplete chest CT. Recommend immediate non-contrast Chest CT for further evaluation. These guidelines do not apply to immunocompromised patients and patients with cancer. Follow up in patients with significant comorbidities as clinically warranted. For lung cancer screening, adhere to Lung-RADS guidelines. Reference: Radiology. 2017; 284(1):228-43. Patchy groundglass opacity within the left upper lobe anterior segment, presumably infectious/inflammatory in etiology. TECHNICAL DOCUMENTATION: Quality ID # 436: Final reports with documentation of one or more dose reduction techniques (e.g., Automated exposure control, adjustment of the mA and/or kV according to patient size, use of iterative reconstruction technique) copyright 2010 [employer]- All Rights Reserved Head MRI 06/15/19 00:00 IMPRESSION: 1. There is abnormal restricted diffusion seen at the right hippocampus. 2. Moderate cerebral atrophy and periventricular white matter changes are seen. 3. Postcontrast imaging is limited by significant motion artifact. Assessment and Plan - Diagnosis (1) Stroke Is this a current diagnosis for this admission?: Yes Plan: MRI was positive for restricted diffusion to the right hippocampus most likely watershed stroke. CT angiogram of the head and neck unremarkable. Echocardiogram still pending. Patient in sinus rhythm. She is on Effient. We did not start aspirin due to increased risk of bleeding. (2) Hyponatremia Is this a current diagnosis for this admission?: Yes Plan: Unclear etiology. Continue IV normal saline. urine osmolality is 820 and plasma osmolality 252 and urine sodium 125. Random cortisol level is 3.14. Add Florinef. Continue free water restriction. Monitor sodium levels. 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 Primary feed blender is Dr. Davin Hester [facility]. Dr. Carlson have called office and spoke to weekend receptionist who states that patient is scheduled for follow-up next week. L ast brain MRI according to weekend receptionist was December 2018. Oncology was consulted and started steroids. 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 Stopped ferrous sulfate (7) Leukocytosis Qualifiers: Leukocytosis type: unspecified Qualified Code(s): D72.829 - Elevated white blood cell count, unspecified Is this a current diagnosis for this admission?: Yes Plan: Likely reactive secondary to seizure. Received antibiotics in the ER but no need to continue at this time as no evidence of pneumonia. Patient is still at risk of aspiration complications from seizure episode. Currently resolved. 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 Primary feed blender is Dr. Davin Hester [facility]. I have called office and spoke to weekend receptionist who states that patient is scheduled for follow-up next week. Last brain MRI according to weekend receptionist was December 2018. I have requested records to be sent over. Consult placed for oncology Obtain MRI of the brain (3) Metabolic acidosis Is this a current diagnosis for this admission?: Yes Plan: Likely secondary to seizure but currently resolved (4) Anemia associated with chemotherapy Is this a current diagnosis for this admission?: Yes Plan: Iron studies showing elevated ferritin suggesting anemia of chronic disease but also does have underlying iron deficiency given low iron saturation of 8 Start on ferrous sulfate (5) Leukocytosis Qualifiers: Leukocytosis type: unspecified Qualified Code(s): D72.829 - Elevated white blood cell count, unspecified Is this a current diagnosis for this admission?: Yes Plan: Likely reactive secondary to seizure. Received antibiotics in the ER but no need to continue at this time as no evidence of pneumonia. Patient is still at risk of aspiration complications from seizure episode. We will monitor off antibiotics for now. - Time Time Spent with patient: 15-24 minutes
[2019-06-18 17:22] LABS: ANION GAP 10 (5-19); BLOOD UREA NITROGEN 18 mg/dL (7-20); CARBON DIOXIDE 21 mmol/L (22-30); CHLORIDE 90 mmol/L (98-107); GLUCOSE 197 mg/dL (75-110); POTASSIUM 3.9 mmol/L (3.6-5.0)
[2019-06-18] MEDS: FLUDROCORTISONE ACETATE 0.1 MG TABLET PO SCH (17:50)
--- NOTE | 2019-06-18 18:27 | XCELERA REPORT ---
[address] [address] Transthoracic Echocardiogram Report Name: DIEUDONNE FONSECA Age: 58 yrs Gender: Female : 1960 Patient Status: Inpatient Patient Location: [address] [place], [place] [id number] Study Date: 06/16/2019 08:47 PM Height: 59 in Weight: 174 lb BSA: 1.7 m2 Reason For Study: stroke Ordering Physician: JAYASHREE HALE Performed By: Karen Leong Interpretation Summary Study performed by JS and NF. No valvular vegetations seen in AV, MV, TV and no ASD, no LV apical clot and no LA myxoma. Small post peric effusion. Mild calcified aortic root not enlarged Mild non-stenotic calcific AV disease with ?3 cusps, no AR. Mild mitral annular calcification, No MS, no MVP, mild eccentric MV with No LA enlargement by M-Mode. Mild asymmetric hypertrophy of the IVS, with no LVOT gradient. Normal LVEF 60- 65%, with no LVDD. Except for basal PW hypokinesis, no other regional wall motion abnormality. Mild TR with RVSP extrapolated to 32mm Hg (RAP 3mm Hg), mild pulm hypertension, with no RH enlargement. MMode/2D Measurements & Calculations RVDd: 2.0 cm LVIDd: 3.6 cm FS: 31.3 % Ao root diam: 2.9 cm IVSd: 1.1 cm LVIDs: 2.5 cm EDV(Teich): 53.5 ml LVPWd: 0.91 cm ESV(Teich): 21.4 ml Ao root area: 6.7 cm2 LA dimension: 2.8 cm EF(Teich): 60.1 % Doppler Measurements & Calculations MV E max whitney: MV P1/2t max whitney: Ao V2 max: LV V1 max P.4 cm/sec 89.0 cm/sec 124.2 cm/sec 3.1 mmHg MV A max whitney: MV P1/2t: 42.3 msec Ao max P.2 mmHg LV V1 max: 67.1 cm/sec MVA(P1/2t): 5.2 cm2 87.9 cm/sec MV E/A: 1.3 MV dec slope: 616.8 cm/sec2 MV dec time: 0.17 sec PA V2 max: TR max whitney: MV P1/2t-pr_phl: 77.9 cm/sec 268.8 cm/sec 42.3 msec PA max PG: TR max P.9 mmHg 2.5 mmHg I WMSI = 1.06 % Normal = 94 Segments Size X - Cannot 2 - 4 - 1-2 small Interpret 1 - Normal Hypokinetic 3 - AkineticDyskinetic 3-5 moderate 5 - 6-14 large Aneurysmal 15-16 diffuse : JAYASHREE HALE, Adriel
[2019-06-18] MEDS: MECLIZINE HCL 25 MG TABLET PO PRN (22:04)
[2019-06-18] MEDS: ATORVASTATIN CALCIUM 40 MG TABLET PO SCH (22:04)
[2019-06-18] MEDS ORDERED: INSULIN LISPRO 100 UNIT/ML 3 ML VIAL ONE (23:41)
[2019-06-18] MEDS ORDERED: INSULIN LISPRO 100 UNIT/ML 3 ML VIAL SUBCUT ONE (23:59)
[2019-06-19] MEDS: HEPARIN SOD (PORCINE) 5,000 UNIT/ML 1 ML VIAL SUBCUT SCH (05:07)
[2019-06-19 06:10] LABS: HEMATOCRIT 31.9 % (36.0-47.0); HEMOGLOBIN 11.7 g/dL (12.0-15.5); MEAN CORPUSCULAR HEMOGLOBIN 35.7 pg (27.0-33.4); MEAN CORPUSCULAR HGB CONC 36.6 g/dL (32.0-36.0); MEAN CORPUSCULAR VOLUME 98 fl (80-97); PLATELET COUNT 169 10^3/uL (150-450); RED BLOOD COUNT 3.26 10^6/uL (3.72-5.28); RED CELL DISTRIBUTION WIDTH 13.8 % (11.5-14.0); WHITE BLOOD COUNT 9.3 10^3/uL (4.0-10.5)
[2019-06-19 06:27] LABS: OSMOLALITY,URINE 418 mOsm/kg (300-900)
[2019-06-19 06:33] LABS: URINE SODIUM 80 mmol/L (30-90)
[2019-06-19] MEDS ORDERED: INSULIN LISPRO 100 UNIT/ML 3 ML VIAL SUBCUT SCH (08:00)
[2019-06-19] MEDS: RANOLAZINE 500 MG TAB.SR.12H PO SCH (09:34)
[2019-06-19] MEDS: METFORMIN HCL 500 MG TABLET PO SCH (09:34)
[2019-06-19] MEDS: LORATADINE 10 MG TABLET PO SCH (09:34)
[2019-06-19] MEDS: LEVETIRACETAM 500 MG TABLET PO SCH (09:34)
[2019-06-19] MEDS: DEXAMETHASONE 4 MG TABLET PO SCH (09:35)
[2019-06-19] MEDS: MAGNESIUM OXIDE 400 MG TABLET PO SCH (09:35)
[2019-06-19] MEDS: PAROXETINE HCL 20 MG TABLET PO SCH (09:35)
[2019-06-19 09:36] LABS: ANION GAP 9 (5-19); BLOOD UREA NITROGEN 17 mg/dL (7-20); CALCIUM 8.2 mg/dL (8.4-10.2); CARBON DIOXIDE 23 mmol/L (22-30); CHLORIDE 93 mmol/L (98-107); GLUCOSE 156 mg/dL (75-110); POTASSIUM 3.5 mmol/L (3.6-5.0)
[2019-06-19] MEDS: PRASUGREL HCL 10 MG TABLET PO SCH (09:37)
[2019-06-19] MEDS: SODIUM CHLORIDE 1 GM TABLET PO SCH (09:37)
[2019-06-19] MEDS: FLUDROCORTISONE ACETATE 0.1 MG TABLET PO SCH (09:37)
--- NOTE | 2019-06-19 13:00 | PDOC DISCHARGE SUMMARY ---
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 Is this a current diagnosis for this admission?: Yes (4) Seizure Is this a current diagnosis for this admission?: Yes (5) Metabolic acidosis Is this a current diagnosis for this admission?: Yes (6) Anemia associated with chemotherapy Is this a current diagnosis for this admission?: Yes (7) Leukocytosis Is this a current diagnosis for this admission?: Yes - Assessment Summary: (1) Seizure Is this a current diagnosis for this admission?: Yes Plan: Likely secondary to known metastatic lung malignancy to the brain Keppra dose to increased from 750 to 1000 mg twice daily Patient is more awake today and postictal state has resolved (2) 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 Primary voltage tester is Dr. Davin Hester [facility]. I have called office and spoke to sales receptionist who states that patient is scheduled for follow-up next week. Last brain MRI according to sales receptionist was December 2018. I have requested records to be sent over. Consult placed for oncology Obtain MRI of the brain (3) Metabolic acidosis Is this a current diagnosis for this admission?: Yes Plan: Likely secondary to seizure but currently resolved (4) Anemia associated with chemotherapy Is this a current diagnosis for this admission?: Yes Plan: Iron studies showing elevated ferritin suggesting anemia of chronic disease but also does have underlying iron deficiency given low iron saturation of 8 Start on ferrous sulfate (5) Leukocytosis Qualifiers: Leukocytosis type: unspecified Qualified Code(s): D72.829 - Elevated white blood cell count, unspecified Is this a current diagnosis for this admission?: Yes Plan: Likely reactive secondary to seizure. Received antibiotics in the ER but no need to continue at this time as no evidence of pneumonia. Patient is still at risk of aspiration complications from seizure episode. We will monitor off antibiotics for now. - Time Time Spent with patient: 15-24 minutes - Additional Information Resuscitation Status: Do Not Resuscitate Referrals: SHAUNA RÍOS NP [Primary Care Provider] - Follow up as needed Prescriptions: Dexamethasone [Decadron 4 mg Tablet] 4 mg PO DAILY #7 tablet Ipratropium/Albuterol Sulfate [Duoneb 3 ml Ampul] 3 ml NEB Q6HP PRN #90 vial.neb PRN Reason: Fludrocortisone Acetate [Florinef 0.1 mg Tablet] 0.05 mg PO DAILY #30 tablet Metformin HCl [Glucophage 500 mg Tablet] 1,000 mg PO Q12 #60 tablet Insulin Glargine,Hum.rec.anlog [Lantus Insulin 100 Unit/mL Insulin Pen] 5 unit SUBCUT QHS #10 ml Atorvastatin Calcium [Lipitor 40 mg Tablet] 40 mg PO QHS #30 tablet Sodium Chloride [Sodium Chloride 1 gm Tablet] 1 gm PO BID #30 tablet Home Medications: Levetiracetam [Keppra] 750 mg PO Q12 08/09/18 Magnesium Oxide [Mag-Ox 400 mg Tablet] 400 mg PO DAILY 08/09/18 Paroxetine HCl [Paxil] 40 mg PO DAILY 08/09/18 Prasugrel HCl [Effient 10 mg Tablet] 10 mg PO DAILY 08/09/18 Prochlorperazine Maleate [Compazine 10 mg Tablet] 10 mg PO Q6HP PRN 08/09/18 Albuterol Sulfate [Ventolin 0.083% Neb 2.5 mg/3 mL Ampul] 1 vial NEB Q4 06/14/19 Albuterol Sulfate [Ventolin Hfa 8 gm Mdi (1 Mdi/ER Disp)] 2 puff IH Q4HP PRN 06/14/19 Loratadine [Allergy Relief] 10 mg PO DAILY 06/14/19 Meclizine HCl 25 mg PO TIDP PRN 06/14/19 Nitroglycerin [Nitrostat 0.4 mg (1/150 Gr) Tabs 25/Bottle] 1 tab SL Q5MP PRN 06/14/19 Ondansetron HCl [Zofran 8 mg Tablet] 8 mg PO Q8HP PRN 06/14/19 Ranolazine [Ranolazine ER] 500 mg PO Q12 06/14/19 Atorvastatin Calcium [Lipitor 40 mg Tablet] 40 mg PO QHS #30 tablet 06/19/19 Dexamethasone [Decadron 4 mg Tablet] 4 mg PO DAILY #7 tablet 06/19/19 Fludrocortisone Acetate [Florinef 0.1 mg Tablet] 0.05 mg PO DAILY #30 tablet 06/19/19 Insulin Glargine,Hum.rec.anlog [Lantus Insulin 100 Unit/mL Insulin Pen] 5 unit SUBCUT QHS #10 ml 06/19/19 Ipratropium/Albuterol Sulfate [Duoneb 3 ml Ampul] 3 ml NEB Q6HP PRN #90 vial.neb 06/19/19 Metformin HCl [Glucophage 500 mg Tablet] 1,000 mg PO Q12 #60 tablet 06/19/19 Sodium Chloride [Sodium Chloride 1 gm Tablet] 1 gm PO BID #30 tablet 06/19/19 History of Present Illiness History of Present Illness: DIEUDONNE FONSECA is a 58 year old female with a past medical history of coronary artery disease, diabetes, small cell lung cancer with mets to brain and subsequent seizures. She presents from home after a witnessed episode of staring off and unresponsiveness. In the emergency department she has a grand mal seizure, found to have metabolic acidosis and hyperglycemia. She is a poor historian but from records is under the treatment of Dr. Hester in [place]. CODE STATUS is verified by emergency room provider to be DNR. Patient is arousable by voice and able to state her name but otherwise confused. She is not thought to have a recent change in medications, imaging is unremarkable. She received Keppra loading dose and Keppra level is pending. She is referred to the hospitalist for observation Hospital Course Hospital Course: (1) Stroke MRI was positive for restricted diffusion to the right hippocampus most likely watershed stroke. CT angiogram of the head and neck unremarkable. Echocardiogram still pending. Patient in sinus rhythm. She is on Effient. We did not start aspirin due to increased risk of bleeding. (2) Hyponatremia Unclear etiology. received IV normal saline. urine osmolality is 820 and plasma osmolality 252 and urine sodium 125. Random cortisol level is 3.14. we added Florinef. Continue free water restriction. Na improved. follow up outpatient. 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 Primary voltage tester is Dr. Davin Hester [facility]. Dr. Carlson have called office and spoke to sales receptionist who states that patient is scheduled for follow-up next week. L ast brain MRI according to sales receptionist was December 2018. Oncology was consulted and started steroids. (4) Seizure Likely secondary to known metastatic lung malignancy to the brain Keppra dose to increased from 750 to 1000 mg twice daily Patient became lethargic and we decreased the dose back to 750 mg twice daily (5) Metabolic acidosis Likely secondary to seizure but currently resolved (6) Anemia associated with chemotherapy Iron studies showing elevated ferritin 739. Stopped ferrous sulfate (7) Leukocytosis Likely reactive secondary to seizure. Received antibiotics in the ER but no need to continue at this time as no evidence of pneumonia. Patient is still at risk of aspiration complications from seizure episode. Currently resolved. Patient wants to go home and she is stable for discharge. Continue to follow-up outpatient with PCP and oncology Physical Exam Vital Signs: Temp Pulse Resp BP Pulse Ox 98.3 F 68 20 115/70 96 06/19/19 07:43 06/19/19 07:51 06/19/19 07:51 06/19/19 07:51 06/19/19 07:51 Intake & Output 06/18/19 06/19/19 06/20/19 06:59 06:59 06:59 Intake Total 2360 804 Output Total 1725 1725 Balance 635 -921 Weight 179 lb 10.828 oz 173 lb 4.533 oz Exam: Patient is no acute distress Alert oriented to time place person No anxiety or depression Head: atraumatic normocephalic Pupils: are equal reactive Neck: is supple and trachea is central no lymphadenopathy No pharyngeal erythema or exudates Heart: Regular rate and rhythm, no peripheral edema Lungs: clear to auscul, no respiratory distress Abdomen: nontender nondistended Neurological exam: unremarkable Musculoskeletal: No joint swelling or effusion chronic lower back pain and tenderness No suicidal or homicidal ideation Results Laboratory Results: WBC 9.3 10^3/uL (4.0-10.5) 06/19/19 05:40 RBC 3.26 10^6/uL (3.72-5.28) L 06/19/19 05:40 Hgb 11.7 g/dL (12.0-15.5) L 06/19/19 05:40 Hct 31.9 % (36.0-47.0) L 06/19/19 05:40 MCV 98 fl (80-97) H 06/19/19 05:40 MCH 35.7 pg (27.0-33.4) H 06/19/19 05:40 MCHC 36.6 g/dL (32.0-36.0) H 06/19/19 05:40 RDW 13.8 % (11.5-14.0) 06/19/19 05:40 Plt Count 169 10^3/uL (150-450) 06/19/19 05:40 Lymph % (Auto) 7.3 % (13-45) L 06/16/19 08:20 [place] % (Auto) 9.3 % (3-13) 06/16/19 08:20 Eos % (Auto) 0.0 % (0-6) 06/16/19 08:20 Baso % (Auto) 0.1 % (0-2) 06/16/19 08:20 Reticulocyte # 0.087 10^6/uL (0.028-0.122) 06/13/19 22:35 Absolute Neuts (auto) 5.9 10^3/uL (1.7-8.2) 06/16/19 08:20 Absolute Lymphs (auto) 0.5 10^3/uL (0.5-4.7) 06/16/19 08:20 Absolute Monos (auto) 0.7 10^3/uL (0.1-1.4) 06/16/19 08:20 Absolute Eos (auto) 0.0 10^3/uL (0.0-0.6) 06/16/19 08:20 Absolute Basos (auto) 0.0 10^3/uL (0.0-0.2) 06/16/19 08:20 Seg Neutrophils % 83.3 % (42-78) H 06/16/19 08:20 Retic Count (auto) 2.55 % (0.66-2.85) 06/13/19 22:35 PT 14.1 SEC (11.4-15.4) 06/13/19 22:35 INR 1.09 06/13/19 22:35 APTT 34.2 SEC (23.5-35.8) 06/13/19 22:35 Carbonic Acid 1.42 mmol/L (1.05-1.35) H 06/14/19 02:46 HCO3/H2CO3 Ratio 13:1 06/14/19 02:46 ABG pH 7.23 (7.35-7.45) L 06/14/19 02:46 ABG pCO2 47.3 mmHg (35-45) H 06/14/19 02:46 ABG pO2 65.0 mmHg (80-100) L 06/14/19 02:46 ABG HCO3 19.2 mmol/L (20-24) L 06/14/19 02:46 ABG Total CO2 20.7 mmol/L (21-25) L 06/14/19 02:46 ABG O2 Saturation 88.7 % (94-98) L 06/14/19 02:46 ABG Base Excess -8.0 mmol/L 06/14/19 02:46 VBG pH 7.12 (7.30-7.42) L* 06/13/19 23:10 VBG pCO2 73.7 mmHg (35-63) H* 06/13/19 23:10 VBG HCO3 23.2 mmol/L (20-32) 06/13/19 23:10 VBG Base Excess -7.6 mmol/L 06/13/19 23:10 FiO2 3L 06/14/19 02:46 Sodium 125.0 mmol/L (137-145) L 06/19/19 05:40 Potassium 3.5 mmol/L (3.6-5.0) L 06/19/19 05:40 Chloride 93 mmol/L (98-107) L 06/19/19 05:40 Carbon Dioxide 23 mmol/L (22-30) 06/19/19 05:40 Anion Gap 9 (5-19) 06/19/19 05:40 BUN 17 mg/dL (7-20) 06/19/19 05:40 Creatinine 0.59 mg/dL (0.52-1.25) 06/19/19 05:40 Est GFR ( Amer) > 60 (>60) 06/19/19 05:40 Est GFR (MDRD) Non-Af > 60 (>60) 06/19/19 05:40 Glucose 156 mg/dL (75-110) H 06/19/19 05:40 POC Glucose 200 mg/dL (70-110) H 06/19/19 12:22 Hemoglobin A1c % 8.6 % (4.7-6.0) H 06/16/19 14:51 Serum Osmolality 259 mOsm/kg (275-301) L 06/19/19 05:40 Lactic Acid 1.7 mmol/L (0.7-2.1) 06/13/19 23:10 Calcium 8.2 mg/dL (8.4-10.2) L 06/19/19 05:40 Magnesium 1.5 mg/dL (1.6-2.3) L 06/14/19 06:50 Iron 19.2 ug/dL (37-170) L 06/14/19 06:50 TIBC 241 ug/dL (250-450) L 06/14/19 06:50 % Saturation 8 % 06/14/19 06:50 Ferritin 739.00 ng/mL (11.1-264.0) H 06/14/19 06:50 Total Bilirubin 0.3 mg/dL (0.2-1.3) 06/13/19 22:35 Direct Bilirubin 0.0 mg/dL (0.0-0.4) 06/13/19 22:35 Neonat Total Bilirubin Not Reportable 06/13/19 22:35 Neonat Direct Bilirubin Not Reportable 06/13/19 22:35 Neonat Indirect Bili Not Reportable 06/13/19 22:35 AST 21 U/L (14-36) 06/13/19 22:35 ALT 16 U/L (<35) 06/13/19 22:35 Alkaline Phosphatase 100 U/L (38-126) 06/13/19 22:35 Creatine Kinase 32 U/L (30-135) 06/13/19 22:35 CK-MB (CK-2) 0.34 ng/mL (<4.55) 06/13/19 22:35 Troponin I < 0.012 ng/mL 06/13/19 22:35 Total Protein 6.8 g/dL (6.3-8.2) 06/13/19 22:35 Albumin 3.9 g/dL (3.5-5.0) 06/13/19 22:35 Triglycerides 216 mg/dL (<150) H 06/17/19 04:48 Cholesterol 183.52 mg/dL (0-200) 06/17/19 04:48 LDL Cholesterol Direct 132 mg/dL (<100) H 06/17/19 04:48 VLDL Cholesterol 43.2 mg/dL (10-31) H 06/17/19 04:48 HDL Cholesterol 46 mg/dL (>40) 06/17/19 04:48 Vitamin B12 > 1000.0 pg/mL (239-931) H 06/14/19 06:50 Folate > 20.00 ng/mL (>2.76) 06/14/19 06:50 TSH 1.11 uIU/mL (0.47-4.68) 06/14/19 06:50 Random Cortisol 3.08 ug/dL (None Established) 06/18/19 16:20 Cortisol AM Sample 3.14 ug/dL (4.46-22.7) L 06/18/19 08:50 Urine Color YELLOW 06/13/19 22:35 Urine Appearance CLEAR 06/13/19 22:35 Urine pH 7.0 (5.0-9.0) 06/13/19 22:35 Ur Specific [place] 1.008 06/13/19 22:35 Urine Protein NEGATIVE mg/dL (NEGATIVE) 06/13/19 22:35 Urine Glucose (UA) >=500 mg/dL (NEGATIVE) H 06/13/19 22:35 Urine Ketones NEGATIVE mg/dL (NEGATIVE) 06/13/19 22:35 Urine Blood NEGATIVE (NEGATIVE) 06/13/19 22:35 Urine Nitrite NEGATIVE (NEGATIVE) 06/13/19 22:35 Urine Bilirubin NEGATIVE (NEGATIVE) 06/13/19 22:35 Urine Urobilinogen NEGATIVE mg/dL (<2.0) 06/13/19 22:35 Ur Leukocyte Esterase NEGATIVE (NEGATIVE) 06/13/19 22:35 Urine WBC (Auto) 1 /HPF 06/13/19 22:35 Urine RBC (Auto) 3 /HPF 06/13/19 22:35 Urine Bacteria (Auto) TRACE /HPF 06/13/19 22:35 Squamous Epi Cells Auto 1 /HPF 06/13/19 22:35 Urine Osmolality 418 mOsm/kg (300-900) 06/19/19 05:40 Urine Sodium 80 mmol/L (30-90) 06/19/19 05:40 Urine Ascorbic Acid NEGATIVE (NEGATIVE) 06/13/19 22:35 Urine Opiates Screen NEGATIVE 06/13/19 22:35 Urine Methadone Screen NEGATIVE 06/13/19 22:35 Ur Barbiturates Screen NEGATIVE 06/13/19 22:35 Levetiracetam 36.5 ug/mL (10.0-40.0) 06/14/19 06:50 Ur Phencyclidine Scrn NEGATIVE 06/13/19 22:35 Ur Amphetamines Screen NEGATIVE 06/13/19 22:35 U Benzodiazepines Scrn NEGATIVE 06/13/19 22:35 Urine Cocaine Screen NEGATIVE 06/13/19 22:35 U Marijuana (THC) Screen NEGATIVE 06/13/19 22:35 Serum Alcohol < 10 mg/dL (NONE DETECTED) 06/13/19 22:35 06/13/19 22:35 CK-MB (CK-2) 0.34 Troponin I < 0.012 Impressions: Chest X-Ray 06/13/19 00:00 IMPRESSION: Interstitial prominence. Peribronchial cuffing. Lungs otherwise grossly clear. No adverse change from prior copyright 2010 [employer]- All Rights Reserved Head CT 06/13/19 00:00 IMPRESSION: 1. No acute hemorrhage or mass effect 2. Previous right parietal craniotomy with underlying right parietal changes. Please correlate with clinical history; cannot exclude recurrent/residual tumor on this exam. Head CTA 06/13/19 22:05 IMPRESSION: No evidence of flow significant stenosis/major arterial vessel occlusion, aneurysm, or dissection within the head or neck. Multiple pulmonary nodules. Most severe: 10.5 mm solid suspicious pulmonary nodule within the upper lobe detected on incomplete chest CT. Recommend immediate non-contrast Chest CT for further evaluation. These guidelines do not apply to immunocompromised patients and patients with cancer. Follow up in patients with significant comorbidities as clinically warranted. For lung cancer screening, adhere to Lung-RADS guidelines. Reference: Radiology. 2017; 284(1):228-43. Patchy groundglass opacity within the left upper lobe anterior segment, presumably infectious/inflammatory in etiology. TECHNICAL DOCUMENTATION: Quality ID # 436: Final reports with documentation of one or more dose reduction techniques (e.g., Automated exposure control, adjustment of the mA and/or kV according to patient size, use of iterative reconstruction technique) copyright 2011 [employer]- All Rights Reserved Neck CTA 06/13/19 22:05 IMPRESSION: No evidence of flow significant stenosis/major arterial vessel occlusion, aneurysm, or dissection within the head or neck. Multiple pulmonary nodules. Most severe: 10.5 mm solid suspicious pulmonary nodule within the upper lobe detected on incomplete chest CT. Recommend immediate non-contrast Chest CT for further evaluation. These guidelines do not apply to immunocompromised patients and patients with cancer. Follow up in patients with significant comorbidities as clinically warranted. For lung cancer screening, adhere to Lung-RADS guidelines. Reference: Radiology. 2017; 284(1):228-43. Patchy groundglass opacity within the left upper lobe anterior segment, presumably infectious/inflammatory in etiology. TECHNICAL DOCUMENTATION: Quality ID # 436: Final reports with documentation of one or more dose reduction techniques (e.g., Automated exposure control, adjustment of the mA and/or kV according to patient size, use of iterative reconstruction technique) copyright 2011 [employer]- All Rights Reserved Head MRI 06/15/19 00:00 IMPRESSION: 1. There is abnormal restricted diffusion seen at the right hippocampus. 2. Moderate cerebral atrophy and periventricular white matter changes are seen. 3. Postcontrast imaging is limited by significant motion artifact. Plan Time Spent: Greater than 30 Minutes - 40 minutes Stroke Is this a Stroke Patient?: Yes Acute Heart Failure - Is this a Heart Failure Patient?: No
[2019-06-19 14:39] VITALS: BP 143/73
[2019-06-19] MEDS ORDERED: FLUDROCORTISONE ACETATE 0.1 MG TABLET PO SCH (15:30)
[2019-06-19] MEDS ORDERED: INSULIN GLARGINE,HUM.REC.ANLOG 1,000 UNIT/10 ML VIAL SUBCUT SCH (22:00)
== END 2019-06-19 16:12 | disposition home health service (06) | DRG 65 ==
LOC: ER 20:50 → EH 06-14 05:23 → UNDOADMOB 06-14 05:23 → EH 06-14 06:05 → 4W 06-14 08:00 → OBSVTOIN 06-14 12:57 → 3W 06-16 16:05
PROVIDERS: ADMIT Internal Medicine; ATTEND Internal Medicine
DX: I63.89 Other cerebral infarction (principal); E87.1 Hypo-osmolality and hyponatremia; C79.31 Secondary malignant neoplasm of brain; E87.2 Acidosis; G81.94 Hemiplegia, unspecified affecting left nondominant side; C34.92 Malignant neoplasm of unspecified part of left bronchus or lung; Z66 Do not resuscitate; D64.81 Anemia due to antineoplastic chemotherapy; T45.1X5A Adverse effect of antineoplastic and immunosuppressive drugs, initial encounter; R56.9 Unspecified convulsions; I25.10 Atherosclerotic heart disease of native coronary artery without angina pectoris; I10 Essential (primary) hypertension; E11.9 Type 2 diabetes mellitus without complications; F32.9 Major depressive disorder, single episode, unspecified; F17.210 Nicotine dependence, cigarettes, uncomplicated; E83.42 Hypomagnesemia; I25.2 Old myocardial infarction; Y92.9 Unspecified place or not applicable; Z92.3 Personal history of irradiation; Z79.899 Other long term (current) drug therapy; Z79.4 Long term (current) use of insulin; Z99.81 Dependence on supplemental oxygen
CPT/HCPCS: 36415; 51702; 70450; 70496; 70498; 70553; 71045; 80048; 80053; 80061; 80177; 80307; 81001; 82533; 82550; 82553; 82607; 82728; 82746; 82803; 82962; 83036; 83540; 83550; 83605; 83735; 83930; 83935; 84300; 84443; 84484; 85025; 85027; 85045; 85610; 85730; 87040; 93005; 93010; 93306; 94640; 96361; 96365; 96367; 96368; 96375; 99285; G0378; J0456; J0696; J1642; J1644; J1815; J1953; J2060; J3490; J7030; J7620; J8540; S0119; S0183